=== PATIENT | male | born 1985 | race Caucasian/White ===

== ENCOUNTER → 2016-04-02 | Outpatient (CLI) | payer BC, OTHER ==
[~2016-04-02] MED LIST: ALBU0.08 INH; CHOL20009 PO; DORN1SOL INH; FERR325T5 PO; FEXO1TAB49 PO; FLUD0.1T10 PO; HMLI SC; INSPMPHMLG; MAGN250T3 PO; METO50TA16 PO; MULT-506 PO; MYCO250C26 PO; PANC1CAP PO; PANC1CAP17 PO; PRED20TA2 PO; RRALBUT2.5 NEB; SULF800T23 PO; TACR5CAP PO; TOBRAMYCIN; VLC450 PO; VNTHFA/IN INH; [UNRECOGNIZED DRUG - OTHER] IV
[2016-04-02 10:13] LABS: BASO % 0.6 %; BASO ABS # 0.06 K/uL (0-0.2); COMPLETE YES; EOS % 0.1 %; HEMATOCRIT 32.1 % (42-52); IG% 0.3 %; LYMPH % 14.3 %; LYMPH ABS # 1.44 K/uL (1.2-3.4); MEAN CELL VOLUME 90.7 fL (80-100); MEAN CORPUSCULAR HEMOGLOBIN 30.5 pg (25-34); MEAN CORPUSCULAR HGB CONC 33.6 g/dl (32-36); MEAN PLATELET VOLUME 8.6 fL (7.4-10.4); MONO % 4.8 %; NEUT % 79.9 %; PLATELET COUNT 540 K/uL (130-400); RED BLOOD COUNT 3.54 M/uL (4.7-6.1); WHITE BLOOD COUNT 10.05 K/uL (4.8-10.8)
[2016-04-02 10:39] LABS: ALT/SGPT 54 U/L (12-78); AST/SGOT 22 U/L (15-37); BLOOD UREA NITROGEN 43 mg/dl (7-18); CARBON DIOXIDE 24 mmol/L (21-32); CHLORIDE 108 mmol/L (98-107); GLUCOSE 106 mg/dl (70-99); MAGNESIUM 1.8 mg/dl (1.8-2.4); POTASSIUM 4.4 mmol/L (3.5-5.1); SODIUM 142 mmol/L (136-145)
[2016-04-02 10:44] LABS: ALKALINE PHOSPHATASE 177 U/L (45-117); PHOSPHORUS 3.4 mg/dl (2.5-4.9); TOTAL IRON BINDING CAPACITY 351 mcg/dl (250-450)
[2016-04-06 19:45] LABS: FK506 TACROLIMUS HIGHLY SENS 13.7 MCG/L (5-20); VIT E ALPHA-TOCOPHEROL 22.8 mg/L (5.7-19.9); VIT E BETA&GAMMA-TOCOPHEROL <1.0 mg/L (<=4.3); VITAMIN A** TC 921X 90 mcg/dL (38-98)
== END | disposition home or self-care (01) ==
LOC: C.LAB 12:36
PROVIDERS: ATTEND Transplant Surgery
DX: Z94.2 Lung transplant status (principal); T86.819 Unspecified complication of lung transplant; X58.XXXA Exposure to other specified factors, initial encounter; Z79.899 Other long term (current) drug therapy; D64.9 Anemia, unspecified; E84.9 Cystic fibrosis, unspecified

== ENCOUNTER → 2016-05-04 | Outpatient (CLI) | payer BC, OTHER ==
--- NOTE | 2016-05-04 15:01 | DIAGNOSTIC IMAGING REPORT ---
ULTRASOUND KIDNEYS AND BLADDER CLINICAL HISTORY: Lung transplant complication. Elevated serum creatinine. COMPARISON STUDY: No priors. TECHNIQUE: Real-time, grayscale, and color flow sonography of the kidneys and bladder is performed. Images are reviewed in the transverse and longitudinal planes. FINDINGS: Kidneys: The kidneys are normal in size and echotexture. The right kidney measures 9.1 x 4.8 x 5.4 cm and the left kidney measures 12.1 x 5.5 x 4.7 cm. There is no hydronephrosis. No shadowing renal calculi are identified. There is no sonographic evidence of contour deforming renal mass lesion. No perinephric fluid is identified. Bladder: The bladder is partially decompressed and grossly normal in appearance. Bilateral ureteral jets were seen. IMPRESSION: 1. The kidneys are normal in size and without hydronephrosis. 2. The partially decompressed bladder is grossly normal as imaged. Electronically signed by: Noel Lynn M.D. 05/04/2016 3:00 PM Dictated Date/Time: 05/04/2016 2:58 PM
== END | disposition home or self-care (01) ==
LOC: C.ULTR 14:14
PROVIDERS: ATTEND Internal Medicine Pulmonary Disease
DX: T86.819 Unspecified complication of lung transplant (principal); Z94.2 Lung transplant status; N17.0 Acute kidney failure with tubular necrosis; Y84.9 Medical procedure, unspecified as the cause of abnormal reaction of the patient, or of later complication, without mention of misadventure at the time of the procedure

== ENCOUNTER → 2016-05-30 | Outpatient (CLI) | payer BC, OTHER ==
--- NOTE | 2016-05-30 14:12 | DIAGNOSTIC IMAGING REPORT ---
RIGHT LOWER EXTREMITY VENOUS DOPPLER HISTORY: RIGHT LEG GROIN AREA F/U SCAN Right COMPARISON STUDY: None. FINDINGS: There is normal compressibility, flow, and augmentation within the right lower extremity deep venous system. IMPRESSION: No DVT within the right lower extremity Electronically signed by: Jax Ortiz M.D. 05/30/2016 2:10 PM Dictated Date/Time: 05/30/2016 2:09 PM
== END | disposition home or self-care (01) ==
LOC: C.ULTR 13:39
PROVIDERS: ATTEND Internal Medicine Pulmonary Disease
DX: I82.411 Acute embolism and thrombosis of right femoral vein (principal); E84.9 Cystic fibrosis, unspecified; T86.819 Unspecified complication of lung transplant; Z94.2 Lung transplant status; Y83.0 Surgical operation with transplant of whole organ as the cause of abnormal reaction of the patient, or of later complication, without mention of misadventure at the time of the procedure

== ENCOUNTER → 2016-06-19 | Outpatient (CLI) | payer BC, OTHER | END | disposition home or self-care (01) | LOC: C.RC 09:51 | PROVIDERS: ATTEND Internal Medicine Pulmonary Disease | DX: E84.9 Cystic fibrosis, unspecified (principal); Z94.2 Lung transplant status; Z86.718 Personal history of other venous thrombosis and embolism; N18.2 Chronic kidney disease, stage 2 (mild) ==

== ENCOUNTER → 2016-06-22 | Outpatient (CLI) | payer BC, OTHER ==
[2016-06-22 10:40] LABS: RATIO 8.1 mcg/mg (0-30.0)
[2016-06-22 10:56] LABS: ESTIMATED AVERAGE GLUCOSE 160 mg/dl; HA1C FLAG Normal (Normal)
== END | disposition home or self-care (01) ==
LOC: C.LAB 09:20
PROVIDERS: ATTEND Nurse Practitioner Adult Health
DX: E84.9 Cystic fibrosis, unspecified (principal); E55.9 Vitamin D deficiency, unspecified; E11.65 Type 2 diabetes mellitus with hyperglycemia; Z94.2 Lung transplant status

== ENCOUNTER 2016-07-03 00:18 | Emergency (ER) | payer BC, OTHER ==
[~2016-07-03] VITALS: Ht 165.1 cm; Wt 59.5 kg
[~2016-07-03 00:18] MED LIST changes: -CHOL20009 PO; -FERR325T5 PO; -FEXO1TAB49 PO; -FLUD0.1T10 PO; -INSPMPHMLG; -MAGN250T3 PO; -METO50TA16 PO; -MYCO250C26 PO; -PANC1CAP17 PO; -PRED20TA2 PO; -RRALBUT2.5 NEB; -SULF800T23 PO; -TACR5CAP PO; -VLC450 PO; -VNTHFA/IN INH
[2016-07-03 00:20] VITALS: TEMP 37.2; Ht 165.1 cm; Wt 59.5 kg
[2016-07-03] MEDS ORDERED: HYDROmorphone INJ 1 MG/ML SYR IV STA ×2 (00:36→07:59)
[2016-07-03] MEDS ORDERED: SODIUM CHLORIDE 0.9% 1000ML 1,000 ML IV STA ×2 (00:36)
[2016-07-03] MEDS ORDERED: ONDANSETRON INJ 2 MG/ML 2 ML VIAL IV STA (00:36)
[2016-07-03 00:53] VITALS: O2SAT 96
[2016-07-03 01:12] LABS: HEMATOCRIT 31.9 % (42-52); MEAN CELL VOLUME 87.9 fL (80-100); MEAN CORPUSCULAR HEMOGLOBIN 30.3 pg (25-34); MEAN CORPUSCULAR HGB CONC 34.5 g/dl (32-36); MEAN PLATELET VOLUME 8.6 fL (7.4-10.4); PLATELET COUNT 564 K/uL (130-400); RED BLOOD COUNT 3.63 M/uL (4.7-6.1); WHITE BLOOD COUNT 4.46 K/uL (4.8-10.8)
[2016-07-03] MEDS ORDERED: LEVAQUIN 750MG / 150ML D5W IV STA (01:14)
[2016-07-03] MEDS ORDERED: ALBUT/IPRATROP 3MG/0.5MG NEB 3 ML VIAL INH STA (01:20)
[2016-07-03] MEDS ORDERED: HYDROmorphone INJ 0.5 MG/0.5 ML SYR IV STA (01:20)
[2016-07-03] MEDS ORDERED: PANC1CAP17 PO (01:30)
[2016-07-03] MEDS ORDERED: DEXAMETHASONE SOD INJ 10 MG/ML VIAL IV ONE (01:30)
[2016-07-03] MEDS ORDERED: CHOL20009 PO (01:31)
[2016-07-03 01:32] LABS: BUN/CREATININE RATIO 18.8 (10-20); CALCIUM 8.5 mg/dl (8.5-10.1); CREATININE 1.8 mg/dl (0.60-1.40); POTASSIUM 5.2 mmol/L (3.5-5.1)
[2016-07-03] MEDS ORDERED: VLC450 PO (01:32)
[2016-07-03] MEDS ORDERED: PRED20TA2 PO (01:33)
[2016-07-03] MEDS ORDERED: FLUD0.1T10 PO (01:33)
[2016-07-03] MEDS ORDERED: FERR325T5 PO (01:35)
[2016-07-03] MEDS ORDERED: MYCO250C26 PO (01:35)
[2016-07-03] MEDS ORDERED: SULF800T23 PO (01:36)
[2016-07-03] MEDS ORDERED: FEXO1TAB49 PO (01:37)
[2016-07-03 01:39] LABS: COMPLETE YES; DOHLE BODIES 1+; IG% 2.2 %; LYMPH % 8.5 %; LYMPH ABS # 0.38 K/uL (1.2-3.4); MONO % 4.5 %; NEUT % 84.8 %
[2016-07-03] MEDS ORDERED: TACR5CAP PO (01:43)
[2016-07-03] MEDS ORDERED: VNTHFA/IN INH (01:45)
[2016-07-03] MEDS ORDERED: RRALBUT2.5 NEB (01:46)
[2016-07-03] MEDS ORDERED: METO50TA16 PO (01:47)
[2016-07-03] MEDS ORDERED: INSPMPHMLG (01:48)
[2016-07-03] MEDS ORDERED: MAGN250T3 PO (01:49)
[2016-07-03 01:50] LABS: BETA-HYDROXYBUTYRATE 1.32 mg/dL (0.2-2.81)
--- NOTE | 2016-07-03 02:59 | EMERGENCY ROOM VISIT NOTE ---
History First contact with patient: 00:23 Chief Complaint: ABDOMINAL PAIN Stated Complaint: STOMACH PAIN Nursing Triage Summary: c/o abd pain since the middle of the day vomited one time no disrrhea. History of Present Illness The patient is a 31 year old male who presents to the Emergency Room with complaints of productive cough with yellow sputum for the past few days who developed upper abdominal pain today described as aching, ranging in severity 8 out of 10 with nausea and vomiting. Patient called his lung transplant specialist in [place] and was advised take Mucinex. Patient states the pain got worse and came here. No history of pancreatitis. He still has his gallbladder. He's had a hernia repair. Blood sugars have been around 150-250. This is normal for him. Patient denies chest pain, dyspnea, fever, chills, diarrhea, back pain, radiating pain, lightheadedness or dizziness. He is tolerating by mouth fluids and food. Lung transplant was in February 2016. Patient states he's been doing well until now. Review of Systems See HPI for pertinent positives & negatives. A total of 10 systems reviewed and were otherwise negative. Past Medical/Surgical History Medical Problems: (1) Cystic fibrosis (2) Pneumonia Lung transplant, diabetes, hernia repair Social History Smoking Status: Never Smoker Alcohol Use: none Drug Use: none Marital Status: Housing Status: lives with family Current/Historical Medications Scheduled Cholecalciferol (Vitamin D), 4,000 UNIT PO DAILY Ferrous Sulfate (Ferrous Sulfate), 325 MG PO BIDM Fexofenadine Hcl (Radha Allergy), 1 TAB PO DAILY Fludrocortisone Acetate (Florinef), 0.1 MG PO DAILY Insulin Human Lispro (Insulin Humalog Pump ), 1 EA UD Magnesium (Magnesium 250 mg), 1 TAB PO BID Metoprolol Tartrate (Lopressor) (Lopressor), 50 MG PO BID Mycophenolate Mofetil (Cellcept), 4 CAP PO BID Pancrelipase (Lipase-Protease- (Zenpep 47088 Unit), PO UD Prednisone (Prednisone Tab), 20 MG PO DAILY Sulfa/Trimethoprim (Bactrim Ds 800MG/160MG), 1 TAB PO 3XWK Tacrolimus (Prograf), 10 MG PO BID Valganciclovir (Valcyte), 900 MG PO DAILY Scheduled PRN Albuterol Hfa (Ventolin Hfa), 2 PUFFS INH Q4 PRN for SOB/Wheezing Albuterol Sulf (Albuterol Sulfate), 5 MG NEB Q4 PRN for SOB/Wheezing Allergies Coded Allergies: Vancomycin (Unverified Allergy, Intermediate, RED MAN SYNDROME, 07/03/16) Clavulanic Acid (Unverified Allergy, Unknown, allergy betalactamase inhibitor, 07/03/16) Penicillins (Unverified Allergy, Unknown, ., 07/03/16) Physical Exam Vital Signs Date Time Temp Pulse Resp B/P Pulse Ox O2 Delivery O2 Flow Rate FiO2 07/03/16 02:58 93 20 120/78 94 Room Air 07/03/16 01:56 94 18 129/83 92 Room Air 07/03/16 00:56 94 07/03/16 00:54 93 20 139/91 96 Room Air 07/03/16 00:53 96 Room Air 07/03/16 00:53 96 Room Air 07/03/16 00:20 37.2 88 16 151/91 96 Room Air Physical Exam VITALS: Vitals are noted on the nurse's note and reviewed by myself. Vital signs stable. GENERAL: Pleasant male, in no acute distress, nondiaphoretic, well-developed well-nourished. SKIN: The skin was without rashes, erythema, edema, or bruising. There is no tenting of the skin. Capillary reflex less than 2 seconds. HEAD: Normocephalic atraumatic. EARS: External auditory canals clear, tympanic membranes pearly jones without erythema or effusion bilaterally. EYES: Pupils equal round and reactive to light and accommodation. Conjunctivae without injection, sclerae without icterus. Extraocular movements intact. NOSE: Patent, turbinates without inflammation or discharge. No sinus tenderness. MOUTH: Mucous membranes moist. Pharynx without erythema or exudate. Uvula midline. Airway patent. Tongue does not deviate. NECK: Supple without nuchal rigidity. No lymphadenopathy. No thyromegaly. Cervical spine is nontender. No JVD. HEART: Regular rate and rhythm without murmurs gallops or rubs. LUNGS: Mild diffuse end expiratory wheezes, without rales or rhonchi. No dullness to percussion. No retractions or accessory muscle use. ABDOMEN: Positive bowel sounds x 4. Normal tympanic percussion. Soft, tender to palpation epigastric left upper quadrant, no CVA tenderness, without masses or organomegaly. Adrian sign negative. No guarding or rebound tenderness. MUSCULOSKELETAL: No muscle atrophy, erythema, or edema noted. NEURO: Patient was alert and oriented to person place and time. Normal sensation to light and sharp touch. No focal neurological deficits. Medical Decision & Procedures Laboratory Results 07/03/16 01:05 Red Blood Count 3.63, Mean Corpuscular Volume 87.9, Mean Corpuscular Hemoglobin 30.3, Mean Corpuscular Hemoglobin Concent 34.5, Mean Platelet Volume 8.6, Neutrophils (%) (Auto) 84.8, Lymphocytes (%) (Auto) 8.5, Monocytes (%) (Auto) 4.5, Eosinophils (%) (Auto) 0.0, Basophils (%) (Auto) 0.0, Neutrophils # (Auto) 3.78, Lymphocytes # (Auto) 0.38, Monocytes # (Auto) 0.20, Eosinophils # (Auto) 0.00, Basophils # (Auto) 0.00 07/03/16 01:05 Test 07/03/16 01:05 07/03/16 01:18 White Blood Count 4.46 K/uL (4.8-10.8) Red Blood Count 3.63 M/uL (4.7-6.1) Hemoglobin 11.0 g/dL (14.0-18.0) Hematocrit 31.9 % (42-52) Mean Corpuscular Volume 87.9 fL (80-100) Mean Corpuscular Hemoglobin 30.3 pg (25-34) Mean Corpuscular Hemoglobin Concent 34.5 g/dl (32-36) Platelet Count 564 K/uL (130-400) Mean Platelet Volume 8.6 fL (7.4-10.4) Neutrophils (%) (Auto) 84.8 % Lymphocytes (%) (Auto) 8.5 % Monocytes (%) (Auto) 4.5 % Eosinophils (%) (Auto) 0.0 % Basophils (%) (Auto) 0.0 % Neutrophils # (Auto) 3.78 K/uL (1.4-6.5) Lymphocytes # (Auto) 0.38 K/uL (1.2-3.4) Monocytes # (Auto) 0.20 K/uL (0.11-0.59) Eosinophils # (Auto) 0.00 K/uL (0-0.5) Basophils # (Auto) 0.00 K/uL (0-0.2) RDW Standard Deviation 41.9 fL (36.4-46.3) RDW Coefficient of Variation 12.9 % (11.5-14.5) Immature Granulocyte % (Auto) 2.2 % Immature Granulocyte # (Auto) 0.10 K/uL (0.00-0.02) Dohle Bodies 1+ Anion Gap 7.0 mmol/L (3-11) Est Creatinine Clear Calc Drug Dose 49.1 ml/min Estimated GFR () 56.1 Estimated GFR (Non- 48.4 BUN/Creatinine Ratio 18.8 (10-20) Calcium Level 8.5 mg/dl (8.5-10.1) Total Bilirubin 0.6 mg/dl (0.2-1) Direct Bilirubin 0.2 mg/dl (0-0.2) Aspartate Amino Transf (AST/SGOT) 22 U/L (15-37) Alanine Aminotransferase (ALT/SGPT) 27 U/L (12-78) Alkaline Phosphatase 96 U/L (45-117) Total Protein 7.2 gm/dl (6.4-8.2) Albumin 3.2 gm/dl (3.4-5.0) Lipase 32 U/L (73-393) Beta-Hydroxybutyric Acid 1.32 mg/dL (0.2-2.81) Bedside Lactic Acid Venous 1.00 mmol/L (0.90-1.70) Medications Administered Medications (Trade) Dose Ordered Sig/Tracy Route Start Time Stop Time Status Last Admin Dose Admin Hydromorphone HCl (Dilaudid Inj) 1 mg NOW STAT IV 07/03/16 00:36 07/03/16 00:39 DC 07/03/16 00:57 1 MG Ondansetron HCl 4 mg 4 mg NOW STAT IV 07/03/16 00:36 07/03/16 00:39 DC 07/03/16 00:57 4 MG Sodium Chloride 1,000 ml @ 999 mls/hr Q1H1M STAT IV 07/03/16 00:36 07/03/16 01:36 DC 07/03/16 00:57 999 MLS/HR Sodium Chloride (Nss 1000ml) 1,000 ml @ 125 mls/hr Q8H STAT IV 07/03/16 00:36 07/03/16 08:35 07/03/16 00:36 125 MLS/HR Levofloxacin (Levaquin / D5W) 750 mg NOW STAT IV 07/03/16 01:14 07/03/16 01:15 DC 07/03/16 01:56 750 MG Albuterol/ Ipratropium (Duoneb) 3 ml NOW STAT INH 07/03/16 01:20 07/03/16 01:21 DC 07/03/16 01:29 3 ML Dexamethasone Sodium Phosphate (Decadron Inj) 10 mg NOW ONCE IV 07/03/16 01:30 07/03/16 01:31 DC 07/03/16 01:29 10 MG Hydromorphone HCl (Dilaudid Inj) 0.5 mg NOW STAT IV 07/03/16 01:20 07/03/16 01:21 DC 07/03/16 01:29 0.5 MG ED Course Prior records/ancillary studies reviewed. Triage Nursing notes reviewed. Additional history obtained from family The patient's history was concerning for abdominal pain. Differential diagnosis: Etiologies such as pneumonia, appendicitis, diverticulitis, PUD, biliary pathology, UTI, pancreatitis, obstruction, mesenteric ischemia, aortic pathology , infections, inflammatory bowel disease, renal colic, as well as others were entertained. Physical examination findings: As above. ER treatment provided: Dilaudid, Zofran, IV fluids, Decadron, albuterol, Levaquin On reassessment the patient felt better. Diagnostics interpreted by me: ECG: Normal sinus, normal intervals, no acute ST-T wave changes. Impression normal sinus rhythm interpreted by myself The labs revealed mild anemia, hyperglycemia without DKA mildly elevated potassium at 5.1. Blood cultures pending, negative lactic acid Imaging studies: CT ABDOMEN & PELVIS: Impression: Small bowel obstruction with apparent transition point in the deep pelvis (2-56) . No pneumatosis or free air. Patchy areas of consolidation seen within the lower lobes likely representing pneumonia, to include aspiration pneumonia. Small amount of free fluid in the pelvis. Additional findings: The liver, gallbladder, spleen, pancreas, and adrenal glands are unremarkable. The kidneys, ureters and urinary bladder are unremarkable. The appendix is unremarkable. Noninflamed colonic diverticulosis. No acute osseous abnormality. Radiologist: Dickson Osei MD Chest x-ray concerning for right lower lobe pneumonia per my interpretation, no free air Consultation: A consultation was placed with the transplant specialist at [facility] per patient's request for transfer,Dr. Soares. The case was discussed and diagnostics were reviewed. The patient was evaluated in the ER for further treatment. Exam and history seem consistent with pneumonia and bowel obstruction. Patient was started on antibiotics. He is placed nothing by mouth. He is requesting transfer to his transplant hospital in [place]. Transfer paperwork was filled out patient was transferred in stable condition. By the evaluation outlined above emergent etiologies such as appendicitis, diverticulitis, PUD, biliary pathology, UTI, pancreatitis, mesenteric ischemia, aortic pathology, inflammatory bowel disease, renal colic, as well as others were deemed relatively unlikely. The pt informed about the findings as listed above. All questions were answered and pleased with the treatment. Case reviewed with my attending Medical Decision As above Impression Primary Impression: Bilateral pneumonia Additional Impressions: Small bowel obstruction Cystic fibrosis Departure Information Dispostion Transfer Acute Care Facility Condition [facility] Referrals Aaliyah Renteria M.D. (MEDICAL) (PCP) Patient Instructions [facility] Problem Qualifiers Primary Impression: Bilateral pneumonia Pneumonia type: due to unspecified organism Lung location: lower lobe of lung Qualified Codes: J18.9 - Pneumonia, unspecified organism
--- NOTE | 2016-07-03 06:51 | DIAGNOSTIC IMAGING REPORT ---
CHEST ONE VIEW PORTABLE CLINICAL HISTORY: CHEST PAIN dyspnea COMPARISON STUDY: 11/28/2012 FINDINGS: Bibasilar parenchymal infiltrates. Central catheter in superior vena cava. Pulmonary apices are clear. IMPRESSION: Bibasilar parenchymal infiltrative change Electronically signed by: Mal Field M.D. 07/03/2016 6:49 AM Dictated Date/Time: 07/03/2016 6:46 AM
--- NOTE | 2016-07-03 07:16 | DIAGNOSTIC IMAGING REPORT ---
ABDOMEN AND PELVIS CT WITHOUT CONTRAST CT DOSE: 271.99 mGy.cm HISTORY: Pain upper abd pain, CF and lung transplant TECHNIQUE: Multiaxial CT images of the abdomen and pelvis were performed without contrast. COMPARISON STUDY: None. FINDINGS: Bilateral bibasilar parenchymal infiltrative change. Liver spleen and pancreas are unremarkable. Kidneys are considered negative for hydronephrosis. There are no abnormal calcifications. Small hiatal hernia. Findings consistent with distal small bowel obstruction read etiology is unknown. No evidence for pneumatosis. The appendix is normal. Partial fecal dilatation of the small bowel. No evidence for colonic distention. Trace free fluid within the right central pelvic cul-de-sac. Nonspecific curvilinear density transaxial image 72 of 90 within the soft tissue pelvis. IMPRESSION: 1. Nonspecific distal small bowel obstructive change. 2. Etiology is unknown. 3. Bibasilar parenchymal infiltrative change. 4. Small mild free fluid within pelvic cul-de-sac with nonspecific calcific density as discussed. 5. Nonobstructive colonic pattern. Electronically signed by: Mal Field M.D. 07/03/2016 7:15 AM Dictated Date/Time: 07/03/2016 7:10 AM
[2016-07-03 08:00] VITALS: BP 129/87; PULSE 77
[2016-07-03] MEDS ORDERED: ONDANSETRON INJ 2 MG/ML 2 ML VIAL ONE (08:14)
[2016-07-03 08:20] VITALS: O2SAT 95
== END 2016-07-03 08:21 | disposition short-term general hospital (02) ==
LOC: C.EDB 00:19
DX: J18.9 Pneumonia, unspecified organism (principal); K56.60 Unspecified intestinal obstruction; E84.9 Cystic fibrosis, unspecified; E11.9 Type 2 diabetes mellitus without complications; Z94.2 Lung transplant status; Z79.4 Long term (current) use of insulin; Z79.899 Other long term (current) drug therapy; Z88.0 Allergy status to penicillin; Z88.1 Allergy status to other antibiotic agents; Z88.8 Allergy status to other drugs, medicaments and biological substances

== ENCOUNTER → 2016-11-08 | Outpatient (CLI) | payer BC, OTHER ==
[~2016-11-08] MED LIST changes: -ALBU0.08 INH; +CHOL20009 PO; -DORN1SOL INH; +FERR325T5 PO; +FEXO1TAB49 PO; +FLUD0.1T10 PO; -HMLI SC; +INSPMPHMLG; +MAGN250T3 PO; +METO50TA16 PO; -MULT-506 PO; +MYCO250C26 PO; -PANC1CAP PO; +PANC1CAP17 PO; +PRED20TA2 PO; +RRALBUT2.5 NEB; +SULF800T23 PO; +TACR5CAP PO; -TOBRAMYCIN; +VLC450 PO; +VNTHFA/IN INH; -[UNRECOGNIZED DRUG - OTHER] IV
== END | disposition home or self-care (01) ==
LOC: C.RC 10:23
PROVIDERS: ATTEND Internal Medicine Pulmonary Disease
DX: E84.9 Cystic fibrosis, unspecified (principal); Z94.2 Lung transplant status; N17.9 Acute kidney failure, unspecified; N18.9 Chronic kidney disease, unspecified; E87.5 Hyperkalemia

== ENCOUNTER → 2017-03-12 | Outpatient (CLI) | payer BC, OTHER ==
--- NOTE | 2017-03-25 06:47 | CODING QUERY MEDICAL NECESSITY ---
SUPPORTING DIAGNOSIS NEEDED A supporting diagnosis is required for the test/procedure performed on this patient in order for us to be reimbursed by the patient's insurance. Please provide a supporting diagnosis for the following test/procedure listed below next to the test name along with your signature. *If there is no additional diagnosis for this patient that would support the following test/procedure please document that below next to the test/procedure. Test(s)/Procedure(s) that require a supporting diagnosis: * DXA, BONE DENSITY AXIAL DIAGNOSIS: Provider Signature: Date: Thank you Tamela Entasso Information Management Once completed, please kindly fax back to [phone] For questions please call [phone]
== END | disposition home or self-care (01) ==
LOC: C.MAMM 13:29
PROVIDERS: ATTEND Internal Medicine Pulmonary Disease
DX: E84.9 Cystic fibrosis, unspecified (principal); Z94.2 Lung transplant status; Z79.899 Other long term (current) drug therapy

== ENCOUNTER 2019-10-04 07:12 | Inpatient (IN) ==
[2019-10-04] MEDS ORDERED: MoRPHine SULFATE 4 MG/ML 1 ML CARP\\VIAL IV STA ×2 (07:36→11:52)
[2019-10-04] MEDS ORDERED: ONDANSETRON INJ 2 MG/ML 2 ML VIAL IV STA (07:36)
--- NOTE | 2019-10-04 07:38 | Emergency Department Note ---
History of Present Illness General Chief complaint: Cardiac Assessment Stated complaint: CHEST PAINS - DEHYDRATED,CRAMPING Time Seen by Provider: 10/04/19 07:25 History of Present Illness Maximum Pain Intensity: 8 This is a 34-year-old male that presents to the emergency department via private vehicle with complaints of "chest pain, dehydrated, cramping". 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 He states that he often works late hours till 1 or 2 in the morning. 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 He describes it as a "burning sensation in the lungs". He also notes some chest pain in the substernal region. He states that he has a history of cystic fibrosis and underwent lung transplantation a few years ago at [facility], [place], operated by [facility] but the symptoms do not seem consistent with previous illness. The patient denies any trauma or injury. No fevers or chills. No cough. He does not feel short of breath. Home Medications Home Medications Medication Instructions Recorded Confirmed Type albuterol sulfate [Ventolin HFA] 2 puff INHALATION Q4H PRN 08/10/18 10/04/19 History cholecalciferol (vitamin D3) 4,000 unit PO QDL 08/10/18 10/04/19 History [Vitamin D3] ferrous sulfate 325 mg PO BIDM 08/10/18 10/04/19 History fexofenadine [Radha Allergy] 180 mg PO QAM 08/10/18 10/04/19 History mucdii-tzbrvmtg-nlmgltn [Zenpep] 6 cap PO TIDM 08/10/18 10/04/19 History magnesium 250 mg PO BID 08/10/18 10/04/19 History metoprolol tartrate 50 mg PO BID 08/10/18 10/04/19 History prednisone 5 mg PO QAM 08/10/18 10/04/19 History sulfamethoxazole-trimethoprim 0.5 tab PO 3XWK 08/10/18 10/04/19 History tacrolimus 2 mg PO BID 08/10/18 10/04/19 History valganciclovir 450 mg PO DAILY 08/10/18 10/04/19 History Novolog U-100 Insulin aspart 100 See Rx Instructions CONTINUOUS 04/23/19 10/04/19 Rx unit/mL subcutaneous solution SUBCUTANEOUS INFUSION UD #30 ml NS azithromycin 250 mg PO USEASDIRECTD 10/04/19 10/04/19 History esomeprazole magnesium 40 mg PO BID 10/04/19 10/04/19 History everolimus (immunosuppressive) 1.5 mg PO BID 10/04/19 10/04/19 History [Zortress] Allergies Allergy/AdvReac Type Severity Reaction Status Date / Time vancomycin Allergy Intermediate RED MAN Unverified 10/04/19 09:50 SYNDROME clavulanic acid Allergy Unknown allergy Unverified 10/04/19 09:50 betalactamase inhibitor Penicillins Allergy Unknown . 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 GERD (gastroesophageal reflux disease) H/O testicular biopsy Insulin dependent diabetes mellitus Surgical History H/O inguinal hernia repair Lung transplanted Social History Preferred Language: Estonian Communication Ability: Effective Advertising Display Rotator Required: No Beliefs That Will Affect Care: None Current Living Situation: Other Current Living Situation Comment: friend Other Information That Helps Us Care for You: No Feels Safe at Home: Yes Safety Concerns: Feels Safe At This Time Smoking Status: Never smoker Hx Alcohol Use: Yes Alcohol type: beer Hx Substance Use: No Review of Systems A total of 10 systems reviewed and were otherwise negative Physical Exam Vital Signs Vital Signs - 24 hr 10/04/19 07:20 10/04/19 07:30 10/04/19 07:31 Temperature 36.9 C Temperature Source Oral Pulse Rate 66 61 Pulse Rate [Finger] Pulse Rate from SpO2 Sensor 61 Respiratory Rate 20 16 Respiratory Effort / Characteristics Non-Labored Respiratory Depth Normal Respiratory Pattern Regular Blood Pressure 150/89 H Blood Pressure [Right Arm] Blood Pressure Mean 109 120 Blood Pressure Mean [Right Arm] Pulse Oximetry 97 99 99 Oxygen Delivery Method Room Air Room Air Room Air Sepsis Recent Fever Within 48 Hours No Sepsis New/Unexplained Change in Mental Status N/A Sepsis Action Taken by Nursing No Action Required 10/04/19 07:33 10/04/19 07:40 10/04/19 07:50 Temperature Temperature Source Pulse Rate 62 59 L 66 Pulse Rate [Finger] Pulse Rate from SpO2 Sensor 64 59 L 67 Respiratory Rate 22 16 14 Respiratory Effort / Characteristics Respiratory Depth Respiratory Pattern Blood Pressure Blood Pressure [Right Arm] Blood Pressure Mean Blood Pressure Mean [Right Arm] Pulse Oximetry 93 100 99 Oxygen Delivery Method Room Air Room Air Room Air Sepsis Recent Fever Within 48 Hours Sepsis New/Unexplained Change in Mental Status Sepsis Action Taken by Nursing 10/04/19 08:00 10/04/19 08:01 10/04/19 08:10 Temperature Temperature Source Pulse Rate 60 60 62 Pulse Rate [Finger] Pulse Rate from SpO2 Sensor 60 61 63 Respiratory Rate 18 13 18 Respiratory Effort / Characteristics Respiratory Depth Respiratory Pattern Blood Pressure 147/93 H Blood Pressure [Right Arm] Blood Pressure Mean 106 Blood Pressure Mean [Right Arm] Pulse Oximetry 100 100 100 Oxygen Delivery Method Room Air Room Air Room Air Sepsis Recent Fever Within 48 Hours Sepsis New/Unexplained Change in Mental Status Sepsis Action Taken by Nursing 10/04/19 08:20 10/04/19 08:30 10/04/19 08:31 Temperature Temperature Source Pulse Rate 77 68 76 Pulse Rate [Finger] Pulse Rate from SpO2 Sensor 78 69 73 Respiratory Rate 15 18 15 Respiratory Effort / Characteristics Respiratory Depth Respiratory Pattern Blood Pressure 134/91 Blood Pressure [Right Arm] Blood Pressure Mean 103 Blood Pressure Mean [Right Arm] Pulse Oximetry 98 97 97 Oxygen Delivery Method Room Air Room Air Room Air Sepsis Recent Fever Within 48 Hours Sepsis New/Unexplained Change in Mental Status Sepsis Action Taken by Nursing 10/04/19 08:40 10/04/19 09:18 10/04/19 09:20 Temperature Temperature Source Pulse Rate 68 71 71 Pulse Rate [Finger] Pulse Rate from SpO2 Sensor 68 Respiratory Rate 16 24 13 Respiratory Effort / Characteristics Respiratory Depth Respiratory Pattern Blood Pressure Blood Pressure [Right Arm] Blood Pressure Mean Blood Pressure Mean [Right Arm] Pulse Oximetry 97 Oxygen Delivery Method Room Air Room Air Room Air Sepsis Recent Fever Within 48 Hours Sepsis New/Unexplained Change in Mental Status Sepsis Action Taken by Nursing 10/04/19 09:30 10/04/19 09:40 10/04/19 09:50 Temperature Temperature Source Pulse Rate 68 68 61 Pulse Rate [Finger] Pulse Rate from SpO2 Sensor Respiratory Rate 15 13 14 Respiratory Effort / Characteristics Respiratory Depth Respiratory Pattern Blood Pressure Blood Pressure [Right Arm] Blood Pressure Mean Blood Pressure Mean [Right Arm] Pulse Oximetry Oxygen Delivery Method Room Air Room Air Room Air Sepsis Recent Fever Within 48 Hours Sepsis New/Unexplained Change in Mental Status Sepsis Action Taken by Nursing 10/04/19 10:00 10/04/19 10:10 10/04/19 10:20 Temperature Temperature Source Pulse Rate 65 60 68 Pulse Rate [Finger] Pulse Rate from SpO2 Sensor Respiratory Rate 14 13 17 Respiratory Effort / Characteristics Respiratory Depth Respiratory Pattern Blood Pressure Blood Pressure [Right Arm] Blood Pressure Mean Blood Pressure Mean [Right Arm] Pulse Oximetry Oxygen Delivery Method Room Air Room Air Room Air Sepsis Recent Fever Within 48 Hours Sepsis New/Unexplained Change in Mental Status Sepsis Action Taken by Nursing 10/04/19 10:30 10/04/19 10:40 10/04/19 10:50 Temperature Temperature Source Pulse Rate 63 67 63 Pulse Rate [Finger] Pulse Rate from SpO2 Sensor Respiratory Rate 12 12 14 Respiratory Effort / Characteristics Respiratory Depth Respiratory Pattern Blood Pressure Blood Pressure [Right Arm] Blood Pressure Mean Blood Pressure Mean [Right Arm] Pulse Oximetry Oxygen Delivery Method Room Air Room Air Room Air Sepsis Recent Fever Within 48 Hours Sepsis New/Unexplained Change in Mental Status Sepsis Action Taken by Nursing 10/04/19 11:00 10/04/19 11:10 10/04/19 11:20 Temperature Temperature Source Pulse Rate 74 63 63 Pulse Rate [Finger] Pulse Rate from SpO2 Sensor Respiratory Rate 16 16 18 Respiratory Effort / Characteristics Respiratory Depth Respiratory Pattern Blood Pressure Blood Pressure [Right Arm] Blood Pressure Mean Blood Pressure Mean [Right Arm] Pulse Oximetry Oxygen Delivery Method Room Air Room Air Room Air Sepsis Recent Fever Within 48 Hours Sepsis New/Unexplained Change in Mental Status Sepsis Action Taken by Nursing 10/04/19 11:29 10/04/19 11:30 10/04/19 11:31 Temperature Temperature Source Pulse Rate 71 58 L 58 L Pulse Rate [Finger] 73 Pulse Rate from SpO2 Sensor 71 59 L 58 L Respiratory Rate 15 10 L Respiratory Effort / Characteristics Non-Labored Spontaneous Respiratory Depth Normal Respiratory Pattern Regular Blood Pressure 134/88 146/93 H Blood Pressure [Right Arm] 146/93 H Blood Pressure Mean 98 100 Blood Pressure Mean [Right Arm] 110 Pulse Oximetry 98 99 99 Oxygen Delivery Method Room Air Room Air Room Air Sepsis Recent Fever Within 48 Hours Sepsis New/Unexplained Change in Mental Status Sepsis Action Taken by Nursing 10/04/19 11:40 10/04/19 11:50 Temperature Temperature Source Pulse Rate 59 L 58 L Pulse Rate [Finger] Pulse Rate from SpO2 Sensor 58 L 58 L Respiratory Rate 11 L 17 Respiratory Effort / Characteristics Respiratory Depth Respiratory Pattern Blood Pressure Blood Pressure [Right Arm] Blood Pressure Mean Blood Pressure Mean [Right Arm] Pulse Oximetry 95 97 Oxygen Delivery Method Room Air Room Air Sepsis Recent Fever Within 48 Hours Sepsis New/Unexplained Change in Mental Status Sepsis Action Taken by Nursing VITAL SIGNS - Vital signs and nursing notes were reviewed. Stable and afebrile. GENERAL - 34-year-old male appearing his stated age who is in no acute distress. Communicates well with provider and answers questions appropriately. SKIN - Without rashes. No meningeal or petechial rash. HEAD - NC/AT. EYES - PERRL with EOMI bilaterally. Sclera anicteric. EARS - No deformities of external structures noted on gross examination bilaterally. NOSE - Midline and without cyanosis. No epistaxis or purulent drainage noted. MOUTH/OROPHARYNX - Without perioral cyanosis. Buccal mucosa pink and moist and without leukoplakia. Tongue midline with equal elevation of palate bilaterally. No tonsillar hypertrophy, erythema, or exudates noted. Good dentition noted. NECK - Neck with FROM. No nuchal rigidity. LUNGS - Chest wall symmetric without accessory muscle use, intercostals retractions, or central cyanosis. Normal vesicular breath sounds CTA B/L. No wheezes, rales, or rhonchi appreciated. CARDIAC - RRR with S1/S2. No murmur, rubs, or gallops appreciated. EXTREMITIES - No clubbing or peripheral cyanosis. No pretibial edema present. +5/5 strength noted in UE/LE bilaterally. NEUROLOGIC - Cranial nerves II through XII grossly intact. PSYCH - A&O, and cooperates fully with examiner. Pt is very pleasant and interacts well with examiner. Course Administered Medications Sodium Chloride (Nss 1000ml) 1,000 mls @ 100 mls/hr IV .Q10H SIOMARA Stop: 10/04/19 22:14 Last Admin: 10/04/19 13:41 Dose: 100 mls/hr Documented by: [id number] Discontinued Medications Sodium Chloride (Nss) 500 mls @ 500 mls/hr IV .Q1H ONE Stop: 10/04/19 08:51 Last Infusion: 10/04/19 09:15 Dose: 0 mls/hr Documented by: [id number] Admin: 10/04/19 08:09 Dose: 500 mls/hr Documented by: [id number] Morphine Sulfate (Morphine Sulfate) 4 mg IV NOW STA Stop: 10/04/19 07:37 Last Admin: 10/04/19 08:09 Dose: 4 mg Documented by: [id number] Morphine Sulfate (Morphine Sulfate) 4 mg IV NOW STA Stop: 10/04/19 11:53 Last Admin: 10/04/19 11:58 Dose: 4 mg Documented by: [id number] Ondansetron HCl (Zofran) 4 mg IV NOW STA Stop: 10/04/19 07:37 Last Admin: 10/04/19 08:09 Dose: 4 mg Documented by: [id number] Potassium Chloride (Klor-Con M20) 20 meq PO NOW STA Stop: 10/04/19 12:04 Last Admin: 10/04/19 12:31 Dose: 20 meq Documented by: [id number] Medical Decision Making Laboratory Data Result diagrams: 10/04/19 07:59 10/04/19 07:59 Lab Results 10/04/19 10/04/19 10/04/19 Range/Units 07:59 07:59 07:59 WBC 7.73 (4.8-10.8) K/uL RBC 3.85 L (4.7-6.1) M/uL Hgb 11.1 L (14.0-18.0) g/dL Hct 30.9 L (42-52) % MCV 80.3 (80-100) fL MCH 28.8 (25-34) pg MCHC 35.9 (32-36) g/dL RDW Std Deviation 36.8 (36.4-46.3) fL RDW Coeff of Adrianna 12.5 (11.5-14.5) % Plt Count 204 (130-400) K/uL MPV 9.1 (7.4-10.4) fL Immature Gran % (Auto) 0.8 % Neut % (Auto) 49.7 % Lymph % (Auto) 44.2 % [place] % (Auto) 3.5 % Eos % (Auto) 1.7 % Baso % (Auto) 0.1 % Neut # (Auto) 3.84 (1.4-6.5) K/uL Lymph # (Auto) 3.42 H (1.2-3.4) K/uL [place] # (Auto) 0.27 (0.11-0.59) K/uL Eos # (Auto) 0.13 (0-0.5) K/uL Baso # (Auto) 0.01 (0-0.2) K/uL Immature Gran # (Auto) 0.06 H (0.00-0.02) K/uL PT 10.3 (9.0-12.0) Seconds INR 1.0 (0.9-1.1) APTT 27.6 (21.0-31.0) Seconds PTT Ratio 1.0 Sodium 128 L (136-145) mmol/L Potassium 3.3 L (3.5-5.1) mmol/L Chloride 94 L (98-107) mmol/L Carbon Dioxide 24 (21-32) mmol/L Anion Gap 10.0 (3-11) BUN 42 H (7-18) mg/dl Creatinine 3.65 H (0.6-1.4) mg/dl Est Cr Clr Drug Dosing 23.8 ml/min Est GFR ( Amer) 23.4 Est GFR (Non-Af Amer) 20.1 BUN/Creatinine Ratio 11.5 (10-20) Glucose 97 (70-99) mg/dl Calcium 9.0 (8.5-10.1) mg/dl Magnesium 1.9 (1.8-2.4) mg/dl Total Bilirubin 2.1 H (0.2-1) mg/dl AST 27 (15-37) U/L ALT 31 (12-78) U/L Alkaline Phosphatase 126 H (45-117) U/L Troponin I < 0.015 (0-0.045) ng/ml Total Protein 7.3 (6.4-8.2) gm/dl Albumin 3.7 (3.4-5.0) gm/dl Globulin 3.6 (2.5-4.0) gm/dl Albumin/Globulin Ratio 1.0 (0.9-2) Imaging Data Radiologist's Impression: XR chest 2V PA/lateral HISTORY: Atypical chest pain, hx CF with lung transplant COMPARISON: Chest 07/03/2016. FINDINGS: Postoperative changes consistent with prior bilateral lung transplant. No pleural effusions. No pneumothorax. The heart is normal in size. There is a right Port-A-Cath which terminates in the SVC. Mild interstitial thickening at the lingula and right middle lobe. This has improved in the interval. IMPRESSION: Mild interstitial thickening at the lingula and right middle lobe. This has improved in the interval. Therefore, this could be chronic or represent a mild pneumonitis. ACT 112: Negative or not required by law. Electronically signed by: Jax Ortiz M.D. 10/04/2019 9:25 AM Blood Pressure Additional Comments: EKG was obtained on arrival and reveals sinus bradycardia at a rate of 58 bpm. No evidence of ND on this examination. QTc 406. QRS 92. MDM Narrative Patient was seen and evaluated as above in room A04. Review was performed of nursing notes and vital signs. I did review pertinent previous visits and patient history. After obtaining a thorough history and physical examination the above work up was performed. He presents to us today status post lung transplantation a few years ago in [place] in the setting of cystic fibrosis now with chest pain that has been occurring while he is working in a [employer] shop. He initially thought this could be related to being exposed to flour but the pain is now persistent and is not subsiding as it had previously. On arrival the patient does have stable vital signs. He appears toxic and is not showing any increased work of breathing. No leukocytosis. Mild decrease in hemoglobin at 11.1. This was compared to previous and is similar. There is hyponatremia at 128. Which is new compared to lab work performed about 9 days ago. Mild hypokalemia as well. There is elevation of patient's BUN and creatinine which are quite significant. I will note that the creatinine is similar to testing performed about 9 days ago but this is quite a bit higher than his baseline. T bili 2.1. This is also higher than previous. Troponin is negative. An EKG was obtained on arrival and reveals sinus bradycardia at a rate of 58 bpm. No evidence of ND on this examination. QTc 406. QRS 92. Chest x-ray as above. Given the patient's hyponatremia, acute on chronic KRISTI, and chest pain given the underlying history of CF with lung transplant I do believe that further evaluation and management would be warranted in the inpatient setting. He was hydrated with fluids here and given antiemetics and analgesics. Options of care were discussed with the patient and he is in agreement with inpatient management. Case discussed with the hospitalist. Please refer to further documentation regarding his stay. Case was discussed with the attending physician. GCS: 15 In the evaluation and treatment of this patient, the following differential diagnoses were considered: ND, ASC, Dysrhythmia, Angina, Mediastinitis, GERD, Esophagitis, PE, Pneumonia, Bronchitis, Costochondritis, Rib Fracture, Zoster. Impression & Plan Hyponatremia, Acute on chronic renal failure, Lung replaced by transplant, Hypokalemia Discharge Plan Visit Data *Final* Discharge Date/Time: 10/04/19 12:47 Chief Complaint: Cardiac Assessment Stated Complaint: CHEST PAINS - DEHYDRATED,CRAMPING ED Provider: Lucio Robles ED Midlevel Provider: Dickson Dill Discharge Problem: Hyponatremia, Acute on chronic renal failure, Lung replaced by transplant, Hypokalemia Patient Disposition: Admitted As Inpatient Condition: Good Discharge Instructions Interventions: ED Discharge Assessment Last Done: 10/04/19 12:47
[2019-10-04] MEDS ORDERED: SODIUM CHLORIDE 0.9% 500 ML IV ONE (07:52)
[2019-10-04 08:13] LABS: Basophils # (auto) 0.01 K/uL (0-0.2); Basophils % (auto) 0.1 %; Eosinophils # (auto) 0.13 K/uL (0-0.5); Eosinophils % (auto) 1.7 %; Hematocrit (blood only) 30.9 % (42-52); Hemoglobin 11.1 g/dL (14.0-18.0); Immature Granulocytes # (auto) 0.06 K/uL (0.00-0.02); Immature Granulocytes % (auto) 0.8 %; Lymphocytes # (auto) 3.42 K/uL (1.2-3.4); Lymphocytes % (auto) 44.2 %; Mean Corpuscular Hemoglobin 28.8 pg (25-34); Mean Corpuscular Hgb Conc 35.9 g/dL (32-36); Mean Corpuscular Volume 80.3 fL (80-100); Mean Platelet Volume 9.1 fL (7.4-10.4); Monocytes # (auto) 0.27 K/uL (0.11-0.59); Monocytes % (auto) 3.5 %; Neutrophils # (auto) 3.84 K/uL (1.4-6.5); Neutrophils % (auto) 49.7 %; Platelet Count 204 K/uL (130-400); RDW Coefficient of Variation 12.5 % (11.5-14.5); RDW Standard Deviation 36.8 fL (36.4-46.3); Red Blood Count 3.85 M/uL (4.7-6.1); White Blood Count 7.73 K/uL (4.8-10.8)
[2019-10-04 08:23] LABS: Partial Thromboplastin Time 27.6 Seconds (21.0-31.0); Prothrombin Time 10.3 Seconds (9.0-12.0)
[2019-10-04 08:33] LABS: Alanine Aminotransferase 31 U/L (12-78); Albumin Level 3.7 gm/dl (3.4-5.0); Aspartate Aminotransferase 27 U/L (15-37); BUN Creatinine Ratio 11.5 (10-20); Blood Urea Nitrogen 42 mg/dl (7-18); Carbon Dioxide 24 mmol/L (21-32); Chloride 94 mmol/L (98-107); Creatinine Clr Calc Pharmacy 23.8 ml/min; Est GFR (African American) 23.4; Est GFR (Non-African American) 20.1; Glucose 97 mg/dl (70-99); Magnesium 1.9 mg/dl (1.8-2.4); Potassium 3.3 mmol/L (3.5-5.1); Sodium 128 mmol/L (136-145)
[2019-10-04 08:38] LABS: Alkaline Phosphatase 126 U/L (45-117); Bilirubin,Total 2.1 mg/dl (0.2-1); Globulin 3.6 gm/dl (2.5-4.0); Total Protein 7.3 gm/dl (6.4-8.2); Troponin I < 0.015 ng/ml (0-0.045)
--- NOTE | 2019-10-04 08:41 | Electrocardiogram Report ---
Test Reason : Blood Pressure : / mmHG Vent. Rate : 058 BPM Atrial Rate : 058 BPM P-R Int : 150 ms QRS Dur : 092 ms QT Int : 414 ms P-R-T Axes : 073 043 057 degrees QTc Int : 406 ms Sinus bradycardia Otherwise normal ECG When compared with ECG of 10-AUG-2018 22:46, No significant change was found Confirmed by Vicente Funez ([id number]) on 10/04/2019 8:40:58 AM Referred By: REFERRED SELF Confirmed By:Vicente Funez
--- NOTE | 2019-10-04 09:26 | XRay Report ---
XR chest 2V PA/lateral HISTORY: Atypical chest pain, hx CF with lung transplant COMPARISON: Chest 07/03/2016. FINDINGS: Postoperative changes consistent with prior bilateral lung transplant. No pleural effusions . No pneumothorax. The heart is normal in size. There is a right Port-A-Cath which terminates in the SVC. Mild interstitial thickening at the lingula and right middle lobe. This has improved in the inte rval. IMPRESSION: Mild interstitial thickening at the lingula and right middle lobe. This has improved in the interval. Therefore, this could be chronic or represent a mild pneumonitis. ACT 112: Negative or not required by law. Electronically signed by: Jax Ortiz M.D. 10/04/2019 9:25 AM
[2019-10-04] MEDS ORDERED: POTASSIUM CHLORIDE 20 MEQ TABCR PO STA (12:03)
[2019-10-04] MEDS ORDERED: PHARMACY GLYCEMIC MGMT CONSULT STA (12:04)
[2019-10-04] MEDS ORDERED: SODIUM CHLORIDE 0.9% 1000ML 1,000 ML IV SCH (12:15)
--- NOTE | 2019-10-04 13:20 | History & Physical Report ---
Date of Service October 04, 2019 Assessment & Plan (1) Chest pain: (2) GERD (gastroesophageal reflux disease): (3) Cystic fibrosis: (4) Lung replaced by transplant: Patient with burning chest pain on admission. EKG showed no acute findings. Troponin was negative. 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 He overall has been doing well with his transplant recently. He has regular PFTs to monitor for signs of rejection- these have been stable. Follows with [facility] Transplant service. Dr. Treadwell did speak with them. No need to transfer at this time. Consider transfer if patient decompensates or does not improve. Patient does have history of severe GERD as well- expected to have fundoplication in the future. Bilirubin mildly elevated on presentation with slightly elevated Alk Phos. Continue Esomeprazole BID Continue pancreatic enzymes from home meds for CF Check RUQ US Repeat CMP, direct Bili in AM Continue current doses of antirejection medications per transplant team Patient is on PO Azithromycin and PO Bactrim for prophylactic purposes on MWF. Continue these. Discussed with pharmacy- confirmed that current doses are OK with creatinine clearance Monitor symptoms for changes. Will check tacrolimus level in the AM as recommended by transplant. (5) CKD (chronic kidney disease), stage III: (6) Acute on chronic renal failure: Patient with CKD 2-3 as outpatient. Most recently appears that baseline creatinine is around 1.7-1.9. Creatinine now 3.65. Transplant recommended hydration and monitoring. Continue same doses of tacrolimus and everolimus NSS 100 ml/hr x 1 Recheck BMP this evening and again in AM Consult Nephro to follow along & help with any recs (7) Hyponatremia: Sodium 128 on admission. NSS as above. Recheck this evening. Monitor (8) Hypokalemia: Potassium 3.3. Given PO Potassium 20 mEq x 1 dose. 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 (12) DVT prophylaxis: Heparin renally dosed History of Present Illness Chief Complaint: Chest Pain Primary Care Provider: Enrique Toscano MD Patient is a 34 yo male with history of double lung transplant for cystic fibrosis in 02/2016 by [facility]. The patient presented to the ED with concern of burning chest pain and muscle cramping. The patient has been working a lot recently, and he notes that the burning chest pain started a few days ago. It initially went away, but when it started last night, it didnt go away. He admits that he doesnt drink enough water. He drinks maybe 3-4 glasses per day. He otherwise has been in good health. He has been golfing on a regular basis without problems. The patient reports no cough, sputum production, ROLLE, lightheadedness/dizziness, SOB, radiating chest pain, N/V/D/C, or peripheral edema. He continues to follow regularly with [facility] Transplant in [place]. He was last seen on 07/23/19 for follow up. The patient does have PFTs regularly to monitor for early signs of rejection. He most recently [place] [facility] Dr. Ledezma on 09/22/19 which were within normal. The patient traditionally ranges between CKD2-3 per his Transplant teams notes and has a baseline creatinine around 1. More recently, from review of his records, it appears that his baseline ranges from 1.7-1.9. He had outpatient labs completed on 09/25/19 which showed creatinine of 3.72. He states that his tacrolimus was adjusted and he was told to drink more water. Since presentation to the ED, he is noted to have lab abnormalities including elevated creatinine to 3.65, hyponatremia of 128, hypokalemia of 3.3, elevated bilirubin to 2.1, mildly elevated Alk Phos of 126, and slightly worsening anemia with Hgb of 11.1. BP upon initial presentation was elevated to 150/89 but now is 134/91. EKG showed sinus bradycardia with HR 58 BPM. Chest X-Ray showed mild interstitial thickening at the lingual and RML. Noted that this could be chronic or mild pneumonitis. Dr. Treadwell discussed patient with [facility] Transplant team- recommended hydration and continuing antirejection medications at current doses. If status worsens, may require transfer to [facility]. Allergies Allergy/AdvReac Type Severity Reaction Status Date / Time vancomycin Allergy Intermediate RED MAN Unverified 10/04/19 09:50 SYNDROME clavulanic acid Allergy Unknown allergy Unverified 10/04/19 09:50 betalactamase inhibitor Penicillins Allergy Unknown . Unverified 10/04/19 09:50 Home Medications Home Medications Medication Instructions Recorded Confirmed Type albuterol sulfate [Ventolin HFA] 2 puff INHALATION Q4H PRN 08/10/18 10/04/19 History cholecalciferol (vitamin D3) 4,000 unit PO QDL 08/10/18 10/04/19 History [Vitamin D3] ferrous sulfate 325 mg PO BIDM 08/10/18 10/04/19 History fexofenadine [Radha Allergy] 180 mg PO QAM 08/10/18 10/04/19 History flwyxs-[id number]-iktjwqa [Zenpep] 6 cap PO TIDM 08/10/18 10/04/19 History magnesium 250 mg PO BID 08/10/18 10/04/19 History metoprolol tartrate 50 mg PO BID 08/10/18 10/04/19 History prednisone 5 mg PO QAM 08/10/18 10/04/19 History sulfamethoxazole-trimethoprim 0.5 tab PO 3XWK 08/10/18 10/04/19 History tacrolimus 2 mg PO BID 08/10/18 10/04/19 History valganciclovir 450 mg PO DAILY 08/10/18 10/04/19 History Novolog U-100 Insulin aspart 100 See Rx Instructions CONTINUOUS 04/23/19 10/04/19 Rx unit/mL subcutaneous solution SUBCUTANEOUS INFUSION UD #30 ml NS azithromycin 250 mg PO USEASDIRECTD 10/04/19 10/04/19 History esomeprazole magnesium 40 mg PO BID 10/04/19 10/04/19 History everolimus (immunosuppressive) 1.5 mg PO BID 10/04/19 10/04/19 History [Zortress] Past Med/Surg History Medical History CKD (chronic kidney disease), stage III Cystic fibrosis (Chronic 11/28/12) Diabetes 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 GERD (gastroesophageal reflux disease) H/O testicular biopsy Insulin dependent diabetes mellitus Surgical History H/O inguinal hernia repair Lung transplanted Social History Preferred Language: Malawian Communication Ability: Effective Clinical Immunologist Required: No Beliefs That Will Affect Care: None Current Living Situation: Other Current Living Situation Comment: friend Other Information That Helps Us Care for You: No Feels Safe at Home: Yes Safety Concerns: Feels Safe At This Time Smoking Status: Never smoker Hx Alcohol Use: Yes Alcohol type: beer Hx Substance Use: No Review of Systems Review of Systems: All systems reviewed & are unremarkable except as noted in HPI & below Physical Exam Constitutional: WD/WN, vitals as above Eyes: PERRL, conjunctivae normal, anicteric sclerae ENMT: external ear and nose normal, oropharynx normal Neck: trachea midline, no thyromegaly Respiratory: normal respiratory effort, lungs clear to auscultation Cardiovascular: RRR, no murmur, no edema Extremities: no edema Gastrointestinal (Abdomen): Inspection/Auscultation: abdomen normal to inspection and normal bowel sounds; abdomen not distended Percussion/Palpation: + abdomen tender (Mild mid-epigastric tenderness) Musculoskeletal: Head/Neck/Chest: normocephalic, head atraumatic and neck supple Extremities: extremities normal to inspection; no cyanosis Skin: no rashes, warm and dry Psychiatric: A+Ox3, euthymic affect Results & Data Results & Data ([facility]) Vital Signs (Past 12 Hours) Vital Signs Temp Pulse Pulse Resp BP BP Pulse Ox 10/04/19 12:31 73 23 98 10/04/19 12:30 73 14 135/94 95 10/04/19 12:20 65 14 95 10/04/19 12:10 66 15 97 10/04/19 12:01 69 16 99 10/04/19 12:00 73 13 136/92 99 10/04/19 11:50 58 L 17 97 10/04/19 11:40 59 L 11 L 95 10/04/19 11:31 58 L 99 10/04/19 11:30 58 L 10 L 146/93 H 99 10/04/19 11:29 71 73 15 134/88 146/93 H 98 10/04/19 11:20 63 18 10/04/19 11:10 63 16 10/04/19 11:00 74 16 10/04/19 10:50 63 14 10/04/19 10:40 67 12 10/04/19 10:30 63 12 10/04/19 10:20 68 17 10/04/19 10:10 60 13 10/04/19 10:00 65 14 07/19/20 09:50 61 14 10/04/19 09:40 68 13 10/04/19 09:30 68 15 10/04/19 09:20 71 13 10/04/19 09:18 71 24 10/04/19 08:40 68 16 97 10/04/19 08:31 76 15 97 10/04/19 08:30 68 18 134/91 97 10/04/19 08:20 77 15 98 10/04/19 08:10 62 18 100 10/04/19 08:01 60 13 100 10/04/19 08:00 60 18 147/93 H 100 10/04/19 07:50 66 14 99 10/04/19 07:40 59 L 16 100 10/04/19 07:33 62 22 93 10/04/19 07:31 61 16 99 10/04/19 07:30 99 10/04/19 07:20 36.9 C 66 20 150/89 H 97 Laboratory Results Laboratory Results - last 24 hr 10/04/19 10/04/19 10/04/19 07:59 07:59 07:59 WBC 7.73 RBC 3.85 L Hgb 11.1 L Hct 30.9 L MCV 80.3 MCH 28.8 MCHC 35.9 RDW Std Deviation 36.8 RDW Coeff of Adrianna 12.5 Plt Count 204 MPV 9.1 Immature Gran % (Auto) 0.8 Neut % (Auto) 49.7 Lymph % (Auto) 44.2 [place] % (Auto) 3.5 Eos % (Auto) 1.7 Baso % (Auto) 0.1 Neut # (Auto) 3.84 Lymph # (Auto) 3.42 H [place] # (Auto) 0.27 Eos # (Auto) 0.13 Baso # (Auto) 0.01 Immature Gran # (Auto) 0.06 H PT 10.3 INR 1.0 APTT 27.6 PTT Ratio 1.0 Sodium 128 L Potassium 3.3 L Chloride 94 L Carbon Dioxide 24 Anion Gap 10.0 BUN 42 H Creatinine 3.65 H Est Cr Clr Drug Dosing 23.8 Est GFR ( Amer) 23.4 Est GFR (Non-Af Amer) 20.1 BUN/Creatinine Ratio 11.5 Glucose 97 Calcium 9.0 Magnesium 1.9 Total Bilirubin 2.1 H AST 27 ALT 31 Alkaline Phosphatase 126 H Troponin I < 0.015 Total Protein 7.3 Albumin 3.7 Globulin 3.6 Albumin/Globulin Ratio 1.0 Diagnostic Findings CXR: IMPRESSION: Mild interstitial thickening at the lingula and right middle lobe. This has improved in the interval. Therefore, this could be chronic or represent a mild pneumonitis Code Status & VTE Plan VTE Prophylaxis Plan VTE Prophylaxis will be ordered: Yes Supervising Physician Co-Signing Physician Notes Pt was seen and examined. Agreed with with Verenice HINDS exam, assessment and plan. 34 yo male with Diabetes type 1, CKD stage 3, history of double lung transplant for cystic fibrosis in 02/2016 by [facility] presented to the ED with burning sensation in his chest and muscle cramping. Pt said that he feels his lung feels with water and burn. He said that he was seen on 09/24 at the pulmonary transplant clinic and his Tacrolimus was decreased because of the elevation in his creatinine of 3.7. He denies any cough, fever, SOB and any exposure to anyone tested positive for COVID 19. On exam, lungs clear to auscultation, regular heart rate, NO edema in LE. CXR in the ER showed mild interstitial thickening at the lingula and right middle lobe. This has improved in the interval. Creatinine 3.65 and sodium 128 on admission. Received IVF in the ER, and will continue IVF for now. Case discussed with Lung transplant team Dr. Lawson (cell number [phone]) that recommended to continue current dose of the Tacrolimus 2mg BID since it was decrease recently and Everolimus 1.5mg BID. Check tacrolimus level in am. If patient worsening, consider to transfer to [facility]. Few minutes later Dr. Pan (cell [phone]) from the transplant team called (since they called was placed to answering service ) and requested to update him on the patient tomorrow. Will check BMP to monitor electrolytes and renal function. MD Eben
[2019-10-04] MEDS ORDERED: GLUCOSE 40% GEL 15 GM TUBE PO PRN (13:31)
[2019-10-04] MEDS ORDERED: POLYETHYLENE (MIRALAX) 17 GM PACK PO PRN (13:31)
[2019-10-04] MEDS ORDERED: ACETAMINOPHEN 325 MG TAB PO PRN (13:31)
[2019-10-04] MEDS ORDERED: ONDANSETRON INJ 2 MG/ML 2 ML VIAL IV PRN (13:31)
[2019-10-04] MEDS ORDERED: DEXTROSE 50% 50 ML SYRINGE IV PRN (13:31)
[2019-10-04] MEDS ORDERED: GLUCAGON FOR INJ 1 MG VIAL SQ PRN (13:31)
[2019-10-04] MEDS ORDERED: GLUCOSE 10 TABS/TUBE PO PRN (13:31)
[2019-10-04] MEDS ORDERED: CARBOHYDRATES FOR HYPOGLYCEMIA PO PRN (13:31)
[2019-10-04] MEDS ORDERED: PHARMACY GLYCEMIC MGMT CONSULT PRN (13:39)
[2019-10-04] MEDS ORDERED: PROMETHAZINE HCL 12.5 MG in SODIUM CHLORIDE 0.9% 50 ML IV ONE (14:15)
[2019-10-04] MEDS ORDERED: INSULIN ASPART 100 UNITS/ML VIAL SC PRN (14:15)
--- NOTE | 2019-10-04 14:19 | Pharmacy Report ---
Glycemic Control Consultation - Date of Service October 04, 2019 - Scope Scope: Glycemic Pharmacist consulted for glycemic control and to write orders per [facility] inpatient glycemic control protocol. - Objective Weight: 60.1 kg Accuchecks BSG (last 24hrs): 10/04/19 10/04/19 07:59 14:05 Glucose 97 POC Glucose 133 H Laboratory Data (last 24hrs): 10/04/19 07:59 Potassium 3.3 L Carbon Dioxide 24 Anion Gap 10.0 Creatinine 3.65 H Est Cr Clr Drug Dosing 23.8 - Recent Pertinent Medications Outpatient Anti-diabetic Regimen: * Novolog pump 1.26 units/hr basal rate ; CF of 35 ; CR of 4 * A1c = 8.0 % 04/30/19 - Assessment & Plan Assessment & Plan: ASSESSMENT: * 34 year old with PMHx of double lung transplant for cystic fibrosis. Presenting to ED with chest pain/muscle cramping. Also with CKD stage 2-3 * Type 1 diabetic managed on insulin pump at home and continued on admission. Spoke with patient and he is okay with managing his pump while in the hospital. He states he follows [facility], but its been >8 months since seen in their office. Denies any recent hypoglycemia. * Did review insulin pump settings with patient over the phone. Patient had to access his pump to check settings. Repeated settings back to him to ensure correct. * Patient does have some nausea today, so he did briefly pause pump. He feels comfortable with adjusting basal/settings if needed. Told him we would follow in the background and watch his BSGs and if he were to have questions/concerns or feels uncomfortable with managing pump at any time to let us know. Patient agreed. States he is having someone bring in some extra pump supplies if needed tomorrow. PLAN FOR INPATIENT GLYCEMIC CONTROL: * Continue insulin pump / will monitor * Please note that the plan above was derived based on current level of insulin resistance and hospital stress. These recommendations are appropriate for inpatient admission only. Plan of care upon discharge will need to be reassessed to avoid potential outpatient hypo/hyperglycemia. Thank you.
[2019-10-04] MEDS: FERROUS SULFATE 325 MG TAB PO SCH (15:42)
[2019-10-04] MEDS: NovoLOG INSULIN PUMP SCH ×2 (16:21→20:51)
--- NOTE | 2019-10-04 18:31 | Ultrasound Report ---
ABDOMINAL ULTRASOUND, RIGHT UPPER QUADRANT HISTORY: Elevated bilirubin Alk Phos, burning chest pain. COMPARISON: Abdomen and pelvis CT 08/10/2018. FINDINGS: Pancreas: The pancreatic tail is obscured by overlying bowel gas. The remaining portions of the pancr eas are within normal limits. Liver: Unremarkable. Gallbladder: The gallbladder is filled with sludge and stones. No significant gallbladder wall thicke marly. No pericholecystic fluid. Negative sonographic Adrian sign. CBD: 4 mm. Right kidney: No hydronephrosis. IMPRESSION: 1. The gallbladder is filled with sludge and stones. No gallbladder wall thickening. Negative sonogra phic Adrian sign. 2. Normal caliber common bile duct. ACT 112: Negative or not required by law. Electronically signed by: Jax Ortiz M.D. 10/04/2019 6:30 PM
[2019-10-04] MEDS: ZENPEP PO SCH (18:43)
[2019-10-04] MEDS: TACROLIMUS 1 MG CAP PO SCH (18:49)
[2019-10-04 19:23] LABS: BUN Creatinine Ratio 11.9 (10-20); Calcium 8.5 mg/dl (8.5-10.1); Creatinine Clr Calc Pharmacy 27.7 ml/min; Est GFR (African American) 28.1; Est GFR (Non-African American) 24.3; Potassium 4.1 mmol/L (3.5-5.1)
--- NOTE | 2019-10-04 19:56 | Surgery Consultation ---
Date of Consultation October 04, 2019 Assessment & Plan (1) Chest pain: Chest pain in 34 yr old man with lung transplant. Unclear if this is due to gallbladder as has no abdominal symptoms. Would check HIDA scan to look for acute cholecystitis. If HIDA shows acute cholecystitis, will need lap ch olecystectomy. Would recommend discussing with [facility] transplant if they would prefer to do surgery there vs here. If HIDA negative, OK to advance diet. Discussed that he should review recent findings with transplant team to see if elective lap sheila is warranted given his immunosuppression. Present on Admission?: Yes (2) Lung replaced by transplant: follows with [facility] transplant History of Present Illness Reason for Consultation: chest pain and gallstones Requesting Physician: Miguel Treadwell MD Attending Physician: Miguel Treadwell MD History of Present Illness 34 yr old man with lung transplant secondary to cystic fibrosis, followed by [facility] transplant clinic, presents to ED with mid chest burning pain. 8/10 in severity, no abdominal symptoms, no nausea/ vomiting. Started acutely after he felt dehydrated, had been working very hard (three jobs), had been working in a hot environment ([employer]). No change in bowel habits. Was eating normally prior to this with no postprandial symptoms. Hungry now. Pain is down to 5/10 with medication, rest. In ER, RUQ US showed gallstones. LFT's normal except for bilirubin elevation to 2.1. Allergies Allergy/AdvReac Type Severity Reaction Status Date / Time vancomycin Allergy Intermediate RED MAN Unverified 10/04/19 09:50 SYNDROME clavulanic acid Allergy Unknown allergy Unverified 10/04/19 09:50 betalactamase inhibitor Penicillins Allergy Unknown . Unverified 10/04/19 09:50 Home Medications Home Medications Medication Instructions Recorded Confirmed Type albuterol sulfate [Ventolin HFA] 2 puff INHALATION Q4H PRN 08/10/18 10/04/19 History cholecalciferol (vitamin D3) 4,000 unit PO QDL 08/10/18 10/04/19 History [Vitamin D3] ferrous sulfate 325 mg PO BIDM 08/10/18 10/04/19 History fexofenadine [Radha Allergy] 180 mg PO QAM 08/10/18 10/04/19 History zyilwq-djgpgnnl-mupaxwb [Zenpep] 6 cap PO TIDM 08/10/18 10/04/19 History magnesium 250 mg PO BID 08/10/18 10/04/19 History metoprolol tartrate 50 mg PO BID 08/10/18 10/04/19 History prednisone 5 mg PO QAM 08/10/18 10/04/19 History sulfamethoxazole-trimethoprim 0.5 tab PO 3XWK 08/10/18 10/04/19 History tacrolimus 2 mg PO BID 08/10/18 10/04/19 History valganciclovir 450 mg PO DAILY 08/10/18 10/04/19 History Novolog U-100 Insulin aspart 100 See Rx Instructions CONTINUOUS 04/23/19 10/04/19 Rx unit/mL subcutaneous solution SUBCUTANEOUS INFUSION UD #30 ml NS azithromycin 250 mg PO USEASDIRECTD 10/04/19 10/04/19 History esomeprazole magnesium 40 mg PO BID 10/04/19 10/04/19 History everolimus (immunosuppressive) 1.5 mg PO BID 10/04/19 10/04/19 History [Zortress] Patient History Medical History CKD (chronic kidney disease), stage III Cystic fibrosis (Chronic 11/28/12) Diabetes 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 GERD (gastroesophageal reflux disease) H/O testicular biopsy Insulin dependent diabetes mellitus Surgical History H/O inguinal hernia repair Lung transplanted Social History Preferred Language: Azeri Communication Ability: Effective Facility Specialist Required: No Beliefs That Will Affect Care: None Current Living Situation: Other Current Living Situation Comment: friend Other Information That Helps Us Care for You: No Feels Safe at Home: Yes Safety Concerns: Feels Safe At This Time Smoking Status: Never smoker Hx Alcohol Use: Yes Alcohol type: beer Hx Substance Use: No Review of Systems Review of Systems: All systems reviewed & are unremarkable except as noted in HPI & below tacrolimus level decreased recently due to elevation in Cr Physical Exam Constitutional: WD/WN, vitals as above Eyes: PERRL, conjunctivae normal, anicteric sclerae Respiratory: normal respiratory effort, lungs clear to auscultation Cardiovascular: RRR, no murmur, no edema Gastrointestinal (Abdomen): normal bowel sounds, soft, nontender, no hepatosplenomegaly no Adrian's sign Neurologic: moves all extremities; no focal motor deficits Psychiatric: Orientation: alert and oriented x 3 Results & Data Vital Signs (Past 12 Hours) Vital Signs Temp Pulse Pulse Resp BP BP Pulse Ox 10/04/19 19:11 36.7 C 66 18 141/89 H 100 10/04/19 15:15 36.5 C 63 18 152/88 H 100 10/04/19 13:30 36.5 C 64 18 151/87 H 99 10/04/19 12:31 73 23 98 10/04/19 12:30 73 14 135/94 95 10/04/19 12:20 65 14 95 10/04/19 12:10 66 15 97 10/04/19 12:01 69 16 99 10/04/19 12:00 73 13 136/92 99 10/04/19 11:50 58 L 17 97 10/04/19 11:40 59 L 11 L 95 10/04/19 11:31 58 L 99 10/04/19 11:30 58 L 10 L 146/93 H 99 10/04/19 11:29 71 73 15 134/88 146/93 H 98 10/04/19 11:20 63 18 10/04/19 11:10 63 16 10/04/19 11:00 74 16 10/04/19 10:50 63 14 10/04/19 10:40 67 12 10/04/19 10:30 63 12 10/04/19 10:20 68 17 10/04/19 10:10 60 13 10/04/19 10:00 65 14 10/04/19 09:50 61 14 10/04/19 09:40 68 13 10/04/19 09:30 68 15 10/04/19 09:20 71 13 10/04/19 09:18 71 24 10/04/19 08:40 68 16 97 10/04/19 08:31 76 15 97 10/04/19 08:30 68 18 134/91 97 10/04/19 08:20 77 15 98 10/04/19 08:10 62 18 100 10/04/19 08:01 60 13 100 10/04/19 08:00 60 18 147/93 H 100 Laboratory Results T. bili 2.1 alk phos elevated ast/ alt normal wbc count normal BUN/ Cr elevated Diagnostic Findings [place], [place] [phone] Ultrasound Report Patient: KENNEDI ROBERTSON Date: 10/04/19 MR#: [id number]: [address] Acct ID:[id number]: Date: 1985[place]: [place] [address] Age: 34Location: 2S Sex: M Room/Bed: [facility] Att Phy: Miguel Treadwell M.D.Diagnosis: CHEST PAIN Lola Phy: Enrique Toscano MDService Date: 10/04/19 Fam Phy:Interpreting Phy: Jax Ortiz MD Admit Phy: Miguel Treadwell M.D. Ordering Phy: Tara Sethi PA-C cc: ~ ABDOMINAL ULTRASOUND, RIGHT UPPER QUADRANT HISTORY: Elevated bilirubin Alk Phos, burning chest pain. COMPARISON: Abdomen and pelvis CT 08/10/2018. FINDINGS: Pancreas: The pancreatic tail is obscured by overlying bowel gas. The remaining portions of the pancreas are within normal limits. Liver: Unremarkable. Gallbladder: The gallbladder is filled with sludge and stones. No significant gallbladder wall thickening. No pericholecystic fluid. Negative sonographic Adrian sign. CBD: 4 mm. Right kidney: No hydronephrosis. IMPRESSION: 1. The gallbladder is filled with sludge and stones. No gallbladder wall thickening. Negative sonographic Adrian sign. 2. Normal caliber common bile duct.
[2019-10-04] MEDS: MAGNESIUM OXIDE 400 MG TAB PO SCH (20:33)
[2019-10-04] MEDS: METOPROLOL TARTRATE 50 MG TAB PO SCH (20:34)
[2019-10-04] MEDS: PANTOprazole 40 MG TAB PO SCH (20:38)
[2019-10-04] MEDS: ZORTRESS 0.5 MG PO SCH (20:50)
[2019-10-04] MEDS ORDERED: HEPARIN SOD 5,000 UNIT/0.5 ML VIAL SQ SCH (21:00)
[2019-10-04] MEDS ORDERED: TACROLIMUS 1 MG CAP PO SCH (21:00)
[2019-10-05 01:33] LABS: Basophils # (auto) 0.01 K/uL (0-0.2); Basophils % (auto) 0.2 %; Eosinophils # (auto) 0.08 K/uL (0-0.5); Eosinophils % (auto) 1.5 %; Hematocrit (blood only) 32.1 % (42-52); Hemoglobin 11.3 g/dL (14.0-18.0); Immature Granulocytes # (auto) 0.03 K/uL (0.00-0.02); Immature Granulocytes % (auto) 0.6 %; Lymphocytes # (auto) 2.21 K/uL (1.2-3.4); Lymphocytes % (auto) 41.5 %; Mean Corpuscular Hemoglobin 28.9 pg (25-34); Mean Corpuscular Hgb Conc 35.2 g/dL (32-36); Mean Corpuscular Volume 82.1 fL (80-100); Mean Platelet Volume 9.3 fL (7.4-10.4); Monocytes # (auto) 0.15 K/uL (0.11-0.59); Monocytes % (auto) 2.8 %; Neutrophils # (auto) 2.84 K/uL (1.4-6.5); Neutrophils % (auto) 53.4 %; Platelet Count 207 K/uL (130-400); RDW Coefficient of Variation 12.8 % (11.5-14.5); RDW Standard Deviation 37.9 fL (36.4-46.3); Red Blood Count 3.91 M/uL (4.7-6.1); White Blood Count 5.32 K/uL (4.8-10.8)
[2019-10-05 01:53] LABS: Albumin Level 3.1 gm/dl (3.4-5.0); BUN Creatinine Ratio 12.8 (10-20); Calcium 8.4 mg/dl (8.5-10.1); Creatinine Clr Calc Pharmacy 28.4 ml/min; Est GFR (African American) 28.9; Est GFR (Non-African American) 24.9; Magnesium 1.8 mg/dl (1.8-2.4)
[2019-10-05 01:57] LABS: Albumin Globulin Ratio 0.8 (0.9-2); Globulin 3.7 gm/dl (2.5-4.0); Total Protein 6.8 gm/dl (6.4-8.2)
[2019-10-05] MEDS ORDERED: D5W AND NSS 1,000 ML IV SCH (02:00)
[2019-10-05] MEDS: LACTATED RINGER'S 1,000 ML IV SCH ×2 (02:20→15:45)
[2019-10-05] MEDS: TACROLIMUS 1 MG CAP PO SCH ×2 (06:05→20:32)
[2019-10-05] MEDS: FEXOFENADINE HCL 180 MG TAB PO SCH (08:10)
[2019-10-05] MEDS: PANTOprazole 40 MG TAB PO SCH ×2 (08:10→20:31)
[2019-10-05] MEDS: MAGNESIUM OXIDE 400 MG TAB PO SCH ×2 (08:10→20:29)
[2019-10-05] MEDS: FERROUS SULFATE 325 MG TAB PO SCH ×2 (08:11→17:00)
[2019-10-05] MEDS: VALGANCICLOVIR PO SCH (08:12)
[2019-10-05] MEDS: ZENPEP PO SCH ×3 (08:12→17:30)
[2019-10-05] MEDS: ZORTRESS 0.5 MG PO SCH ×2 (08:13→20:31)
[2019-10-05] MEDS: predniSONE 5 MG TAB PO SCH (08:13)
[2019-10-05] MEDS: METOPROLOL TARTRATE 50 MG TAB PO SCH ×2 (08:13→20:30)
[2019-10-05] MEDS: NovoLOG INSULIN PUMP SCH ×4 (08:16→20:56)
[2019-10-05] MEDS ORDERED: AZITHROMYCIN 250 MG TAB PO SCH (09:00)
[2019-10-05] MEDS ORDERED: SULFAMETHOXAZOLE/TRIMETHOPRIM DS 800/160MG TAB PO SCH (09:00)
[2019-10-05 09:16] LABS: Estimated Average Glucose 209 mg/dl; Hemoglobin A1C 8.9 % (4.5-5.6)
--- NOTE | 2019-10-05 11:36 | Nephrology Consultation ---
Date of Consultation October 05, 2019 Assessment & Plan (1) Acute on chronic renal failure: Patient with the acute kidney injury on CKD likely due to prerenal azotemia. Patient has a baseline creatinine of 1.8 likely in setting of calcineurin inhibitor toxicity. Admission creatinine was 3.7. Creatinine is downtrending with IV fluids to 3 today. -Increase rate of IV fluids to 100 mL/h -Daily BMP -Avoid nephrotoxins such as contrast unless lifesaving. (2) Hyponatremia: Due to hypovolemia. Sodium is improving with IV fluids to 135 today. Will monitor daily. (3) Lung replaced by transplant: Continue Prograf 2 mg twice daily and prednisone 5 mg daily. Prograf dose was recently reduced by the transplant center just few days before admission. We will follow-up on the Prograf levels. Target Prograf levels of 6-8. History of Present Illness Reason for Consultation: KRISTI on CKD Requesting Physician: Eben Rivera MD Attending Physician: Miguel Treadwell MD History of Present Illness This is a 35-year-old male with history of CKD stage III with baseline creatinine of 1.8 and double lung transplant for cystic fibrosis in 02/2016 by [facility] who was admitted on 10/04/2019 with burning chest pain and muscle cramping. The patient has been working a lot recently, and he notes that the burning chest pain started a few days ago. He now works 3 jobs to supplement his reduced hours due to COVID-19. He has been working in a position of and is always hot. He does not drink enough water. He denied any vomiting or diarrhea. Admission creatinine was 3.7 from a baseline of 1.8. He has received IV Ringer's lactate and creatinine is down to 3 today. His Prograf was recently reduced from 3 mg twice daily to 2 mg twice daily outpatient just prior to admission. This was in setting of finding of elevated creatinine of 3.7 and a high Prograf level of 11. He feels better today. He is epigastric pain has subsided. He also had a high total bilirubin on admission and is planned for HIDA scan after finding gallstones on ultrasound. No urinary symptoms. No NSAID use. No shortness of breath. No leg swelling. Allergies Allergy/AdvReac Type Severity Reaction Status Date / Time vancomycin Allergy Intermediate RED MAN Unverified 10/04/19 09:50 SYNDROME clavulanic acid Allergy Unknown allergy Unverified 10/04/19 09:50 betalactamase inhibitor Penicillins Allergy Unknown . Unverified 10/04/19 09:50 Home Medications Home Medications Medication Instructions Recorded Confirmed Type albuterol sulfate [Ventolin HFA] 2 puff INHALATION Q4H PRN 08/10/18 10/04/19 History cholecalciferol (vitamin D3) 4,000 unit PO QDL 08/10/18 10/04/19 History [Vitamin D3] ferrous sulfate 325 mg PO BIDM 08/10/18 10/04/19 History fexofenadine [Radha Allergy] 180 mg PO QAM 08/10/18 10/04/19 History phzcua-[id number]-gtungms [Zenpep] 6 cap PO TIDM 08/10/18 10/04/19 History magnesium 250 mg PO BID 08/10/18 10/04/19 History metoprolol tartrate 50 mg PO BID 08/10/18 10/04/19 History prednisone 5 mg PO QAM 08/10/18 10/04/19 History sulfamethoxazole-trimethoprim 0.5 tab PO 3XWK 08/10/18 10/04/19 History tacrolimus 2 mg PO BID 08/10/18 10/04/19 History valganciclovir 450 mg PO DAILY 08/10/18 10/04/19 History Novolog U-100 Insulin aspart 100 See Rx Instructions CONTINUOUS 04/23/19 10/04/19 Rx unit/mL subcutaneous solution SUBCUTANEOUS INFUSION UD #30 ml NS azithromycin 250 mg PO USEASDIRECTD 10/04/19 10/04/19 History esomeprazole magnesium 40 mg PO BID 10/04/19 10/04/19 History everolimus (immunosuppressive) 1.5 mg PO BID 10/04/19 10/04/19 History [Zortress] Patient History Medical History CKD (chronic kidney disease), stage III Cystic fibrosis (Chronic 11/28/12) Diabetes 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 GERD (gastroesophageal reflux disease) H/O testicular biopsy Insulin dependent diabetes mellitus Surgical History H/O inguinal hernia repair Lung transplanted Social History Preferred Language: Citizen Of [place] Communication Ability: Effective Towel Distributor Required: No Beliefs That Will Affect Care: None Current Living Situation: Other Current Living Situation Comment: friend Other Information That Helps Us Care for You: No Feels Safe at Home: Yes Safety Concerns: Feels Safe At This Time Smoking Status: Never smoker Hx Alcohol Use: Yes Alcohol type: beer Hx Substance Use: No Review of Systems Review of Systems: All systems reviewed & are unremarkable except as noted in HPI & below Physical Exam Physical Exam: General exam: Appears comfortable, no acute distress HEENT: Pupils are equal and reactive to light Neck: No JVD, neck is supple trachea is midline Respiratory system: Clear breath sounds bilaterally. Gastrointestinal: Abdomen is soft, non distended, non tender, bowel sounds are present CVS: Regular rate and rhythm. No murmurs, rubs or gallops Musculoskeletal: No joint or muscle tenderness Extremities: Non tender, no edema, peripheral pulses are present Neuro: Oriented, no tremors, no focal neurological deficits Skin: No rashes Results & Data Vital Signs (Past 12 Hours) Vital Signs Temp Pulse Resp BP Pulse Ox 10/05/19 08:06 36.9 C 80 16 104/64 97 10/05/19 04:00 36.7 C 79 17 106/66 94 10/04/19 23:36 36.7 C 83 17 106/66 96 Laboratory Results 10/05/19 00:59 10/05/19 10/05/19 00:59 00:59 WBC 5.32 RBC 3.91 L MCV 82.1 MCH 28.9 MCHC 35.2 RDW Std Deviation 37.9 RDW Coeff of Adrianna 12.8 Plt Count 207 MPV 9.3 Albumin 3.1 L
[2019-10-05] MEDS: CHOLECALCIFEROL 1,000 UNITS 25 MCG TAB PO SCH (11:43)
--- NOTE | 2019-10-05 13:37 | Hospitalist Progress Note ---
Date of Service October 05, 2019 Assessment & Plan (1) Burning chest pain: (2) GERD (gastroesophageal reflux disease): Present on admission with burning sensation in the chest Possible related to GERD EKG showed no acute findings. Troponin was negative. History of severe GERD as well- expected to have fundoplication in the future. 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 Has been doing well with his transplant and getting regular PFTs to monitor for signs of rejection- these have been stable. Case discussed with Lung transplant team Dr. Lawson (cell number [phone]) and Dr. Pan (cell [phone]) that recommended to continue current dose of the Tacrolimus 2mg BID since it was decrease recently and Everolimus 1.5mg BID. Consider transfer if patient decompensates or does not improve as per the transplant team Tacrolimus level pending Nephrology recommended Target Prograf levels of 6-8 Continue PO Azithromycin and PO Bactrim for prophylactic purposes on MWF. Will update the transplant team Dr. Pan later today (5) CKD (chronic kidney disease), stage III: (6) Acute on chronic renal failure: Patient with CKD 2-3 as outpatient. Most recently appears that baseline creatinine is around 1.7-1.9. Creatinine on admission 3.65. Received IVF Creatinine improved to 3.06 today Continue IVF Will avoid nephrotoxic agents Nephrology on board (7) Gallbladder sludge: Unclear if symptoms related to acute cholecystitis RUQ abdominal u/s showed gallbladder is filled with sludge and stones. No gallbladder wall thickening. Negative sonographic Adrian sign. Surgery on board to eval for cholecystectomy Plan to get HIDA scan today to r/o acute cholecystitis If HIDA scan positive, will talk to transplant team if they would prefer him to undergo Lap Chol surgery here or at [facility] HIDA scan showed no evidence for cystic duct obstruction. Spoke to transplant team Dr. Pan about if pt would need to get surgery done in the future for cholecystectomy, Dr. Pan recommended they would prefer he gets any surgical procedure done at [facility] that they can monitor him. Will resume his diet and advanced as tolerated (8) Hyponatremia: Sodium 128 on admission. Received IVF, Na Improved to 135 today Continue IVF Stable (9) Hypokalemia: Potassium 3.3. 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: (11) Insulin dependent diabetes mellitus: (12) Insulin pump in place: Pharmacy on board for glycemic management Continue monitor BS (13) DVT prophylaxis: Hold Heparin for now in case if pt will go for surgery Admission and Anticipated Discharge Date Admission Date: October 04, 2019 Subjective Pt was seen and examined Lying in bed with no distress Pt said that he feels ok He said that he does not have the burning sensation in his chest He said that he does not have any abdominal pain Denies any symptoms of cholecystitis Denies any chest pain, palpitation, dizziness and SOB Physical Exam Physical Exam: General- No acute distress Head- atraumatic Eyes- PERRL, EOMI, ENT- oropharynx clear Neck- supple, no JVD Lungs- clear to auscultation Heart- regular rhythm; no murmur Abdomen- normal bowel sounds, soft, nontender Extremities- no calf tenderness Neuro- alert, oriented x 3; PERRL, EOMI; no facial palsy; no dysarthria Skin- warm & dry Results & Data Results & Data ([facility]) Vital Signs (Past 12 Hours) Vital Signs Temp Pulse Resp BP Pulse Ox 10/05/19 11:34 37.0 C 76 16 98/52 L 96 10/05/19 08:06 36.9 C 80 16 104/64 97 10/05/19 04:00 36.7 C 79 17 106/66 94
--- NOTE | 2019-10-05 14:32 | Nuclear Medicine Report ---
NUCLEAR MEDICINE HEPATOBILIARY SCAN HISTORY: Right upper quadrant pain. Gallstones. COMPARISON: Abdomen and pelvis CT 08/10/2018. Abdominal ultrasound 10/04/2019. TECHNIQUE: Immediately following the intravenous administration of 5.4 mCi Tc-99m Choletec, dynamic a nterior abdominal imaging was performed. FINDINGS: Uniform hepatic tracer accumulation is shown. Prompt intrahepatic biliary excretion is seen. The gall bladder, common bile duct, and small bowel are all visualized by 22 minutes. Of note, there is a smal l amount of radiotracer seen within the gallbladder at 22 minutes. The radiotracer does not stay with in the gallbladder and this appears to approximately the 75 minute henry. However, since the radiotrac er is seen in the gallbladder prior to 60 minutes this would be consistent with the normal appearance of biliary excretion. IMPRESSION: 1. No evidence for cystic duct obstruction. ACT 112: Negative or not required by law. Electronically signed by: Jax Ortiz M.D. 10/05/2019 2:31 PM
--- NOTE | 2019-10-05 15:05 | Surgery Progress Note ---
Date of Service F/U gallstone, pt is doing better, no abdominal pain, no nausea, no vomiting, no fever, HIDA scan- normal, October 05, 2019 Assessment & Plan (1) Chest pain: Chest pain in 34 yr old man with lung transplant. Unclear if this is due to gallbladder as has no abdominal symptoms. Would check HIDA scan to look for acute cholecystitis. If HIDA shows acute cholecystitis, will need lap cholecystectomy. Would recommend discussing with [facility] transplant if they would prefer to do surgery there vs here. If HIDA negative, OK to advance diet. Discussed that he should review recent findings with transplant team to see if elective lap sheila is warranted given his immunosuppression. 10/05/2019 3:07PM HIDA scan - normal, no abdominal pain, no emergent indication for cholecystectomy, plan, Recommend f/U out -pt with [facility] surgeon for cholecystectomy, clear diet to advance diet, sign off today, please call with questions, Thanks, (2) Lung replaced by transplant: follows with [facility] transplant Supervising Physician Co-Signing Physician Notes Pt was seen and examined. Agreed with with Verenice HINDS exam, assessment and plan. 34 yo male with Diabetes type 1, CKD stage 3, history of double lung transplant for cystic fibrosis in 02/2016 by [facility] presented to the ED with burning sensation in his chest and muscle cramping. Pt said that he feels his lung feels with water and burn. He said that he was seen on 09/24 at the pulmonary transplant clinic and his Tacrolimus was decreased because of the elevation in his creatinine of 3.7. He denies any cough, fever, SOB and any exposure to anyone tested positive for COVID 19. On exam, lungs clear to auscultation, regular heart rate, NO edema in LE. CXR in the ER showed mild interstitial thickening at the lingula and right middle lobe. This has improved in the interval. Creatinine 3.65 and sodium 128 on admission. Received IVF in the ER, and will continue IVF for now. Case discussed with Lung transplant team Dr. Lawson (cell number [phone]) that recommended to continue current dose of the Tacrolimus 2mg BID since it was decrease recently and Everolimus 1.5mg BID. Check tacrolimus level in am. If patient worsening, consider to transfer to [facility]. Few minutes later Dr. Pan (cell [phone]) from the transplant team called (since they called was placed to answering service ) and requested to update him on the patient tomorrow. Will check BMP to monitor electrolytes and renal function. MD Eben Subjective Pt was seen and examined Lying in bed with no distress Pt said that he feels ok He said that he does not have the burning sensation in his chest He said that he does not have any abdominal pain Denies any symptoms of cholecystitis Denies any chest pain, palpitation, dizziness and SOB Physical Exam Constitutional: WD/WN, vitals as above well developed and well nourished Eyes: PERRL, conjunctivae normal, anicteric sclerae Neck: trachea midline, no thyromegaly Cardiovascular: RRR, no murmur, no edema Rate/Rhythm: regular rate and regular rhythm Gastrointestinal (Abdomen): Percussion/Palpation: abdomen soft NT, ND, BS + Neurologic: awake Psychiatric: Orientation: alert and oriented x 3 Results & Data Vital Signs (Past 12 Hours) Vital Signs Temp Pulse Resp BP Pulse Ox 10/05/19 11:34 37.0 C 76 16 98/52 L 96 10/05/19 08:06 36.9 C 80 16 104/64 97 10/05/19 04:00 36.7 C 79 17 106/66 94 Laboratory Results Abnormal lab results 10/04/19 10/04/19 10/04/19 Range/Units 16:10 18:36 19:58 RBC (4.7-6.1) M/uL Hgb (14.0-18.0) g/dL Hct (42-52) % Immature Gran # (Auto) (0.00-0.02) K/uL Sodium 134 L (136-145) mmol/L Anion Gap (3-11) BUN 37 H (7-18) mg/dl Creatinine 3.13 H D (0.6-1.4) mg/dl Glucose 112 H (70-99) mg/dl POC Glucose 125 H 111 H (70-99) mg/dl Hemoglobin A1c (4.5-5.6) % Osmolality (280-300) mOsm/kg Calcium (8.5-10.1) mg/dl Total Bilirubin (0.2-1) mg/dl Alkaline Phosphatase (45-117) U/L Albumin (3.4-5.0) gm/dl Albumin/Globulin Ratio (0.9-2) 10/05/19 10/05/19 10/05/19 Range/Units 00:13 00:59 00:59 RBC 3.91 L (4.7-6.1) M/uL Hgb 11.3 L (14.0-18.0) g/dL Hct 32.1 L (42-52) % Immature Gran # (Auto) 0.03 H (0.00-0.02) K/uL Sodium (136-145) mmol/L Anion Gap (3-11) BUN (7-18) mg/dl Creatinine (0.6-1.4) mg/dl Glucose (70-99) mg/dl POC Glucose 326 H* (70-99) mg/dl Hemoglobin A1c 8.9 H (4.5-5.6) % Osmolality (280-300) mOsm/kg Calcium (8.5-10.1) mg/dl Total Bilirubin (0.2-1) mg/dl Alkaline Phosphatase (45-117) U/L Albumin (3.4-5.0) gm/dl Albumin/Globulin Ratio (0.9-2) 10/05/19 10/05/19 10/05/19 Range/Units 00:59 00:59 01:11 RBC (4.7-6.1) M/uL Hgb (14.0-18.0) g/dL Hct (42-52) % Immature Gran # (Auto) (0.00-0.02) K/uL Sodium 135 L (136-145) mmol/L Anion Gap 12.0 H (3-11) BUN 39 H (7-18) mg/dl Creatinine 3.06 H (0.6-1.4) mg/dl Glucose 258 H (70-99) mg/dl POC Glucose 266 H (70-99) mg/dl Hemoglobin A1c (4.5-5.6) % Osmolality 304 H (280-300) mOsm/kg Calcium 8.4 L (8.5-10.1) mg/dl Total Bilirubin 2.0 H (0.2-1) mg/dl Alkaline Phosphatase 165 H (45-117) U/L Albumin 3.1 L (3.4-5.0) gm/dl Albumin/Globulin Ratio 0.8 L (0.9-2) 10/05/19 10/05/19 10/05/19 Range/Units 04:12 08:21 12:16 RBC (4.7-6.1) M/uL Hgb (14.0-18.0) g/dL Hct (42-52) % Immature Gran # (Auto) (0.00-0.02) K/uL Sodium (136-145) mmol/L Anion Gap (3-11) BUN (7-18) mg/dl Creatinine (0.6-1.4) mg/dl Glucose (70-99) mg/dl POC Glucose 224 H 150 H 115 H (70-99) mg/dl Hemoglobin A1c (4.5-5.6) % Osmolality (280-300) mOsm/kg Calcium (8.5-10.1) mg/dl Total Bilirubin (0.2-1) mg/dl Alkaline Phosphatase (45-117) U/L Albumin (3.4-5.0) gm/dl Albumin/Globulin Ratio (0.9-2) NUCLEAR MEDICINE HEPATOBILIARY SCAN HISTORY: Right upper quadrant pain. Gallstones. COMPARISON: Abdomen and pelvis CT 08/10/2018. Abdominal ultrasound 10/04/2019. TECHNIQUE: Immediately following the intravenous administration of 5.4 mCi Tc- 99m Choletec, dynamic anterior abdominal imaging was performed. FINDINGS: Uniform hepatic tracer accumulation is shown. Prompt intrahepatic biliary excretion is seen. The gallbladder, common bile duct, and small bowel are all visualized by 22 minutes. Of note, there is a small amount of radiotracer seen within the gallbladder at 22 minutes. The radiotracer does not stay within the gallbladder and this appears to approximately the 75 minute henry. However, since the radiotracer is seen in the gallbladder prior to 60 minutes this would be consistent with the normal appearance of biliary excretion. IMPRESSION: 1. No evidence for cystic duct obstruction. ABDOMINAL ULTRASOUND, RIGHT UPPER QUADRANT HISTORY: Elevated bilirubin Alk Phos, burning chest pain. COMPARISON: Abdomen and pelvis CT 08/10/2018. FINDINGS: Pancreas: The pancreatic tail is obscured by overlying bowel gas. The remaining portions of the pancreas are within normal limits. Liver: Unremarkable. Gallbladder: The gallbladder is filled with sludge and stones. No significant gallbladder wall thickening. No pericholecystic fluid. Negative sonographic Adrian sign. CBD: 4 mm. Right kidney: No hydronephrosis. IMPRESSION: 1. The gallbladder is filled with sludge and stones. No gallbladder wall thickening. Negative sonographic Adrian sign. 2. Normal caliber common bile duct.
[2019-10-06] MEDS: LACTATED RINGER'S 1,000 ML IV SCH (01:31)
[2019-10-06] MEDS: TACROLIMUS 1 MG CAP PO SCH (06:06)
[2019-10-06] MEDS: METOPROLOL TARTRATE 50 MG TAB PO SCH (07:48)
[2019-10-06] MEDS: FEXOFENADINE HCL 180 MG TAB PO SCH (07:48)
[2019-10-06] MEDS: MAGNESIUM OXIDE 400 MG TAB PO SCH (07:48)
[2019-10-06] MEDS: predniSONE 5 MG TAB PO SCH (07:48)
[2019-10-06] MEDS: PANTOprazole 40 MG TAB PO SCH (07:48)
[2019-10-06] MEDS: FERROUS SULFATE 325 MG TAB PO SCH (07:48)
[2019-10-06] MEDS: VALGANCICLOVIR PO SCH ×2 (07:49→07:56)
[2019-10-06] MEDS: ZORTRESS 0.5 MG PO SCH (07:49)
[2019-10-06] MEDS: ZENPEP PO SCH ×2 (07:49→11:47)
[2019-10-06 08:12] LABS: BUN Creatinine Ratio 13.4 (10-20); Calcium 8.5 mg/dl (8.5-10.1); Creatinine Clr Calc Pharmacy 31.1 ml/min; Est GFR (African American) 32.3; Est GFR (Non-African American) 27.9; Potassium 3.4 mmol/L (3.5-5.1)
[2019-10-06] MEDS: NovoLOG INSULIN PUMP SCH ×2 (08:25→11:46)
[2019-10-06] MEDS ORDERED: POTASSIUM CHLORIDE 20 MEQ TABCR PO STA (09:14)
[2019-10-06] MEDS ORDERED: POTASSIUM CHLORIDE 20 MEQ TABCR PO ONE (09:15)
--- NOTE | 2019-10-06 10:51 | Nephrology Progress Note ---
Date of Service October 06, 2019 Assessment & Plan (1) Acute on chronic renal failure: Patient with the acute kidney injury on CKD likely due to prerenal azotemia. Patient has a baseline creatinine of 1.8 likely in setting of calcineurin inhibitor toxicity. Admission creatinine was 3.7. Creatinine is downtrending with IV fluids to 2.79 today. K is low at 3.4 -Stop fluids. -P.o. potassium chloride 20 mEq once -Daily BMP -Avoid nephrotoxins such as contrast unless lifesaving. -From renal standpoint patient can be discharged on same dose of immunosuppression 2 mg twice daily. He will need a BMP on Saturday. This can be sent to my office. I encouraged patient to establish with renal. He can follow-up with myself or 1 of my colleagues at [facility] (2) Hyponatremia: Due to hypovolemia. Sodium improved to 141 today. (3) Lung replaced by transplant: Continue Prograf 2 mg twice daily and prednisone 5 mg daily. Prograf dose was recently reduced by the transplant center just few days before admission. We will follow-up on the Prograf levels. Target Prograf levels of 6-8. Admission and Anticipated Discharge Date Admission Date: October 04, 2019 Subjective Patient feels better today. No vomiting or epigastric pain. No chest pain. Creatinine continues to improve. Review of Systems Review of Systems: All systems reviewed & are unremarkable except as noted in HPI & below Physical Exam Physical Exam: General exam: Appears comfortable, no acute distress HEENT: Pupils are equal and reactive to light Neck: No JVD, neck is supple trachea is midline Respiratory system: Clear breath sounds bilaterally. Gastrointestinal: Abdomen is soft, non distended, non tender, bowel sounds are present CVS: Regular rate and rhythm. No murmurs, rubs or gallops Musculoskeletal: No joint or muscle tenderness Extremities: Non tender, no edema, peripheral pulses are present Neuro: Oriented, no tremors, no focal neurological deficits Skin: No rashes Results & Data ([facility]) Vital Signs (Past 12 Hours) Vital Signs Temp Pulse Pulse Resp BP Pulse Ox 10/06/19 07:15 36.6 C 67 16 109/66 99 10/06/19 03:12 36.7 C 65 17 114/68 98 10/06/19 00:00 65 10/05/19 23:21 37.0 C 71 17 101/59 L 98 Laboratory Results 10/06/19 06:55
[2019-10-06 11:07] VITALS: PULSE 68; TEMP 98.2; O2SAT 97
--- NOTE | 2019-10-06 11:40 | Pharmacy Report ---
Glycemic Control Progress Note - Date of Service October 06, 2019 - Scope Glycemic Pharmacist consulted for glycemic control to write orders per [facility] inpatient glycemic control protocol. - Objective Accuchecks BSG(last 24 hours):: 10/05/19 10/05/19 10/05/19 12:16 16:29 20:21 Glucose POC Glucose 115 H 165 H 175 H 10/06/19 10/06/19 10/06/19 06:55 07:38 07:39 Glucose 43 L* POC Glucose 49 L* 49 L* 10/06/19 10/06/19 10/06/19 08:01 08:21 11:23 Glucose POC Glucose 46 L* 199 H 226 H HbA1c:: Hemoglobin A1c 8.9 % (4.5-5.6) H 10/05/19 00:59 - Recent Pertinent Medications The patient is currently receiving: * Insulin pump per home settings - Outpatient Anti-Diabetic Meds insulin pump - Assessment & Plan ASSESSMENT: * See progress note from 10/04/2019 for more background info, in short: * Pt receiving SQ basal bolus insulin regimen for hyperglycemia secondary to baseline DM (outpatient regimen on hold) and prednisone 5 mg PO qAM (per home dose) * Patient is currently receiving insulin via insulin pump at home settings * Changes needed to insulin regimen: * AM Fasting BSG = 49 mg/dl. This is BELOW goal range for patient based on inpatient targets and co-morbidities. Discussed this with patient --- this can happen to him at home. He often eats at bedtime and throughout the night to prevent hypoglycemia. He is okay with setting temporary basal rate overnight if he remains. * Post-prandial BSGs are relatively well controlled. * Total daily dose is controlled by insulin pump. units. PLAN FOR INPATIENT GLYCEMIC CONTROL: * Continuing insulin pump at home settings --- if patient stays then would need to decrease basal rate overnight. * Continuing / changing correction factor to [] mg/dl/unit * Continuing / changing carb ratio to 1 unit per [] grams CHO consumed * Continuing / changing goal range to Low [] mg/dL - High [] mg/dL RECOMMENDATIONS FOR DISCHARGE: * Continue working with outside providers to maximize glycemic control. Thank you.
[2019-10-06] MEDS: CHOLECALCIFEROL 1,000 UNITS 25 MCG TAB PO SCH (11:47)
--- NOTE | 2019-10-06 14:38 | Hospitalist Progress Note ---
Date of Service October 06, 2019 Assessment & Plan (1) Burning chest pain: (2) GERD (gastroesophageal reflux disease): Present on admission with burning sensation in the chest Possible related to GERD EKG showed no acute findings. Troponin was negative. History of severe GERD as well- expected to have fundoplication in the future. 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 Has been doing well with his transplant and getting regular PFTs to monitor for signs of rejection- these have been stable. Case discussed with Lung transplant team Dr. Lawson (cell number [phone]) and Dr. Pan (cell [phone]) that recommended to continue current dose of the Tacrolimus 2mg BID since it was decrease recently and Everolimus 1.5mg BID. Consider transfer if patient decompensates or does not improve as per the transplant team Tacrolimus level 9.3 Nephrology recommended Target Prograf levels of 6-8 Continue PO Azithromycin and PO Bactrim for prophylactic purposes on MWF. Transplant team Dr. Pan has been updated Follow up with the transplant team (5) CKD (chronic kidney disease), stage III: (6) Acute on chronic renal failure: Patient with CKD 2-3 as outpatient. Most recently appears that baseline creatinine is around 1.7-1.9. Creatinine on admission 3.65. Received IVF Creatinine improved to 2.7 today Continue IVF Will avoid nephrotoxic agents Nephrology on board Ok from nephrology standpoint to discharge home Check BMP in 1 week to monitor renal function Follow up with nephrology (7) Gallbladder sludge: Unclear if symptoms related to acute cholecystitis RUQ abdominal u/s showed gallbladder is filled with sludge and stones. No gallbladder wall thickening. Negative sonographic Adrian sign. Surgery on board to eval for cholecystectomy Plan to get HIDA scan today to r/o acute cholecystitis If HIDA scan positive, will talk to transplant team if they would prefer him to undergo Lap Chol surgery here or at [facility] HIDA scan showed no evidence for cystic duct obstruction. Spoke to transplant team Dr. Pan about if pt would need to get surgery done in the future for cholecystectomy, Dr. Pan recommended they would prefer he gets any surgical procedure done at [facility] that they can monitor him. Tolerated his diet Denies any symptoms (8) Hyponatremia: Sodium 128 on admission. 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: (11) Insulin dependent diabetes mellitus: (12) Insulin pump in place: Pharmacy on board for glycemic management Continue monitor BS (13) DVT prophylaxis: Hold Heparin for now in case if pt will go for surgery Admission and Anticipated Discharge Date Admission Date: October 04, 2019 Subjective Pt was seen and examined Lying in bed with no distress Pt said that he feels fine He said that he does not have any pain Tolerated his diet Denies any chest pain, palpitation, dizziness and SOB Physical Exam Physical Exam: General- No acute distress Head- atraumatic Eyes- PERRL, EOMI, ENT- oropharynx clear Neck- supple, no JVD Lungs- clear to auscultation Heart- regular rhythm; no murmur Abdomen- normal bowel sounds, soft, nontender Extremities- no calf tenderness Neuro- alert, oriented x 3; PERRL, EOMI; no facial palsy; no dysarthria Skin- warm & dry Results & Data Results & Data ([facility]) Vital Signs (Past 12 Hours) Vital Signs Temp Pulse Resp BP Pulse Ox 10/06/19 11:06 36.8 C 68 17 117/75 97 10/06/19 07:15 36.6 C 67 16 109/66 99 10/06/19 03:12 36.7 C 65 17 114/68 98
[2019-10-06 15:04] VITALS: BP 98/52
--- NOTE | 2019-10-08 11:43 | Discharge Summary ---
Date of Service October 06, 2019 Admission HPI Per Admitting Provider Patient is a 34 yo male with history of double lung transplant for cystic fibrosis in 02/2016 by [facility]. The patient presented to the ED with concern of burning chest pain and muscle cramping. The patient has been working a lot recently, and he notes that the burning chest pain started a few days ago. It initially went away, but when it started last night, it didnt go away. He admits that he doesnt drink enough water. He drinks maybe 3-4 glasses per day. He otherwise has been in good health. He has been golfing on a regular basis without problems. The patient reports no cough, sputum production, ROLLE, li ghtheadedness/dizziness, SOB, radiating chest pain, N/V/D/C, or peripheral edema. He continues to follow regularly with [facility] Transplant in [place]. He was last seen on 07/23/19 for follow up. The patient does have PFTs regularly to monitor for early signs of rejection. He most recently had PFTs completed at [facility] and read by Dr. Ledezma on 09/22/19 which were within normal. The patient traditionally ranges between CKD2-3 per his Transplant teams notes and has a baseline creatinine around 1. More recently, from review of his records, it appears that his baseline ranges from 1.7-1.9. He had outpatient labs completed on 09/25/19 which showed creatinine of 3.72. He states that his tacrolimus was adjusted and he was told to drink more water. Since presentation to the ED, he is noted to have lab abnormalities including elevated creatinine to 3.65, hyponatremia of 128, hypokalemia of 3.3, elevated bilirubin to 2.1, mildly elevated Alk Phos of 126, and slightly worsening anemia with Hgb of 11.1. BP upon initial presentation was elevated to 150/89 but now is 134/91. EKG showed sinus bradycardia with HR 58 BPM. Chest X-Ray showed mild interstitial thickening at the lingual and RML. Noted th at this could be chronic or mild pneumonitis. Dr. Treadwell discussed patient with [facility] Transplant team- recommended hydration and continuing antirejection medications at current doses. If status worsens, may require transfer to [facility]. Admission Exam Per Admitting Provider Constitutional: WD/WN, vitals as above Eyes: PERRL, conjunctivae normal, anicteric sclerae ENMT: external ear and nose normal, oropharynx normal Neck: trachea midline, no thyromegaly Respiratory: normal respiratory effort, lungs clear to auscultation Cardiovascular: RRR, no murmur, no edema Extremities: no edema Gastrointestinal:Inspection/Auscultation: abdomen normal to inspection and normal bowel sounds; abdomen not distended Percussion/Palpation: + abdomen tender (Mild mid-epigastric tenderness) Musculoskeletal: : normocephalic, head atraumatic and neck supple Extremities: extremities normal to inspection; no cyanosis Skin: no rashes, warm and dry Psychiatric: A+Ox3, euthymic affect Principal Diagnosis (1) Burning chest pain: (2) GERD (gastroesophageal reflux disease): (3) Cystic fibrosis: (4) Lung replaced by transplant: (5) CKD (chronic kidney disease), stage III: (6) Acute on chronic renal failure: (7) Gallbladder sludge: (8) Hyponatremia: (9) Hypokalemia: (10) 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: (11) Insulin dependent diabetes mellitus: (12) Insulin pump in place: Discharge Exam General- No acute distress Head- atraumatic Eyes- PERRL, EOMI, ENT- oropharynx clear Neck- supple, no JVD Lungs- clear to auscultation Heart- regular rhythm; no murmur Abdomen- normal bowel sounds, soft, nontender Extremities- no calf tenderness Neuro- alert, oriented x 3; PERRL, EOMI; no facial palsy; no dysarthria Skin- warm & dry Discharge Data Allergies Allergy/AdvReac Type Severity Reaction Status Date / Time vancomycin Allergy Intermediate RED MAN Unverified 10/04/19 09:50 SYNDROME clavulanic acid Allergy Unknown allergy Unverified 10/04/19 09:50 betalactamase inhibitor Penicillins Allergy Unknown . Unverified 10/04/19 09:50 Consultations 10/04/19 09:36 ED Decision to Admit Stat 10/04/19 13:31 Consult Case Management - Discharge Planning Routine Consult Nephrology Routine 10/04/19 18:48 Consult General Surgery Routine Ordered Studies 10/04/19 15:06 US liver Routine XR chest 2V PA/lateral HISTORY: Atypical chest pain, hx CF with lung transplant COMPARISON: Chest 07/03/2016. FINDINGS: Postoperative changes consistent with prior bilateral lung transplant. No pleural effusions. No pneumothorax. The heart is normal in size. There is a right Port-A-Cath which terminates in the SVC. Mild interstitial thickening at the lingula and right middle lobe. This has improved in the interval. IMPRESSION: Mild interstitial thickening at the lingula and right middle lobe. This has improved in the interval. Therefore, this could be chronic or represent a mild pneumonitis. ACT 112: Negative or not required by law. Electronically signed by: Jax Ortiz M.D. 10/04/2019 9:25 AM Dictated: 10/04/19922 Transcribed: 10/04/19922 ABDOMINAL ULTRASOUND, RIGHT UPPER QUADRANT HISTORY: Elevated bilirubin Alk Phos, burning chest pain. COMPARISON: Abdomen and pelvis CT 08/10/2018. FINDINGS: Pancreas: The pancreatic tail is obscured by overlying bowel gas. The remaining portions of the pancreas are within normal limits. Liver: Unremarkable. Gallbladder: The gallbladder is filled with sludge and stones. No significant gallbladder wall thickening. No pericholecystic fluid. Negative sonographic Adrian sign. CBD: 4 mm. Right kidney: No hydronephrosis. IMPRESSION: 1. The gallbladder is filled with sludge and stones. No gallbladder wall thickening. Negative sonographic Adrian sign. 2. Normal caliber common bile duct. ACT 112: Negative or not required by law. Electronically signed by: Jax Ortiz M.D. 10/04/2019 6:30 PM Dictated: 10/04/19 1827 Transcribed: 10/04/191826 NUCLEAR MEDICINE HEPATOBILIARY SCAN HISTORY: Right upper quadrant pain. Gallstones. COMPARISON: Abdomen and pelvis CT 08/10/2018. Abdominal ultrasound 10/04/2019. TECHNIQUE: Immediately following the intravenous administration of 5.4 mCi Tc- 99m Choletec, dynamic anterior abdominal imaging was performed. FINDINGS: Uniform hepatic tracer accumulation is shown. Prompt intrahepatic biliary excretion is seen. The gallbladder, common bile duct, and small bowel are all visualized by 22 minutes. Of note, there is a small amount of radiotracer seen within the gallbladder at 22 minutes. The radiotracer does not stay within the gallbladder and this appears to approximately the 75 minute henry. However, since the radiotracer is seen in the gallbladder prior to 60 minutes this would be consistent with the normal appearance of biliary excretion. IMPRESSION: 1. No evidence for cystic duct obstruction. ACT 112: Negative or not required by law. Electronically signed by: Jax Ortiz M.D. 10/05/2019 2:31 PM Dictated: 10/05/191426 Transcribed: 10/05/191426 Hospital Course (1) Burning chest pain: (2) GERD (gastroesophageal reflux disease): Present on admission with burning sensation in the chest Possible related to GERD EKG showed no acute findings. Troponin was negative. History of severe GERD as well- expected to have fundoplication in the future. 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 Has been doing well with his transplant and getting regular PFTs to monitor for signs of rejection- these have been stable. Case discussed with Lung transplant team Dr. Lawson (cell number [phone]) and Dr. Pan (cell [phone]) that recommended to continue current dose of the Tacrolimus 2mg BID since it was decrease recently and Everolimus 1.5mg BID. Consider transfer if patient decompensates or does not improve as per the transplant team Tacrolimus level 9.3 Nephrology recommended Target Prograf levels of 6-8 Continue PO Azithromycin and PO Bactrim for prophylactic purposes on MWF. Transplant team Dr. Pan has been updated Follow up with the transplant team (5) CKD (chronic kidney disease), stage III: (6) Acute on chronic renal failure: Patient with CKD 2-3 as outpatient. Most recently appears that baseline creatinine is around 1.7-1.9. Creatinine on admission 3.65. Received IVF Creatinine improved to 2.7 today Continue IVF Will avoid nephrotoxic agents Nephrology on board Ok from nephrology standpoint to discharge home Check BMP in 1 week to monitor renal function Follow up with nephrology (7) Gallbladder sludge: Unclear if symptoms related to acute cholecystitis RUQ abdominal u/s showed gallbladder is filled with sludge and stones. No gallbl adder wall thickening. Negative sonographic Adrian sign. Surgery on board to eval for cholecystectomy Plan to get HIDA scan today to r/o acute cholecystitis If HIDA scan positive, will talk to transplant team if they would prefer him to undergo Lap Chol surgery here or at [facility] HIDA scan showed no evidence for cystic duct obstruction. Spoke to transplant team Dr. Pan about if pt would need to get surgery done in the future for cholecystectomy, Dr. Pan recommended they would prefer he gets any surgical procedure done at [facility] that they can monitor him. Tolerated his diet Denies any symptoms (8) Hyponatremia: Sodium 128 on admission. 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: (11) Insulin dependent diabetes mellitus: (12) Insulin pump in place: Pharmacy on board for glycemic management Continue monitor BS (13) DVT prophylaxis: Hold Heparin for now in case if pt will go for surgery Total Time Total Time Spent Total Time Spent (In Minutes): 35 minutes Total Time Includes: Examination of the Patient, Discharge Planning, Medication Reconciliation, Communication With Other Providers and Other Discharge Plan Discharge Items Patient Disposition: Home - Self-Care Reason For Visit: CHEST PAIN Discharge Diagnosis: (1) Burning chest pain: (2) GERD (gastroesophageal reflux disease): (3) Cystic fibrosis: (4) Lung replaced by transplant: (5) CKD (chronic kidney disease), stage III: (6) Acute on chronic renal failure: (7) Gallbladder sludge: (8) Hyponatremia: (9) Hypokalemia: (10) 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: (11) Insulin dependent diabetes mellitus: (12) Insulin pump in place: Condition on Discharge: Good Activity: Resume your previous activity Non-emergency contact: Primary Care Provider Call non-emergency contact if: you have any medication questions and your temperature is above 101 Follow-up/Referrals: Enrique Toscano MD [Primary Care Provider] - Diet: Carb Count or DM1 Addtl Attending Provider Instructions: Follow up with your transplant team provider in [place] Follow up with your primary care provider within 1 week (call to schedule for the appointment ) Follow up with your Endocrinology Follow up with [facility] Nephrology Dr. Morales Check BMP in 1 week to monitor electrolytes and renal function Monitor your blood sugar Your Tacrolimus level is 9.3 Pending Studies at Discharge: No Stand-Alone Forms: My [employer], Smoking Cessation Medications and DC Order Prescriptions: Continued Novolog U-100 Insulin aspart 100 unit/mL solution See Rx Instructions continuous subcutaneous infusion UD Qty: 30 RF: 5 valganciclovir 450 mg tablet 450 mg PO DAILY RF: 0 prednisone 5 mg tablet 5 mg PO QAM RF: 0 fexofenadine [Radha Allergy] 180 mg Tablet 180 mg PO QAM RF: 0 sulfamethoxazole-trimethoprim 800-160 mg tablet 0.5 tab PO 3XWK RF: 0 metoprolol tartrate 50 mg tablet 50 mg PO BID RF: 0 magnesium 250 mg Tablet 250 mg PO BID RF: 0 albuterol sulfate [Ventolin HFA] 90 mcg/actuation Hfa Aerosol Inhaler 2 puff INHALATION Q4H PRN (Reason: Shortness Of Breath Or Wheezing) RF: 0 ferrous sulfate 325 mg (65 mg iron) Tablet,Delayed Release (Dr/Ec) 325 mg PO BIDM RF: 0 tacrolimus 1 mg capsule 2 mg PO BID RF: 0 Vitamin D3 4,000 unit Capsule 4,000 unit PO QDL RF: 0 Zenpep 40,000-126,000- 168,000 unit Capsule,Delayed Release(Dr/Ec) 6 cap PO TIDM RF: 0 everolimus (immunosuppressive) [Zortress] 0.5 mg tablet 1.5 mg PO BID RF: 0 azithromycin 250 mg Tablet 250 mg PO USEASDIRECTD RF: 0 esomeprazole magnesium 40 mg capsule,delayed release(DR/EC) 40 mg PO BID RF: 0 Discharge Orders: Discharge Order (Routine); Ordered 10/06/19 Ordered By: Miguel Barragan/Other Patient Handouts: What Are Gallstones, Treating Gallstones, Discharge Instructions for Gallstones Admission Data Admit Date/Time: 10/04/19 11:59 Attending Provider: Miguel Treadwell Admit Provider: Miguel Treadwell Primary Care Provider: Enrique Toscano Other Providers: Charito Sanchez ; Miguel Treadwell ; Renee Herbert Other Interventions: Discharge Summary Assessment (RN) Last Done: 10/06/19 15:02 DC Date/Time DO NOT enter until pt leaves facility: 10/06/19 15:17
== END 2019-10-06 15:17 | disposition home or self-care (01) | DRG 313 ==
LOC: ED 07:12 → 2S 11:59

== ENCOUNTER 2020-03-23 09:19 | Inpatient (IN) ==
[2020-03-23] MEDS ORDERED: SODIUM CHLORIDE 0.9% 1000ML 500 ML IV ONE (09:43)
[2020-03-23] MEDS ORDERED: ONDANSETRON INJ 2 MG/ML 2 ML VIAL IV STA (09:48)
[2020-03-23] MEDS ORDERED: MoRPHine SULFATE 4 MG/ML 1 ML CARP\\VIAL IV STA ×2 (09:48→14:15)
--- NOTE | 2020-03-23 09:48 | Emergency Department Note ---
History of Present Illness General Chief complaint: Illness Stated complaint: FEVER,BODY ACHES, CHEST TIGHTNESS Time Seen by Provider: 03/23/20 09:32 History of Present Illness Maximum Pain Intensity: 7 This is a 34-year-old male that presents to the emergency department via private vehicle with complaints "fever, body aches, chest tightness". The patient notes that he had a history of cystic fibrosis and is status post bilateral lung transplant and just reached the 4-year henry post transplant February 21. This was performed in [facility]. The patient notes that he has been doing well up until last night around 8 PM he began with chest tightness and a fever. He notes some mild pain. He took a hot shower which seemed to improve this and developed chills, and then temp developed 101 F. He took Tylenol for the pain and fever and awoke today with a persistent fever so 101 F. He has mild shortness of breath. 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 The patient is currently being seen during the COVID-19 pandemic. He denies any loss of taste or smell. He has tried Tylenol this morning for the pain and cannot take NSAIDs. Currently discomfort is 7/10. His senior scheduler in [place] is Dr. Pan. Home Medications Medication Instructions Recorded Confirmed Type Zenpep 6 cap PO AC 08/10/18 03/23/20 History albuterol sulfate [Ventolin HFA] 2 puff INHALATION Q4H PRN 08/10/18 03/23/20 History ferrous sulfate 325 mg PO BIDM 08/10/18 03/23/20 History fexofenadine [Radha Allergy] 180 mg PO QAM 08/10/18 03/23/20 History magnesium 250 mg PO BID 08/10/18 03/23/20 History metoprolol tartrate 50 mg PO BID 08/10/18 03/23/20 History prednisone 5 mg PO QAM 08/10/18 03/23/20 History sulfamethoxazole-trimethoprim 0.5 tab PO 3XWK 08/10/18 03/23/20 History tacrolimus 2 mg PO BID 08/10/18 03/23/20 History valganciclovir 450 mg PO DAILY 08/10/18 03/23/20 History Novolog U-100 Insulin aspart 100 See Rx Instructions CONTINUOUS 04/23/19 03/23/20 Rx unit/mL subcutaneous solution SUBCUTANEOUS INFUSION UD #30 ml NS azithromycin 250 mg PO 3XWK 10/04/19 03/23/20 History esomeprazole magnesium 40 mg PO BID 10/04/19 03/23/20 History everolimus (immunosuppressive) 1.5 mg PO BID 10/04/19 03/23/20 History [Zortress] ergocalciferol (vitamin D2) 50,000 unit PO DAILY 12/08/19 03/23/20 History [Vitamin D2] acetaminophen [Tylenol] 650 mg PO QID PRN 03/23/20 03/23/20 History Allergies Allergy/AdvReac Type Severity Reaction Status Date / Time vancomycin Allergy Intermediate Red man Verified 03/23/20 10:27 syndrome Past Med/Surg History Medical History Acute on chronic renal failure CKD (chronic kidney disease), stage III Cystic fibrosis (11/28/12) Diabetes 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 GERD (gastroesophageal reflux disease) H/O testicular biopsy Insulin dependent diabetes mellitus Vitamin D deficiency Surgical History H/O inguinal hernia repair Lung transplanted Social History Smoking Status: Never smoker Hx Alcohol Use: Yes Alcohol type: beer Hx Substance Use: No Preferred Language: Pakistani Communication Ability: Effective Insurance Coordinator Required: No Beliefs That Will Affect Care: None Current Living Situation: Other Current Living Situation Comment: friend Feels Safe at Home: Yes Assistive Devices: Glasses Review of Systems A total of 10 systems reviewed and were otherwise negative Physical Exam Vital Signs Vital Signs - 24 hr 03/23/20 09:29 03/23/20 10:15 03/23/20 10:17 Temperature 37.5 C Temperature Source Temporal Artery Scan Pulse Rate 111 H 108 H 107 H Pulse Rate from SpO2 Sensor 108 H Respiratory Rate 22 18 20 Blood Pressure 115/74 143/88 H Blood Pressure Mean 87 100 Pulse Oximetry 95 94 95 Oxygen Delivery Method Room Air Room Air Sepsis Recent Fever Within 48 Hours No Sepsis New/Unexplained Change in Mental Status No Sepsis Action Taken by Nursing No Action Required 03/23/20 10:18 03/23/20 10:23 03/23/20 10:30 Temperature Temperature Source Pulse Rate 108 H 108 H 107 H Pulse Rate from SpO2 Sensor 108 H 107 H Respiratory Rate 20 17 16 Blood Pressure 143/88 H 137/86 Blood Pressure Mean 106 99 Pulse Oximetry 94 95 95 Oxygen Delivery Method Room Air Sepsis Recent Fever Within 48 Hours Sepsis New/Unexplained Change in Mental Status Sepsis Action Taken by Nursing 03/23/20 10:31 03/23/20 11:00 03/23/20 11:01 Temperature Temperature Source Pulse Rate 107 H 104 H 106 H Pulse Rate from SpO2 Sensor 107 H 104 H 107 H Respiratory Rate 18 20 18 Blood Pressure 132/88 Blood Pressure Mean 94 Pulse Oximetry 93 94 96 Oxygen Delivery Method Sepsis Recent Fever Within 48 Hours Sepsis New/Unexplained Change in Mental Status Sepsis Action Taken by Nursing 03/23/20 11:30 03/23/20 11:31 03/23/20 12:00 Temperature Temperature Source Pulse Rate 101 H 107 H 103 H Pulse Rate from SpO2 Sensor 101 H 105 H 103 H Respiratory Rate 20 18 16 Blood Pressure 124/80 113/65 Blood Pressure Mean 89 76 Pulse Oximetry 95 95 92 Oxygen Delivery Method Sepsis Recent Fever Within 48 Hours Sepsis New/Unexplained Change in Mental Status Sepsis Action Taken by Nursing 03/23/20 12:01 03/23/20 12:30 03/23/20 12:31 Temperature Temperature Source Pulse Rate 103 H 102 H 104 H Pulse Rate from SpO2 Sensor 104 H 102 H 104 H Respiratory Rate 16 18 15 Blood Pressure 121/62 Blood Pressure Mean 72 Pulse Oximetry 92 93 93 Oxygen Delivery Method Sepsis Recent Fever Within 48 Hours Sepsis New/Unexplained Change in Mental Status Sepsis Action Taken by Nursing 03/23/20 13:00 03/23/20 13:01 03/23/20 13:30 Temperature Temperature Source Pulse Rate 104 H 99 H 101 H Pulse Rate from SpO2 Sensor 104 H 100 H 101 H Respiratory Rate 18 20 18 Blood Pressure 106/67 118/74 Blood Pressure Mean 74 84 Pulse Oximetry 94 94 95 Oxygen Delivery Method Sepsis Recent Fever Within 48 Hours Sepsis New/Unexplained Change in Mental Status Sepsis Action Taken by Nursing 03/23/20 13:31 03/23/20 14:00 03/23/20 14:01 Temperature Temperature Source Pulse Rate 102 H 100 H 102 H Pulse Rate from SpO2 Sensor 102 H 99 H 102 H Respiratory Rate 18 16 13 Blood Pressure 111/71 Blood Pressure Mean 81 Pulse Oximetry 94 94 94 Oxygen Delivery Method Sepsis Recent Fever Within 48 Hours Sepsis New/Unexplained Change in Mental Status Sepsis Action Taken by Nursing 03/23/20 14:30 03/23/20 14:31 03/23/20 15:00 Temperature Temperature Source Pulse Rate 100 H 99 H 99 H Pulse Rate from SpO2 Sensor 100 H 99 H 99 H Respiratory Rate 23 20 12 Blood Pressure 121/83 127/77 Blood Pressure Mean 92 89 Pulse Oximetry 95 95 95 Oxygen Delivery Method Room Air Sepsis Recent Fever Within 48 Hours Sepsis New/Unexplained Change in Mental Status Sepsis Action Taken by Nursing 03/23/20 15:30 Temperature Temperature Source Pulse Rate 104 H Pulse Rate from SpO2 Sensor 104 H Respiratory Rate 17 Blood Pressure 119/77 Blood Pressure Mean 88 Pulse Oximetry 95 Oxygen Delivery Method Room Air Sepsis Recent Fever Within 48 Hours Sepsis New/Unexplained Change in Mental Status Sepsis Action Taken by Nursing VITAL SIGNS - Vital signs and nursing notes were reviewed. Stable and afebrile. Mildly tachycardic. GENERAL -34-year-old male appearing his stated age who is in no acute distress. Communicates well with provider and answers questions appropriately. SKIN - Without rashes. No meningeal or petechial rash. HEAD - NC/AT. EYES - PERRL with EOMI bilaterally. Sclera anicteric. EARS - No deformities of external structures noted on gross examination bilaterally. NOSE - Midline and without cyanosis. No epistaxis or purulent drainage noted. Septum midline without deviation or septal hematoma noted. MOUTH/OROPHARYNX - Without perioral cyanosis. NECK - Neck with FROM. Supple to palpation. No lymphadenopathy noted. No nuchal rigidity. LUNGS - Chest wall symmetric without accessory muscle use, intercostals retractions, or central cyanosis. Mild wheeze on the right. Otherwise CTA. CARDIAC - RRR with S1/S2. No murmur, rubs, or gallops appreciated. ABDOMEN - Abdominal contour normal without pulsations or visible masses. BS normoactive all four quadrants. No tenderness, palpable masses, hepatosplenomegaly, or ascites noted. EXTREMITIES - No clubbing or peripheral cyanosis. NEUROLOGIC - Cranial nerves II through XII grossly intact. PSYCH - A&O, and cooperates fully with examiner. Pt is very pleasant and interacts well with examiner. Course Administered Medications Discontinued Medications Diphenhydramine HCl (Diphenhydramine 50 Mg/Ml Vial) 50 mg IV NOW STA Stop: 03/23/20 11:14 Last Admin: 03/23/20 13:49 Dose: 50 mg Documented by: [id number] Diphenhydramine HCl (Diphenhydramine 50 Mg/Ml Vial) Confirm Administered Dose 50 mg .ROUTE .STK-MED ONE Stop: 03/23/20 13:46 Last Admin: 03/23/20 13:49 Dose: Not Given Documented by: [id number] Sodium Chloride (Nss 1000ml) 500 mls @ 999 mls/hr IV .Q31M ONE Stop: 03/23/20 10:13 Last Infusion: 03/23/20 11:12 Dose: 0 mls/hr Documented by: [id number] Admin: 03/23/20 10:10 Dose: 999 mls/hr Documented by: [id number] Ceftazidime 1,000 mg/ Dextrose 50 mls @ 100 mls/hr IV NOW STA Stop: 03/23/20 11:42 Last Infusion: 03/23/20 12:32 Dose: 0 mls/hr Documented by: [id number] Admin: 03/23/20 11:53 Dose: 100 mls/hr Documented by: [id number] Levofloxacin/Dextrose (Levaquin/D5w) 500 mg in 100 mls @ 100 mls/hr IV NOW STA Stop: 03/23/20 12:12 Last Infusion: 03/23/20 13:34 Dose: 0 mls/hr Documented by: [id number] Admin: 03/23/20 12:28 Dose: 100 mls/hr Documented by: [id number] Vancomycin HCl 1,250 mg/ (Sodium Chloride) 525 mls @ 200 mls/hr IV NOW ONE Stop: 03/23/20 13:50 Last Admin: 03/23/20 14:05 Dose: 175 mls/hr Documented by: [id number] Morphine Sulfate (Morphine Sulfate 4 Mg/Ml 1 Ml Carp\\Vial) 4 mg IV NOW STA Stop: 03/23/20 09:49 Last Admin: 03/23/20 10:10 Dose: 4 mg Documented by: [id number] Morphine Sulfate (Morphine Sulfate 4 Mg/Ml 1 Ml Carp\\Vial) 4 mg IV NOW STA Stop: 03/23/20 14:16 Last Admin: 03/23/20 14:20 Dose: 4 mg Documented by: [id number] Ondansetron HCl (Ondansetron Inj 2 Mg/Ml 2 Ml Vial) 4 mg IV NOW STA Stop: 03/23/20 09:49 Last Admin: 03/23/20 10:10 Dose: 4 mg Documented by: [id number] Medical Decision Making Laboratory Data Result diagrams: 03/23/20 10:07 03/23/20 10:07 Lab Results 03/23/20 03/23/20 03/23/20 Range/Units 09:54 09:54 10:03 WBC (4.8-10.8) K/uL RBC (4.7-6.1) M/uL Hgb (14.0-18.0) g/dL Hct (42-52) % MCV (80-100) fL MCH (25-34) pg MCHC (32-36) g/dL RDW Std Deviation (36.4-46.3) fL RDW Coeff of Adrianna (11.5-14.5) % Plt Count (130-400) K/uL MPV (7.4-10.4) fL Immature Gran % (Auto) % Neut % (Auto) % Lymph % (Auto) % Webb % (Auto) % Eos % (Auto) % Baso % (Auto) % Neut # (Auto) (1.4-6.5) K/uL Lymph # (Auto) (1.2-3.4) K/uL Webb # (Auto) (0.11-0.59) K/uL Eos # (Auto) (0-0.5) K/uL Baso # (Auto) (0-0.2) K/uL Immature Gran # (Auto) (0.00-0.02) K/uL PT (9.0-12.0) Seconds INR (0.9-1.1) APTT (21.0-31.0) Seconds PTT Ratio Sodium (136-145) mmol/L Potassium (3.5-5.1) mmol/L Chloride (98-107) mmol/L Carbon Dioxide (21-32) mmol/L Anion Gap (3-11) BUN (7-18) mg/dl Creatinine (0.6-1.4) mg/dl Est Cr Clr Drug Dosing ml/min Est GFR ( Amer) Est GFR (Non-Af Amer) BUN/Creatinine Ratio (10-20) Glucose (70-99) mg/dl Lactate 1.5 (0.4-2.0) mmol/L Calcium (8.5-10.1) mg/dl Magnesium (1.8-2.4) mg/dl Total Bilirubin (0.2-1) mg/dl AST (15-37) U/L ALT (12-78) U/L Alkaline Phosphatase (45-117) U/L Troponin I (0-0.045) ng/ml C-Reactive Protein (0-0.29) mg/dl Total Protein (6.4-8.2) gm/dl Albumin (3.4-5.0) gm/dl Globulin (2.5-4.0) gm/dl Albumin/Globulin Ratio (0.9-2) Beta-Hydroxybutyric Acd (0.2-2.81) mg/dl Procalcitonin (0-0.5) ng/ml TSH (0.300-4.500) uIu/ml Free T4 (0.8-1.6) ng/dl Urine Color Urine Appearance (Clear) Urine pH (4.5-7.5) Ur Specific [place] (1.000-1.030) Urine Protein (Negative) Urine Glucose (UA) (Negative) Urine Ketones (Negative) Urine Blood (Negative) Urine Nitrite (Negative) Urine Bilirubin (Negative) Urine Urobilinogen (Negative) Ur Leukocyte Esterase (Negative) Urine WBC (Auto) (0-5) /hpf Urine RBC (Auto) (0-4) /hpf U Hyaline Cast (Auto) (0-5) /lpf U Epithel Cells (Auto) (0-5) /lpf Urine Bacteria (Auto) (Negative) Urine Yeast COVID-19 Eval Order Cov[facility] SARS-CoV-2, RNA, NAAT NEGATIVE (NEGATIVE) 03/23/20 03/23/20 03/23/20 Range/Units 10:07 10:07 10:07 WBC 27.01 H (4.8-10.8) K/uL RBC 4.24 L (4.7-6.1) M/uL Hgb 12.4 L (14.0-18.0) g/dL Hct 36.7 L (42-52) % MCV 86.6 (80-100) fL MCH 29.2 (25-34) pg MCHC 33.8 (32-36) g/dL RDW Std Deviation 47.9 H (36.4-46.3) fL RDW Coeff of Adrianna 15.1 H (11.5-14.5) % Plt Count 232 (130-400) K/uL MPV 9.5 (7.4-10.4) fL Immature Gran % (Auto) 0.4 % Neut % (Auto) 81.0 % Lymph % (Auto) 14.9 % Webb % (Auto) 3.6 % Eos % (Auto) 0.1 % Baso % (Auto) 0.0 % Neut # (Auto) 21.87 H (1.4-6.5) K/uL Lymph # (Auto) 4.03 H (1.2-3.4) K/uL Webb # (Auto) 0.98 H (0.11-0.59) K/uL Eos # (Auto) 0.02 (0-0.5) K/uL Baso # (Auto) 0.01 (0-0.2) K/uL Immature Gran # (Auto) 0.10 H (0.00-0.02) K/uL PT 11.6 (9.0-12.0) Seconds INR 1.1 (0.9-1.1) APTT 31.0 (21.0-31.0) Seconds PTT Ratio 1.1 Sodium 134 L (136-145) mmol/L Potassium 4.7 (3.5-5.1) mmol/L Chloride 106 (98-107) mmol/L Carbon Dioxide 22 (21-32) mmol/L Anion Gap 6.0 (3-11) BUN 30 H (7-18) mg/dl Creatinine 2.47 H (0.6-1.4) mg/dl Est Cr Clr Drug Dosing 34.2 ml/min Est GFR ( Amer) 37.4 Est GFR (Non-Af Amer) 32.3 BUN/Creatinine Ratio 12.2 (10-20) Glucose 306 H* (70-99) mg/dl Lactate (0.4-2.0) mmol/L Calcium 9.1 (8.5-10.1) mg/dl Magnesium 1.4 L (1.8-2.4) mg/dl Total Bilirubin 2.0 H (0.2-1) mg/dl AST 9 L (15-37) U/L ALT 26 (12-78) U/L Alkaline Phosphatase 107 (45-117) U/L Troponin I < 0.015 (0-0.045) ng/ml C-Reactive Protein (0-0.29) mg/dl Total Protein 7.6 (6.4-8.2) gm/dl Albumin 3.5 (3.4-5.0) gm/dl Globulin 4.1 H (2.5-4.0) gm/dl Albumin/Globulin Ratio 0.9 (0.9-2) Beta-Hydroxybutyric Acd 1.02 (0.2-2.81) mg/dl Procalcitonin (0-0.5) ng/ml TSH 0.046 L (0.300-4.500) uIu/ml Free T4 1.17 (0.8-1.6) ng/dl Urine Color Urine Appearance (Clear) Urine pH (4.5-7.5) Ur Specific [place] (1.000-1.030) Urine Protein (Negative) Urine Glucose (UA) (Negative) Urine Ketones (Negative) Urine Blood (Negative) Urine Nitrite (Negative) Urine Bilirubin (Negative) Urine Urobilinogen (Negative) Ur Leukocyte Esterase (Negative) Urine WBC (Auto) (0-5) /hpf Urine RBC (Auto) (0-4) /hpf U Hyaline Cast (Auto) (0-5) /lpf U Epithel Cells (Auto) (0-5) /lpf Urine Bacteria (Auto) (Negative) Urine Yeast COVID-19 Eval Order SARS-CoV-2, RNA, NAAT (NEGATIVE) 03/23/20 03/23/20 03/23/20 Range/Units 10:07 10:07 10:07 WBC (4.8-10.8) K/uL RBC (4.7-6.1) M/uL Hgb (14.0-18.0) g/dL Hct (42-52) % MCV (80-100) fL MCH (25-34) pg MCHC (32-36) g/dL RDW Std Deviation (36.4-46.3) fL RDW Coeff of Adrianna (11.5-14.5) % Plt Count (130-400) K/uL MPV (7.4-10.4) fL Immature Gran % (Auto) % Neut % (Auto) % Lymph % (Auto) % Webb % (Auto) % Eos % (Auto) % Baso % (Auto) % Neut # (Auto) (1.4-6.5) K/uL Lymph # (Auto) (1.2-3.4) K/uL Webb # (Auto) (0.11-0.59) K/uL Eos # (Auto) (0-0.5) K/uL Baso # (Auto) (0-0.2) K/uL Immature Gran # (Auto) (0.00-0.02) K/uL PT (9.0-12.0) Seconds INR (0.9-1.1) APTT (21.0-31.0) Seconds PTT Ratio Sodium (136-145) mmol/L Potassium (3.5-5.1) mmol/L Chloride (98-107) mmol/L Carbon Dioxide (21-32) mmol/L Anion Gap (3-11) BUN (7-18) mg/dl Creatinine (0.6-1.4) mg/dl Est Cr Clr Drug Dosing ml/min Est GFR ( Amer) Est GFR (Non-Af Amer) BUN/Creatinine Ratio (10-20) Glucose (70-99) mg/dl Lactate (0.4-2.0) mmol/L Calcium (8.5-10.1) mg/dl Magnesium (1.8-2.4) mg/dl Total Bilirubin (0.2-1) mg/dl AST (15-37) U/L ALT (12-78) U/L Alkaline Phosphatase (45-117) U/L Troponin I (0-0.045) ng/ml C-Reactive Protein 9.48 H (0-0.29) mg/dl Total Protein (6.4-8.2) gm/dl Albumin (3.4-5.0) gm/dl Globulin (2.5-4.0) gm/dl Albumin/Globulin Ratio (0.9-2) Beta-Hydroxybutyric Acd (0.2-2.81) mg/dl Procalcitonin 0.76 H (0-0.5) ng/ml TSH (0.300-4.500) uIu/ml Free T4 (0.8-1.6) ng/dl Urine Color Yellow Urine Appearance Clear (Clear) Urine pH 5.0 (4.5-7.5) Ur Specific [place] 1.019 (1.000-1.030) Urine Protein Trace H (Negative) Urine Glucose (UA) 3+ H (Negative) Urine Ketones Negative (Negative) Urine Blood Negative (Negative) Urine Nitrite Negative (Negative) Urine Bilirubin Negative (Negative) Urine Urobilinogen Negative (Negative) Ur Leukocyte Esterase Negative (Negative) Urine WBC (Auto) 5-10 H (0-5) /hpf Urine RBC (Auto) 0-4 (0-4) /hpf U Hyaline Cast (Auto) 1-5 (0-5) /lpf U Epithel Cells (Auto) 10-20 H (0-5) /lpf Urine Bacteria (Auto) 1+ H (Negative) Urine Yeast Not Reportable COVID-19 Eval Order SARS-CoV-2, RNA, NAAT (NEGATIVE) Imaging Data Radiologist's Impression: XR chest 1V portable CLINICAL HISTORY: fever, bilat lung transplant COMPARISON STUDY: 12/08/2019 FINDINGS: Postsurgical changes are again evident. There is a right-sided A-Port catheter. There is been near complete interval clearing of the previously identified left lower lung zone airspace opacities. Now evident are right lower lung zone airspace opacity suspicious for a pneumonitis. There is persistent blunting of the right lateral costophrenic angle.[ IMPRESSION: 1. Right basilar airspace opacities suspicious for pneumonia. Clinical and radiographic follow-up is recommended. ACT 112: Negative or not required by law. Electronically signed by: Vin Castle M.D. 03/23/2020 10:40 AM MDM Narrative Patient was seen and evaluated as above in room A9. Review was performed of nursing notes and vital signs. I did review pertinent previous visits and alayna ent history. After obtaining a thorough history and physical examination the above work up was performed. Patient has an extensive history, most recent for that of lung transplant 4 years ago currently on several medications for such. Over the past 24 hours he has developed a fever, cough, shortness of breath, chest pain. Patient is currently being seen during the COVID-19 pandemic. Options of care were discussed. IV access established. Labs were drawn. EKG was obtained on arrival. EKG reveals sinus tachycardia at a rate of 36 bpm. There is no evidence of ST elevation. QTc is 423. Significant leukocytosis 27,000. Hemoglobin at 12.04. Patient sodium mildly low at 134. Creat 2.47. Which is similar to previous. Glucose 306. Magnesium 1.4. T bili 2.0. Troponin negative. Urinalysis concerning for possible UTI. Covid testing negative. Chest x-ray concerning for right basilar airspace opacity suspicious for pneumonia. Clinically this is likely what the patient is experiencing. It is felt that IV antibiotics were warranted. I reviewed previous visits and was noted to have received ceftazidime, vancomycin, Levaquin intravenously previously per recommendation from [facility]. I did speak with the patient's clinical coordinator and we agreed upon the antibiotics and she will reach out to the patient's senior scheduler. Patient remained hemodynamically stable throughout his stay time here in the ED. He was given IV analgesics. At this time I do believe that further evaluation and management is warranted in the inpatient setting. I did discuss patient presentation with his coordinator as well as his senior scheduler. Please refer to the discussions as listed below. Case discussed them with hospitalist. Please refer to further documentation regarding his stay. Phone communication: 11:09 AM: I did speak to the patient's transplant steam roller operator [place]. She will be reaching out to the patient's senior scheduler, Dr. Pan to see if the patient should be transferred versus stay here. In the meantime we agreed upon IV ceftazidime, IV vancomycin, IV Levaquin. Vancomycin is to be given with Benadryl and slowly to prevent "red man" syndrome noting patient history. 2:16 PM: I received a call from Dr. Pan. At this time it is felt the patient could be admitted here. He recommends sputum culture if the cough becomes productive. He recommends drawing a tacrolimus trough drug level tomorrow. He recommends keeping the patient on his immunosuppressants and the antibiotics as previously ordered. He would like to be notified of any change or question. Phone number provided at [phone] which is personal cell phone . He also recommended not blocking the patient and if this was felt to be needed he should be transferred down to their facility. He also does not feel a CT at this time is indicated unless we feel otherwise. While in the department, I personally reevaluated the patient several times and each time the patient was found to be resting comfortably. The patient was educated upon management, educated upon todays findings/results, educated upon importance of hospitalization, was amenable to staying and was admitted. Case was discussed with the attending physician. Patient was seen during the COVID-19 pandemic and Covid testing x1 here in the ED is negative. An order was placed for continuous cardiac monitoring. The monitor shows a rate of 104 with sinus rhythm. I attest that I have personally reviewed the patient medication list. GCS: 15 In the evaluation and treatment of this patient the following differential diagnoses were entertained: IN, PE, pericarditis, costochondritis, pneumonia, transplant rejection, COVID-19, myocarditis, dissection, among others. Impression & Plan Pneumonia, Lung transplant status, bilateral, Fever, Body aches Discharge Plan Visit Data Chief Complaint: Illness Stated Complaint: FEVER,BODY ACHES, CHEST TIGHTNESS ED Provider: Jose Ontiveros ED Midlevel Provider: Dickson Dill Discharge Problem: Pneumonia, Lung transplant status, bilateral, Fever, Body aches Patient Disposition: Admitted As Inpatient Condition: Good Forms Stand Alone Forms: My [facility] [place] [employer] Prescriptions Prescriptions: No Action Novolog U-100 Insulin aspart 100 unit/mL solution See Rx Instructions continuous subcutaneous infusion UD Qty: 30 RF: 5 valganciclovir 450 mg tablet 450 mg PO DAILY RF: 0 prednisone 5 mg tablet 5 mg PO QAM RF: 0 fexofenadine [Radha Allergy] 180 mg Tablet 180 mg PO QAM RF: 0 sulfamethoxazole-trimethoprim 800-160 mg tablet 0.5 tab PO 3XWK RF: 0 metoprolol tartrate 50 mg tablet 50 mg PO BID RF: 0 magnesium 250 mg Tablet 250 mg PO BID RF: 0 albuterol sulfate [Ventolin HFA] 90 mcg/actuation Hfa Aerosol Inhaler 2 puff INHALATION Q4H PRN (Reason: Shortness Of Breath Or Wheezing) RF: 0 ferrous sulfate 325 mg (65 mg iron) Tablet,Delayed Release (Dr/Ec) 325 mg PO BIDM RF: 0 tacrolimus 1 mg capsule 2 mg PO BID RF: 0 Zenpep 40,000-126,000- 168,000 unit Capsule,Delayed Release(Dr/Ec) 6 cap PO AC RF: 0 everolimus (immunosuppressive) [Zortress] 0.5 mg tablet 1.5 mg PO BID RF: 0 azithromycin 250 mg Tablet 250 mg PO 3XWK RF: 0 esomeprazole magnesium 40 mg capsule,delayed release(DR/EC) 40 mg PO BID RF: 0 ergocalciferol (vitamin D2) [Vitamin D2] 1,250 mcg (50,000 unit) capsule 50,000 unit PO DAILY RF: 0 acetaminophen [Tylenol] 325 mg Tablet 650 mg PO QID PRN (Reason: fever/pain) RF: 0 Referrals Referrals: Enrique Toscano MD [Primary Care Provider] -
[2020-03-23 10:21] LABS: Hematocrit (blood only) 36.7 % (42-52); Hemoglobin 12.4 g/dL (14.0-18.0); Mean Corpuscular Hemoglobin 29.2 pg (25-34); Mean Corpuscular Hgb Conc 33.8 g/dL (32-36); Mean Corpuscular Volume 86.6 fL (80-100); Mean Platelet Volume 9.5 fL (7.4-10.4); Platelet Count 232 K/uL (130-400); RDW Coefficient of Variation 15.1 % (11.5-14.5); RDW Standard Deviation 47.9 fL (36.4-46.3); Red Blood Count 4.24 M/uL (4.7-6.1); White Blood Count 27.01 K/uL (4.8-10.8)
[2020-03-23 10:38] LABS: Appearance Urine Clear (Clear); Bilirubin Urine Negative (Negative); Blood Urine Negative (Negative); Color Urine Yellow; Glucose Urine UA 3+ (Negative); Ketones Urine Negative (Negative); Leukocyte Esterase Urine Negative (Negative); Nitrite Urine Negative (Negative); Protein Urine Trace (Negative); RBC Urine Automated 0-4 /hpf (0-4); Specific Gravity Urine 1.019 (1.000-1.030); Urobilinogen Urine Negative (Negative)
[2020-03-23 10:40] LABS: INR 1.1 (0.9-1.1); Partial Thromboplastin Ratio 1.1; Prothrombin Time 11.6 Seconds (9.0-12.0)
[2020-03-23 10:41] LABS: Basophils # (auto) 0.01 K/uL (0-0.2); Eosinophils # (auto) 0.02 K/uL (0-0.5); Eosinophils % (auto) 0.1 %; Immature Granulocytes % (auto) 0.4 %; Lymphocytes # (auto) 4.03 K/uL (1.2-3.4); Lymphocytes % (auto) 14.9 %; Monocytes # (auto) 0.98 K/uL (0.11-0.59); Monocytes % (auto) 3.6 %; Neutrophils # (auto) 21.87 K/uL (1.4-6.5)
--- NOTE | 2020-03-23 10:41 | XRay Report ---
XR chest 1V portable CLINICAL HISTORY: fever, bilat lung transplant COMPARISON STUDY: 12/08/2019 FINDINGS: Postsurgical changes are again evident. There is a right-sided A-Port catheter. There is be en near complete interval clearing of the previously identified left lower lung zone airspace opaciti es. Now evident are right lower lung zone airspace opacity suspicious for a pneumonitis. There is per sistent blunting of the right lateral costophrenic angle.[ IMPRESSION: 1. Right basilar airspace opacities suspicious for pneumonia. Clinical and radiographic follow-up is recommended. ACT 112: Negative or not required by law. Electronically signed by: Vin Castle M.D. 03/23/2020 10:40 AM
[2020-03-23 10:58] LABS: Bacteria Urine Automated 1+ (Negative)
[2020-03-23] MEDS ORDERED: VANCOMYCIN CONSULT ACTIVE PRN ×2 (11:13→17:34)
[2020-03-23] MEDS ORDERED: levoFLOXacin/D5W 500 MG/100 ML BAG IV STA (11:13)
[2020-03-23] MEDS ORDERED: diphenhydrAMINE 50 MG/ML VIAL IV STA (11:13)
[2020-03-23] MEDS ORDERED: VANCOMYCIN HCL 1,250 MG in SODIUM CHLORIDE 0.9% 500 ML IV ONE (11:13)
[2020-03-23 11:16] LABS: Alanine Aminotransferase 26 U/L (12-78); Albumin Globulin Ratio 0.9 (0.9-2); Albumin Level 3.5 gm/dl (3.4-5.0); Alkaline Phosphatase 107 U/L (45-117); Aspartate Aminotransferase 9 U/L (15-37); BUN Creatinine Ratio 12.2 (10-20); Blood Urea Nitrogen 30 mg/dl (7-18); Calcium 9.1 mg/dl (8.5-10.1); Carbon Dioxide 22 mmol/L (21-32); Chloride 106 mmol/L (98-107); Creatinine Clr Calc Pharmacy 34.2 ml/min; Est GFR (African American) 37.4; Est GFR (Non-African American) 32.3; Globulin 4.1 gm/dl (2.5-4.0); Glucose 306 mg/dl (70-99); Magnesium 1.4 mg/dl (1.8-2.4); Potassium 4.7 mmol/L (3.5-5.1); Sodium 134 mmol/L (136-145); Total Protein 7.6 gm/dl (6.4-8.2)
[2020-03-23 11:23] LABS: Troponin I < 0.015 ng/ml (0-0.045)
[2020-03-23 11:42] LABS: Beta-Hydroxybutyrate 1.02 mg/dl (0.2-2.81); Thyroid Stimulating Hormone 0.046 uIu/ml (0.300-4.500)
[2020-03-23 12:08] LABS: T4 Free Thyroxine 1.17 ng/dl (0.8-1.6)
--- NOTE | 2020-03-23 12:48 | Electrocardiogram Report ---
Test Reason : Blood Pressure : / mmHG Vent. Rate : 104 BPM Atrial Rate : 104 BPM P-R Int : 134 ms QRS Dur : 086 ms QT Int : 322 ms P-R-T Axes : 074 -04 067 degrees QTc Int : 423 ms Poor data quality, interpretation may be adversely affected Sinus tachycardia Nonspecific ST abnormality Abnormal ECG When compared with ECG of 08-DEC-2019 14:46, No significant change was found Confirmed by Geoff Jorgensen ([id number]) on 03/23/2020 12:47:57 PM Referred By: Confirmed By:Geoff Jorgensen
[2020-03-23] MEDS ORDERED: diphenhydrAMINE 50 MG/ML VIAL ONE (13:45)
[2020-03-23] MEDS ORDERED: MAGNESIUM SULFATE / D5W 1 GM/100 ML BAG IV STA (16:19)
--- NOTE | 2020-03-23 16:46 | History & Physical Report ---
Date of Service March 23, 2020 Assessment & Plan (1) Pneumonia: (2) Lung transplant status, bilateral: (3) Cystic fibrosis: -Admit to telemetry -Patient presenting from home with reports of fever, body aches, chest tightness -History of cystic fibrosis s/p bilateral lung transplant in 2016 at [facility]. Follows with Dr. Pan ([phone]) -CXR shows right basilar pneumonia -Meets sepsis criteria: WBC 27K, tachycardic, febrile. BP stable, lactic acid 1.5 -COVID-19 testing negative. Retest in the morning. Keep patient as PUI. Currently not hypoxic therefore would not meet criteria for COVID-19 treatment. -Influenza A/B negative -Received recommendations from Dr. Pan at [facility] -IV ceftazidime, IV Levaquin, IV Vanco. Continue antirejection medications including prednisone 5 mg daily, tacrolimus, everolimus. Check tacrolimus trough in the morning. -Blood and sputum cultures (4) CKD (chronic kidney disease), stage III: -baseline creat high 1's - low 2's -2.4 today -monitor renal functions (5) Insulin dependent diabetes mellitus: -Hgb A1c 8.9 09/2019 -On insulin pump, patient able to manage (6) Hypomagnesemia: -MG +1.4 -Replace, follow electrolytes (7) DVT prophylaxis: -SQ heparin History of Present Illness Chief Complaint: Fever, body aches Primary Care Provider: Enrique Toscano MD 34-year-old male with PMH cystic fibrosis s/p bilateral lung transplant 2016, diabetes on insulin pump, and other problems listed below who presents the ED for evaluation of fever and body aches. Patient reports his symptoms began last evening. Reports having fever of 101.6 despite taking Tylenol. Patient also reports associated headache and myalgias of his legs. Reports a central chest tightness. Some mild shortness of breath. Denies cough and sputum production. Has had a very poor p.o. intake but denies nausea, vomiting, abdominal pain, diarrhea. No known contacts of COVID-19. Denies lightheadedness, dizziness, diaphoresis, syncopal events. No urinary symptoms. In the ED, CXR shows right basilar pneumonia. COVID-19 testing negative. WBC 27K, MG +1.4, creatinine 2.4 (seems to be close to baseline). Patient is saturating well on room air. 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 Patient was given IV ceftazidime, IV Levaquin, IV Vanco, IVF. 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 Allergies Allergy/AdvReac Type Severity Reaction Status Date / Time vancomycin Allergy Intermediate Red man Verified 03/23/20 10:27 syndrome Home Medications Medication Instructions Recorded Confirmed Type Zenpep 6 cap PO AC 08/10/18 03/23/20 History albuterol sulfate [Ventolin HFA] 2 puff INHALATION Q4H PRN 08/10/18 03/23/20 History ferrous sulfate 325 mg PO BIDM 08/10/18 03/23/20 History fexofenadine [Radha Allergy] 180 mg PO QAM 08/10/18 03/23/20 History magnesium 250 mg PO BID 08/10/18 03/23/20 History metoprolol tartrate 50 mg PO BID 08/10/18 03/23/20 History prednisone 5 mg PO QAM 08/10/18 03/23/20 History sulfamethoxazole-trimethoprim 0.5 tab PO 3XWK 08/10/18 03/23/20 History tacrolimus 2 mg PO DAILY 08/10/18 03/23/20 History valganciclovir 450 mg PO DAILY 08/10/18 03/23/20 History Novolog U-100 Insulin aspart 100 See Rx Instructions CONTINUOUS 04/23/19 03/23/20 Rx unit/mL subcutaneous solution SUBCUTANEOUS INFUSION UD #30 ml NS azithromycin 250 mg PO 3XWK 10/04/19 03/23/20 History esomeprazole magnesium 40 mg PO BID 10/04/19 03/23/20 History everolimus (immunosuppressive) 1.5 mg PO BID 10/04/19 03/23/20 History [Zortress] ergocalciferol (vitamin D2) 50,000 unit PO DAILY 12/08/19 03/23/20 History [Vitamin D2] acetaminophen [Tylenol] 650 mg PO QID PRN 03/23/20 03/23/20 History tacrolimus 2.5 mg PO HS 03/23/20 03/23/20 History Past Med/Surg History Medical History CKD (chronic kidney disease), stage III Cystic fibrosis (11/28/12) 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 GERD (gastroesophageal reflux disease) H/O testicular biopsy Insulin dependent diabetes mellitus Vitamin D deficiency Surgical History H/O inguinal hernia repair Lung transplant status, bilateral Social History Smoking Status: Never smoker Hx Alcohol Use: Yes Alcohol type: beer Hx Substance Use: No Preferred Language: [place] Communication Ability: Effective Service Line Bus 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 Required: No Beliefs That Will Affect Care: None Current Living Situation: Family Current Living Situation Comment: lives with dad Other Information That Helps Us Care for You: No Feels Safe at Home: Yes Safety Concerns: Feels Safe At This Time Assistive Devices: Glasses Review of Systems Review of Systems: ROS per HPI, all other systems reviewed and negative Physical Exam Constitutional: WD/WN, vitals as above Eyes: PERRL, conjunctivae normal, anicteric sclerae ENMT: external ear and nose normal, oropharynx normal Respiratory: normal respiratory effort; no respiratory distress Auscultation: + diminished lung sounds Cardiovascular: Rate/Rhythm: regular rhythm and + tachycardic (HR 90s) Vessels: normal peripheral pulses Extremities: no edema Gastrointestinal (Abdomen): normal bowel sounds, soft, nontender, no hepatosplenomegaly Musculoskeletal: no cyanosis or clubbing, extremities motor strength 5/5 No calf tenderness Skin: no rashes, warm and dry Neurologic: PERRL, EOMI, accommodation nl, no face palsy, no dysarthria Psychiatric: A+Ox3, euthymic affect Results & Data Results & Data ([facility]) Vital Signs (Past 12 Hours) Vital Signs Temp Pulse Resp BP Pulse Ox 03/23/20 16:00 106 H 19 124/77 95 03/23/20 15:30 104 H 17 119/77 95 03/23/20 15:00 99 H 12 127/77 95 03/23/20 14:31 99 H 20 95 03/23/20 14:30 100 H 23 121/83 95 03/23/20 14:01 102 H 13 94 03/23/20 14:00 100 H 16 111/71 94 03/23/20 13:31 102 H 18 94 03/23/20 13:30 101 H 18 118/74 95 03/23/20 13:01 99 H 20 94 03/23/20 13:00 104 H 18 106/67 94 03/23/20 12:31 104 H 15 93 03/23/20 12:30 102 H 18 121/62 93 03/23/20 12:01 103 H 16 92 03/23/20 12:00 103 H 16 113/65 92 03/23/20 11:31 107 H 18 95 03/23/20 11:30 101 H 20 124/80 95 03/23/20 11:01 106 H 18 96 03/23/20 11:00 104 H 20 132/88 94 03/23/20 10:31 107 H 18 93 03/23/20 10:30 107 H 16 137/86 95 03/23/20 10:23 108 H 17 95 03/23/20 10:18 108 H 20 143/88 H 94 03/23/20 10:17 107 H 20 95 03/23/20 10:15 108 H 18 143/88 H 94 03/23/20 09:29 37.5 C 111 H 22 115/74 95 Laboratory Results Short CBC 03/23/20 03/23/20 Range/Units 10:07 10:07 WBC 27.01 H (4.8-10.8) K/uL Hgb 12.4 L (14.0-18.0) g/dL Hct 36.7 L (42-52) % Plt Count 232 (130-400) K/uL Creatinine 2.47 H (0.6-1.4) mg/dl BMP 03/23/20 10:07 Sodium 134 L Potassium 4.7 Chloride 106 Carbon Dioxide 22 BUN 30 H Creatinine 2.47 H Glucose 306 H* Calcium 9.1 Cardiac Enzymes 03/23/20 Range/Units 10:07 Troponin I < 0.015 (0-0.045) ng/ml Liver Function 03/23/20 Range/Units 10:07 Total Bilirubin 2.0 H (0.2-1) mg/dl AST 9 L (15-37) U/L ALT 26 (12-78) U/L Alkaline Phosphatase 107 (45-117) U/L Albumin 3.5 (3.4-5.0) gm/dl Urine 03/23/20 Range/Units 10:07 Urine Color Yellow Urine Appearance Clear (Clear) Urine pH 5.0 (4.5-7.5) Ur Specific [place]ill 1.019 (1.000-1.030) Urine Protein Trace H (Negative) Urine Glucose (UA) 3+ H (Negative) Diagnostic Findings CXR IMPRESSION: 1. Right basilar airspace opacities suspicious for pneumonia. Clinical and radiographic follow-up is recommended. Code Status & VTE Plan VTE Prophylaxis Plan VTE Prophylaxis will be ordered: Yes Supervising Physician Co-Signing Physician Notes The patient is a 34-year-old man with a history of cystic fibrosis status post bilateral lung transplantation in 2016 who is currently on immunosuppressive therapy. He developed fevers and chills, headache and myalgias as well as a central chest tightness and some shortness of breath in the last couple of days. Work-up reveals evidence of pneumonia and Covid testing is negative. White blood cell count is 27 and he meet Sirs criteria. Sepsis is a possibility. 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 Double coverage of Pseudomonas was also undertaken with ceftazidime and Levaquin. This was continued on admission. Physical exam reveals clear lungs to auscultation bilaterally, a normal cardiac exam and an abdomen that is soft nontender and nondistended. The patient is overall ill-appearing, however. Continue with plan as above. DO Jhon
[2020-03-23 17:03] LABS: Influenza A virus by PCR Negative (Negative); Influenza B virus by PCR Negative (Negative)
[2020-03-23] MEDS ORDERED: levoFLOXacin/D5W 250 MG/50 ML BAG IV ONE (18:00)
[2020-03-23] MEDS: SODIUM CHLORIDE 0.9% 1000ML 1,000 ML IV SCH (18:07)
[2020-03-23] MEDS: ACETAMINOPHEN 325 MG TAB PO PRN ×2 (18:36→22:38)
[2020-03-23] MEDS: MAGNESIUM SULFATE / D5W 1 GM/100 ML BAG IV SCH ×3 (18:38→22:48)
[2020-03-23] MEDS: FERROUS SULFATE 325 MG TAB PO SCH (19:06)
[2020-03-23] MEDS: MAGNESIUM OXIDE 400 MG TAB PO SCH (20:23)
[2020-03-23] MEDS: METOPROLOL TARTRATE 50 MG TAB PO SCH (20:23)
[2020-03-23] MEDS: PANTOprazole 40 MG TAB PO SCH (20:23)
[2020-03-23] MEDS: HEPARIN SOD 5,000 UNIT/0.5 ML VIAL SQ SCH (20:25)
[2020-03-23] MEDS: TACROLIMUS 1 MG CAP PO SCH (21:41)
[2020-03-23] MEDS: TACROLIMUS 0.5 MG CAP PO SCH (21:43)
[2020-03-24] MEDS: SODIUM CHLORIDE 0.9% 1000ML 1,000 ML IV SCH ×2 (06:32→20:59)
[2020-03-24] MEDS: HEPARIN SOD 5,000 UNIT/0.5 ML VIAL SQ SCH ×4 (06:33→22:06)
[2020-03-24] MEDS: MAGNESIUM OXIDE 400 MG TAB PO SCH ×2 (08:16→21:48)
[2020-03-24] MEDS: TACROLIMUS 1 MG CAP PO SCH ×2 (08:17→21:08)
[2020-03-24] MEDS: FEXOFENADINE HCL 180 MG TAB PO SCH (08:19)
[2020-03-24] MEDS: FERROUS SULFATE 325 MG TAB PO SCH ×2 (08:19→18:04)
[2020-03-24] MEDS: ERGOCALCIFEROL 50,000 UNITS 1250 MCG CAP PO SCH (08:20)
[2020-03-24] MEDS: PANTOprazole 40 MG TAB PO SCH ×2 (08:20→21:48)
[2020-03-24] MEDS: predniSONE 5 MG TAB PO SCH (08:20)
[2020-03-24] MEDS: METOPROLOL TARTRATE 50 MG TAB PO SCH ×2 (08:20→21:48)
[2020-03-24] MEDS: EVEROLIMUS 0.5 MG PO SCH ×3 (08:23→21:02)
[2020-03-24] MEDS: [UNRECOGNIZED DRUG - OTHER] PO SCH ×2 (08:24→12:03)
[2020-03-24] MEDS: PROTEASE PO SCH ×2 (08:24→12:03)
[2020-03-24] MEDS: LIPASE PO SCH ×2 (08:24→12:03)
[2020-03-24] MEDS: AMYLASE PO SCH ×2 (08:24→12:03)
[2020-03-24] MEDS ORDERED: VALGANCICLOVIR 450 MG PO SCH (09:00)
[2020-03-24] MEDS ORDERED: FAMOTIDINE 20 MG TAB PO SCH (13:00)
[2020-03-24] MEDS ORDERED: diphenhydrAMINE Capsule 25 MG CAP PO SCH (13:00)
--- NOTE | 2020-03-24 13:13 | Hospitalist Progress Note ---
Date of Service March 24, 2020 Assessment & Plan (1) Pneumonia: (2) Lung transplant status, bilateral: (3) Cystic fibrosis: DC tele -Patient presenting from home with reports of fever, body aches, chest tightness -History of cystic fibrosis s/p bilateral lung transplant in 2016 at [facility]. Follows with Dr. Pan ([phone]) -CXR shows right basilar pneumonia -Meets sepsis criteria: WBC 27K, tachycardic, febrile. BP stable, lactic acid 1.5 -COVID-19 testing negative. Retest in the morning. Keep patient as PUI. Currently not hypoxic therefore would not meet criteria for COVID-19 treatment. -Influenza A/B negative -Received recommendations from Dr. Pan at [facility] -IV ceftazidime, IV Levaquin, IV Vanco. Continue antirejection medications including prednisone 5 mg daily, tacrolimus, everolimus. Check tacrolimus trough. -Blood and sputum cultures (4) CKD (chronic kidney disease), stage III: -baseline creat high 1's - low 2's -2.4 today -monitor renal functions (5) Insulin dependent diabetes mellitus: -Hgb A1c 8.9 09/2019 -On insulin pump, patient able to manage (6) Hypomagnesemia: -MG +1.4 -Replace, follow electrolytes (7) DVT prophylaxis: -SQ heparin Full Code, Labs Checked ROS-No Headache, No Visual Changes, No Nausea, No Vomiting, +Fever, +Chills, No Neck Pain or Stiffness, No Chest Pain, No Palpitations, + SOB, +PLATT, +Cough, +Sputum, No Wheezing, No Abdominal Pain, No Diarrhea, No Hematemesis, No Hemoptysis, No Unexpected Weight Loss, No Flank pain, No Melena, No Hematochezia, No Frequency, No Urgency, No Burning, No Hematuria, No Rashes, No Diaphoresis. Appetite is Normal, Weakness and Fatigue Physical Exam Gen-AAO x 3, NAD, Febrile Head-NCAT, EOMI, PERRLA, Anicteric Sclera, No Posterior Pharyngeal Erythema Neck-Supple, No JVD, No Thyromegaly, No Masses, No LAD, No Bruits Lungs-Clear to Auscultation Bilaterally, No Rales, No Rhonchi, No Wheezing, No Crepitus Chest-No S4, +S1, +S2, No S3, No Murmurs, No Rubs, No Gallops, No Ectopy Abdomen-Soft, Bowel Sounds Present, Non Tender, Non Distended, No Hepatomegaly, No Splenomegaly, No Palpable Masses, No Rebound, No Rigidity, No Guarding Musculoskeletal-Full Range of Motion Bilaterally, No CVAT Extremities-No Cyanosis, No Clubbing, No Edema Nuero-Cranial Nerves II-XII grossly intact, Motor WNL, DTRs WNL, Strength WNL, Non Focal Psych-Normal Mood Admission and Anticipated Discharge Date Admission Date: March 23, 2020 Results & Data Results & Data ([facility]) Vital Signs (Past 12 Hours) Vital Signs Temp Pulse Resp BP Pulse Ox 03/24/20 11:19 38 C H 94 H 18 107/69 98 03/24/20 07:50 37.7 C H 96 H 18 99/58 L 95 03/24/20 04:00 36.9 C 89 18 105/72 95
[2020-03-24] MEDS ORDERED: VANCOMYCIN HCL 1,000 MG in SODIUM CHLORIDE 0.9% 250 ML IV SCH (14:00)
[2020-03-24 17:21] LABS: Influenza A virus by PCR Negative (Neg); Influenza B virus by PCR Negative (Neg); RSV by PCR Negative (Neg); SARS CoV2 RNA(COVID-19) InHosp NEGATIVE (Negative)
[2020-03-24] MEDS: TACROLIMUS 0.5 MG CAP PO SCH (21:10)
[2020-03-24] MEDS ORDERED: HEPARIN 100 UNIT/ML 5ML FLUSH FLUSH PRN (22:58)
[2020-03-25 07:21] LABS: Albumin Globulin Ratio 0.6 (0.9-2); Albumin Level 2.4 gm/dl (3.4-5.0); BUN Creatinine Ratio 12.1 (10-20); Bilirubin,Total 0.9 mg/dl (0.2-1); Calcium 8.7 mg/dl (8.5-10.1); Creatinine Clr Calc Pharmacy 33.1 ml/min; Est GFR (African American) 35.7; Est GFR (Non-African American) 30.8; Globulin 4.2 gm/dl (2.5-4.0); Potassium 4.2 mmol/L (3.5-5.1); Total Protein 6.6 gm/dl (6.4-8.2)
[2020-03-25] MEDS: SODIUM CHLORIDE 0.9% 1000ML 1,000 ML IV SCH ×2 (07:51→20:18)
[2020-03-25] MEDS: VALGANCICLOVIR PO SCH (07:52)
[2020-03-25] MEDS: EVEROLIMUS 0.5 MG PO SCH ×2 (07:52→21:21)
[2020-03-25] MEDS: ERGOCALCIFEROL 50,000 UNITS 1250 MCG CAP PO SCH (07:54)
[2020-03-25] MEDS: FERROUS SULFATE 325 MG TAB PO SCH ×2 (07:54→16:19)
[2020-03-25] MEDS: FEXOFENADINE HCL 180 MG TAB PO SCH (07:54)
[2020-03-25] MEDS: TACROLIMUS 1 MG CAP PO SCH (07:54)
[2020-03-25] MEDS: predniSONE 5 MG TAB PO SCH (07:55)
[2020-03-25] MEDS: PANTOprazole 40 MG TAB PO SCH ×2 (07:55→20:16)
[2020-03-25] MEDS: MAGNESIUM OXIDE 400 MG TAB PO SCH ×2 (07:55→20:16)
[2020-03-25] MEDS: METOPROLOL TARTRATE 50 MG TAB PO SCH ×3 (07:56→20:15)
--- NOTE | 2020-03-25 10:53 | Hospitalist Progress Note ---
Date of Service March 25, 2020 Assessment & Plan (1) Pneumonia: (2) Lung transplant status, bilateral: (3) Cystic fibrosis: -Patient presenting from home with reports of fever, body aches, chest tightness -History of cystic fibrosis s/p bilateral lung transplant in 2016 at [facility]. Follows with Dr. Pan ([phone]) -CXR shows right basilar pneumonia -Meets sepsis criteria: WBC 27K, tachycardic, febrile. BP stable, lactic acid 1.5 -COVID-19 testing negative. Retest in the morning. Keep patient as PUI. Currently not hypoxic therefore would not meet criteria for COVID-19 treatment. -Influenza A/B negative -Received recommendations from Dr. Pan at [facility] -IV ceftazidime, IV Levaquin, IV Vanco. Continue antirejection medications including prednisone 5 mg daily, tacrolimus, everolimus. -Blood and sputum cultures Afebrile 24 hours now and feels a lot better, Tacrolimus Level elevated at 15.1, Hold until am (4) CKD (chronic kidney disease), stage III: -baseline creat high 1's - low 2's -2.4 today -monitor renal functions (5) Insulin dependent diabetes mellitus: -Hgb A1c 8.9 09/2019 -On insulin pump, patient able to manage (6) Hypomagnesemia: -MG +1.4 -Replace, follow electrolytes (7) DVT prophylaxis: -SQ heparin Full Code, Labs Checked DC 1-2 days ROS-No Headache, No Visual Changes, No Nausea, No Vomiting, +Fever, +Chills, No Neck Pain or Stiffness, No Chest Pain, No Palpitations, Less SOB, Less PLATT, Occas Cough, +Sputum, No Wheezing, No Abdominal Pain, No Diarrhea, No Hematemesis, No Hemoptysis, No Unexpected Weight Loss, No Flank pain, No Melena, No Hematochezia, No Frequency, No Urgency, No Burning, No Hematuria, No Rashes, No Diaphoresis. Appetite is Normal, Weakness and Fatigue Physical Exam Gen-AAO x 3, NAD, Afebrile 24 hrs now Head-NCAT, EOMI, PERRLA, Anicteric Sclera, No Posterior Pharyngeal Erythema Neck-Supple, No JVD, No Thyromegaly, No Masses, No LAD, No Bruits Lungs-Clear to Auscultation Bilaterally, No Rales, No Rhonchi, No Wheezing, No Crepitus Chest-No S4, +S1, +S2, No S3, No Murmurs, No Rubs, No Gallops, No Ectopy Abdomen-Soft, Bowel Sounds Present, Non Tender, Non Distended, No Hepatomegaly, No Splenomegaly, No Palpable Masses, No Rebound, No Rigidity, No Guarding Musculoskeletal-Full Range of Motion Bilaterally, No CVAT Extremities-No Cyanosis, No Clubbing, No Edema Nuero-Cranial Nerves II-XII grossly intact, Motor WNL, DTRs WNL, Strength WNL, Non Focal Psych-Normal Mood Admission and Anticipated Discharge Date Admission Date: March 23, 2020 Results & Data Results & Data ([facility]) Vital Signs (Past 12 Hours) Vital Signs Temp Pulse Resp BP Pulse Ox 03/25/20 07:23 36.8 C 80 20 119/58 L 95
[2020-03-25] MEDS ORDERED: levoFLOXacin/D5W 750 MG/150 ML BAG IV SCH (11:00)
[2020-03-25 11:21] LABS: Basophils # (auto) 0.01 K/uL (0-0.2); Basophils % (auto) 0.1 %; Eosinophils # (auto) 0.22 K/uL (0-0.5); Eosinophils % (auto) 1.6 %; Hemoglobin 10.4 g/dL (14.0-18.0); Immature Granulocytes # (auto) 0.07 K/uL (0.00-0.02); Immature Granulocytes % (auto) 0.5 %; Lymphocytes # (auto) 4.36 K/uL (1.2-3.4); Lymphocytes % (auto) 30.9 %; Mean Corpuscular Hemoglobin 28.5 pg (25-34); Mean Corpuscular Hgb Conc 32.5 g/dL (32-36); Mean Corpuscular Volume 87.7 fL (80-100); Mean Platelet Volume 9.7 fL (7.4-10.4); Monocytes # (auto) 0.68 K/uL (0.11-0.59); Monocytes % (auto) 4.8 %; Neutrophils # (auto) 8.78 K/uL (1.4-6.5); Neutrophils % (auto) 62.1 %; Platelet Count 230 K/uL (130-400); RDW Coefficient of Variation 15.2 % (11.5-14.5); RDW Standard Deviation 48.9 fL (36.4-46.3); Red Blood Count 3.65 M/uL (4.7-6.1); White Blood Count 14.12 K/uL (4.8-10.8)
[2020-03-25] MEDS: HEPARIN SOD 5,000 UNIT/0.5 ML VIAL SQ SCH ×2 (13:39→21:21)
[2020-03-25] MEDS ORDERED: LINEZOLID CONSULT ACTIVE PRN (17:37)
[2020-03-25] MEDS: LINEZOLID 600 MG/300 ML D5W IV SCH (18:52)
[2020-03-25] MEDS ORDERED: TACROLIMUS 1 MG CAP PO ONE (23:00)
[2020-03-26] MEDS ORDERED: LINEZOLID 600 MG/300 ML BAG IV SCH (06:00)
[2020-03-26] MEDS: HEPARIN SOD 5,000 UNIT/0.5 ML VIAL SQ SCH ×2 (06:07→13:51)
[2020-03-26] MEDS: LINEZOLID 600 MG/300 ML D5W IV SCH (06:07)
[2020-03-26] MEDS: METOPROLOL TARTRATE 50 MG TAB PO SCH (07:56)
[2020-03-26] MEDS: VALGANCICLOVIR PO SCH (07:56)
[2020-03-26] MEDS: SODIUM CHLORIDE 0.9% 1000ML 1,000 ML IV SCH (07:56)
[2020-03-26] MEDS: EVEROLIMUS 0.5 MG PO SCH (07:56)
[2020-03-26] MEDS: PANTOprazole 40 MG TAB PO SCH (07:57)
[2020-03-26] MEDS: FEXOFENADINE HCL 180 MG TAB PO SCH (07:57)
[2020-03-26] MEDS: FERROUS SULFATE 325 MG TAB PO SCH (07:57)
[2020-03-26] MEDS: predniSONE 5 MG TAB PO SCH (07:57)
[2020-03-26] MEDS: MAGNESIUM OXIDE 400 MG TAB PO SCH (07:57)
[2020-03-26] MEDS: ERGOCALCIFEROL 50,000 UNITS 1250 MCG CAP PO SCH (07:57)
[2020-03-26 08:18] LABS: Basophils # (auto) 0.01 K/uL (0-0.2); Basophils % (auto) 0.1 %; Eosinophils % (auto) 1.1 %; Hematocrit (blood only) 31.3 % (42-52); Hemoglobin 10.3 g/dL (14.0-18.0); Immature Granulocytes # (auto) 0.02 K/uL (0.00-0.02); Immature Granulocytes % (auto) 0.2 %; Lymphocytes # (auto) 3.26 K/uL (1.2-3.4); Lymphocytes % (auto) 34.6 %; Mean Corpuscular Hgb Conc 32.9 g/dL (32-36); Mean Corpuscular Volume 88.2 fL (80-100); Monocytes # (auto) 0.45 K/uL (0.11-0.59); Monocytes % (auto) 4.8 %; Neutrophils # (auto) 5.57 K/uL (1.4-6.5); Neutrophils % (auto) 59.2 %; Platelet Count 209 K/uL (130-400); RDW Coefficient of Variation 14.8 % (11.5-14.5); RDW Standard Deviation 48.1 fL (36.4-46.3); Red Blood Count 3.55 M/uL (4.7-6.1); White Blood Count 9.41 K/uL (4.8-10.8)
[2020-03-26 08:34] LABS: Albumin Level 2.2 gm/dl (3.4-5.0); BUN Creatinine Ratio 9.4 (10-20); Calcium 8.5 mg/dl (8.5-10.1); Creatinine Clr Calc Pharmacy 31.6 ml/min; Est GFR (African American) 33.8; Est GFR (Non-African American) 29.1; Potassium 4.4 mmol/L (3.5-5.1)
[2020-03-26 08:37] LABS: Albumin Globulin Ratio 0.5 (0.9-2); Bilirubin,Total 0.5 mg/dl (0.2-1); Globulin 4.4 gm/dl (2.5-4.0); Total Protein 6.6 gm/dl (6.4-8.2)
[2020-03-26] MEDS ORDERED: TACROLIMUS 0.5 MG CAP PO SCH (09:00)
--- NOTE | 2020-03-26 10:10 | Discharge Summary ---
Date of Service March 26, 2020 Admission HPI Per Admitting Provider 34-year-old male with PMH cystic fibrosis s/p bilateral lung transplant 2016, diabetes on insulin pump, and other problems listed below who presents the ED for evaluation of fever and body aches. Patient reports his symptoms began last evening. Reports having fever of 101.6 despite taking Tylenol. Patient also reports associated headache and myalgias of his legs. Reports a central chest tightness. Some mild shortness of breath. Denies cough and sputum production. Has had a very poor p.o. intake but denies nausea, vomiting, abdominal pain, diarrhea. No known contacts of COVID-19. Denies lightheadedness, dizziness, diaphoresis, syncopal events. No urinary symptoms. In the ED, CXR shows right basilar pneumonia. COVID-19 testing negative. WBC 27K, MG +1.4, creatinine 2.4 (seems to be close to baseline). Patient is saturating well on room air. 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 Patient was given IV ceftazidime, IV Levaquin, IV Vanco, IVF. 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 Admission Exam Per Admitting Provider Constitutional: WD/WN, vitals as above Eyes: PERRL, conjunctivae normal, anicteric sclerae ENMT: external ear and nose normal, oropharynx normal Respiratory: normal respiratory effort; no respiratory distress Auscu ltation: + diminished lung sounds Cardiovascular: Rate/Rhythm: regular rhythm and + tachycardic (HR 90s) Vessels: normal peripheral pulses Extremities: no edema Gastrointestinal (Abdomen): normal bowel sounds, soft, nontender, no hepatosplenomegaly Musculoskeletal: no cyanosis or clubbing, extremities motor strength 5/5 No calf tenderness Skin: no rashes, warm and dry Neurologic: PERRL, EOMI, accommodation nl, no face palsy, no dysarthria Psychiatric: A+Ox3, euthymic affect Principal Diagnosis (1) Pneumonia: (2) Lung transplant status, bilateral: (3) Cystic fibrosis: (4) CKD (chronic kidney disease), stage III: (5) Insulin dependent diabetes mellitus: (6) Hypomagnesemia: Discharge Exam See below Discharge Data Allergies Allergy/AdvReac Type Severity Reaction Status Date / Time vancomycin Allergy Intermediate Red man Verified 03/23/20 10:27 syndrome Consultations 03/23/20 14:38 ED Decision to Admit Stat 03/25/20 11:04 Consult Infectious Diseases Routine Current Diagnoses Hypomagnesemia (03/23/20) Cystic fibrosis, unspecified (03/23/20) Pneumonia, unspecified organism (03/23/20) Chronic kidney disease, stage 3 (moderate) (03/23/20) Encounter for prophylactic measures, unspecified (03/23/20) Lung transplant status (03/23/20) Allergies vancomycin Allergy (Intermediate, Verified 03/23/20 10:27) Red man syndrome Height/Weight/Isolation Height 5 ft 5 in Weight 58.9 kg Isolation Type Removed Precautions Chemistry 03/25/20 03/26/20 06:16 08:06 Sodium 142 D 140 Potassium 4.2 4.4 Chloride 113 H 112 H Carbon Dioxide 21 21 Anion Gap 7.0 6.0 BUN 31 H 25 H Creatinine 2.57 H 2.69 H Glucose 50 L* 227 H Microbiology 03/23/20 10:07 Urine,Clean Catch Urine Culture - Final Gardnerella-like bacilli 03/23/20 10:07 Blood Aerobic Blood Culture - Preliminary No growth in Aerobic bottle after 48 hours. 03/23/20 10:07 Blood Anaerobic Blood Culture - Preliminary No growth in Anaerobic bottle after 48 hours. 03/23/20 10:03 Blood Aerobic Blood Culture - Preliminary No growth in Aerobic bottle after 48 hours. 03/23/20 10:03 Blood Anaerobic Blood Culture - Preliminary No growth in Anaerobic bottle after 48 hours. Hospital Course (1) Pneumonia: (2) Lung transplant status, bilateral: (3) Cystic fibrosis: -Patient presenting from home with reports of fever, body aches, chest tightness -History of cystic fibrosis s/p bilateral lung transplant in 2016 at [facility]. Follows with Dr. Pan ([phone]) -CXR shows right basilar pneumonia -Meets sepsis criteria: WBC 27K, tachycardic, febrile. BP stable, lactic acid 1.5 -COVID-19 testing negative. Retest in the morning. Keep patient as PUI. Currently not hypoxic therefore would not meet criteria for COVID-19 treatment. -Influenza A/B negative -Received recommendations from Dr. Pan at [facility] -IV ceftazidime, IV Levaquin, IV Vanco. Continue antirejection medications including prednisone 5 mg daily, tacrolimus, everolimus. -Blood and sputum cultures Afebrile 48 hours now and feels a lot better, Tacrolimus Level elevated at 15.1, Now on 1.5 mg BID (4) CKD (chronic kidney disease), stage III: -baseline creat high 1's - low 2's (5) Insulin dependent diabetes mellitus: -Hgb A1c 8.9 09/2019 -On insulin pump, patient able to manage (6) Hypomagnesemia: -MG +1.4 -Replace, follow electrolytes (7) DVT prophylaxis: -SQ heparin Full Code, Labs Checked DC Home today and f/u c PCP and Dr Viviane Platt ROS-No Headache, No Visual Changes, No Nausea, No Vomiting, +Fever, +Chills, No Neck Pain or Stiffness, No Chest Pain, No Palpitations, Less SOB, Less PLATT, Occas Cough, +Sputum, No Wheezing, No Abdominal Pain, No Diarrhea, No Hematemesis, No Hemoptysis, No Unexpected Weight Loss, No Flank pain, No Melena, No Hematochezia, No Frequency, No Urgency, No Burning, No Hematuria, No Rashes, No Diaphoresis. Appetite is Normal, Weakness and Fatigue Physical Exam Gen-AAO x 3, NAD, Afebrile 48 hrs now Head-NCAT, EOMI, PERRLA, Anicteric Sclera, No Posterior Pharyngeal Erythema Neck-Supple, No JVD, No Thyromegaly, No Masses, No LAD, No Bruits Lungs-Clear to Auscultation Bilaterally, No Rales, No Rhonchi, No Wheezing, No Crepitus Chest-No S4, +S1, +S2, No S3, No Murmurs, No Rubs, No Gallops, No Ectopy Abdomen-Soft, Bowel Sounds Present, Non Tender, Non Distended, No Hepatomegaly, No Splenomegaly, No Palpable Masses, No Rebound, No Rigidity, No Guarding Musculoskeletal-Full Range of Motion Bilaterally, No CVAT Extremities-No Cyanosis, No Clubbing, No Edema Nuero-Cranial Nerves II-XII grossly intact, Motor WNL, DTRs WNL, Strength WNL, Non Focal Psych-Normal Mood Total Time Total Time Spent Total Time Spent (In Minutes): 45 min Total Time Includes: Examination of the Patient, Discharge Planning, Medication Reconciliation and Communication With Other Providers Discharge Plan Discharge Items Patient Disposition: Home - Home Health Services Reason For Visit: PNEUMONIA Discharge Diagnosis: (1) Pneumonia: (2) Lung transplant status, bilateral: (3) Cystic fibrosis: (4) CKD (chronic kidney disease), stage III: (5) Insulin dependent diabetes mellitus: (6) Hypomagnesemia: Condition on Discharge: Good Activity: Resume your previous activity Lifting: Gradually increase as tolerated Bathing: No limitations Sexual Activity: When tolerated Exercise/Sports: Gradually increase as tolerated Driving/Machine Use: No limitations Weightbearing: Full weightbearing Non-emergency contact: Primary Care Provider and Geriatric Nurse Call non-emergency contact if: you have any medication questions Follow-up/Referrals: Enrique Toscano MD [Primary Care Provider] - (Date & Time 03/30/2020 11:20 AM Provider Enrique Toscano MD Department Also follow up Pulmonary Dr Pan as well [facility] ) Diet: Carb Count or DM1 Addtl Attending Provider Instructions: Take antibiotics as directed Pending Studies at Discharge: No Stand-Alone Forms: My [employer], Smoking Cessation Medications and DC Order Prescriptions: New linezolid [Zyvox] 600 mg tablet 600 mg PO BID 10 Days Qty: 20 RF: 0 levofloxacin 500 mg tablet 500 mg PO DAILY 10 Days Qty: 10 RF: 0 everolimus (immunosuppressive) [Zortress] 0.25 mg Tablet 2 dose PO QAM Qty: 60 RF: 0 everolimus (immunosuppressive) [Zortress] 0.25 mg Tablet 3 dose PO QPM Qty: 90 RF: 0 ceftazidime 1 gram recon soln 2 g IV Q12H Qty: 20 RF: 0 Continued Novolog U-100 Insulin aspart 100 unit/mL solution See Rx Instructions continuous subcutaneous infusion UD Qty: 30 RF: 5 valganciclovir 450 mg tablet 450 mg PO DAILY RF: 0 prednisone 5 mg tablet 5 mg PO QAM RF: 0 fexofenadine [Radha Allergy] 180 mg Tablet 180 mg PO QAM RF: 0 metoprolol tartrate 50 mg tablet 50 mg PO BID RF: 0 magnesium 250 mg Tablet 250 mg PO BID RF: 0 albuterol sulfate [Ventolin HFA] 90 mcg/actuation Hfa Aerosol Inhaler 2 puff INHALATION Q4H PRN (Reason: Shortness Of Breath Or Wheezing) RF: 0 ferrous sulfate 325 mg (65 mg iron) Tablet,Delayed Release (Dr/Ec) 325 mg PO BIDM RF: 0 Zenpep 40,000-126,000- 168,000 unit Capsule,Delayed Release(Dr/Ec) 6 cap PO AC RF: 0 everolimus (immunosuppressive) [Zortress] 0.5 mg tablet 1.5 mg PO BID RF: 0 azithromycin 250 mg Tablet 250 mg PO 3XWK RF: 0 esomeprazole magnesium 40 mg capsule,delayed release(DR/EC) 40 mg PO BID RF: 0 ergocalciferol (vitamin D2) [Vitamin D2] 1,250 mcg (50,000 unit) capsule 50,000 unit PO DAILY RF: 0 acetaminophen [Tylenol] 325 mg Tablet 650 mg PO QID PRN (Reason: fever/pain) RF: 0 Discontinued sulfamethoxazole-trimethoprim 800-160 mg tablet 0.5 tab PO 3XWK RF: 0 tacrolimus 1 mg capsule 2 mg PO DAILY RF: 0 tacrolimus 1 mg capsule 2.5 mg PO HS RF: 0 Discharge Orders: Discharge Order (Routine); Ordered 03/26/20 Ordered By: Arcenio Dixon Admission Data Admit Date/Time: 03/23/20 15:30 Attending Provider: Arcenio Dixon Admit Provider: Paulette Ferreira Primary Care Provider: Enrique Toscano Other Providers: Paulette Ferreira ; Kostas Perez ; Bhumika Valencia ; Paul Honeycutt I. ; Cipriano Heck II ; Afsaneh Sosa ; Mal Skinner
== END 2020-03-26 15:42 | disposition home or self-care (01) | DRG 871 ==
LOC: ED 09:19 → SUATTDRO 15:30 → 2S 15:30 → 2W 03-24 18:49

== ENCOUNTER 2022-08-10 05:11 | Inpatient (IN) ==
[2022-08-10 05:57] LABS: Basophils # (auto) 0.05 K/uL (0-0.2); Basophils % (auto) 0.3 %; Eosinophils # (auto) 0.27 K/uL (0-0.50); Eosinophils % (auto) 1.6 %; Hematocrit (blood only) 36.5 % (42.0-52.0); Hemoglobin 11.7 g/dl (14.0-18.0); Immature Granulocytes # (auto) 0.11 K/uL (0.01-0.20); Immature Granulocytes % (auto) 0.6 %; Lymphocytes # (auto) 1.83 K/uL (1.2-3.4); Lymphocytes % (auto) 10.6 %; Mean Corpuscular Hemoglobin 28.6 pg (25.0-34.0); Mean Corpuscular Hgb Conc 32.1 g/dL (32.0-36.0); Mean Corpuscular Volume 89.2 fL (80.0-100.0); Monocytes # (auto) 0.99 K/uL (0.11-0.59); Monocytes % (auto) 5.8 %; Neutrophils # (auto) 13.94 K/uL (1.40-6.50); Neutrophils % (auto) 81.1 %; Platelet Count 283 K/uL (130-400); RDW Coefficient of Variation 14.8 % (11.5-14.5); RDW Standard Deviation 48.2 fL (36.4-46.3); Red Blood Count 4.09 M/uL (4.70-6.10); White Blood Count 17.19 K/ul (4.8-10.8)
[2022-08-10 06:05] LABS: Alanine Aminotransferase 27 U/L (7-52); Albumin Level 3.2 gm/dl (3.4-5.0); Alkaline Phosphatase 104 U/L (34-104); Anion Gap 6 (3-11); Aspartate Aminotransferase 19 U/L (13-39); BUN Creatinine Ratio 13.3 (10-20); Bilirubin,Total 1.4 mg/dl (0.2-1.0); Blood Urea Nitrogen 27 mg/dl (6-23); Calcium 7.6 mg/dl (8.6-10.3); Carbon Dioxide 22 mmol/L (21-32); Chloride 110 mmol/L (98-107); Creatinine Clr Calc Pharmacy 38.1 ml/min; Est GFR (African American) 46.5 ml/min; Est GFR (Non-African American) 40.1 ml/min; Globulin 3.1 gm/dl (2.5-4.0); Glucose 90 mg/dl (70-99(Fasting)); Lipase < 3 U/L (11-82); Potassium 4.1 mmol/L (3.5-5.1); Sodium 138 mmol/L (136-145); Total Protein 6.3 gm/dl (6.0-8.3)
--- NOTE | 2022-08-10 06:32 | CT Scan Report ---
CT OF THE ABDOMEN AND PELVIS WITHOUT CONTRAST CLINICAL HISTORY: Right lower quadrant pain. Nausea. COMPARISON STUDY: CT of the abdomen and pelvis August 10, 2018. Right upper quadrant ultrasound October 04, 2019. TECHNIQUE: Axial images of the abdomen and pelvis were obtained without IV contrast. Images were revi ewed in the axial, sagittal, and coronal planes. Automated exposure control was utilized for the hugh dy. A dose lowering technique was utilized adhering to the principles of ALARA. FINDINGS: A moderate-sized hiatal hernia with partially intrathoracic stomach is present. There is a small amount of ascites within the hernia. Subpleural reticulation and groundglass opacities within t he lower lungs are noted. There is no pneumatosis, free air or portal venous gas. Evaluation of the a bdomen and pelvis is suboptimal on this unenhanced examination. Unenhanced images of the liver, splee n and adrenal glands are unremarkable. There is fatty atrophy of the pancreas. No biliary or pancreat ic ductal dilatation is present. There is no evidence for acute appendicitis. There is moderate wall thickening of numerous small bowel loops. The wall appears edematous. There is associated mesenteric stranding and a small amount of ascites. Several small bowel loops are mildly dilated and fluid-fille d as well. A well-defined transition point is not identified. The right colon is also mildly dilated. There is a moderate amount of stool within the colon. No colonic transition point is identified. The re is no fluid collection. Mild bladder wall thickening is unchanged. There is trace ascites within t he pelvis. No acute fractures are present. There is no lymphadenopathy. Small bilateral renal calculi are noted. These measure up to 4 mm. There are no ureteral calculi. There is no hydronephrosis. IMPRESSION: 1. Edematous wall thickening of numerous small bowel loops as well as mild wall thickening of the rig ht colon with associated mesenteric stranding and a small amount of ascites. In addition, multiple sm all bowel loops are mildly dilated and fluid-filled raising the possibility of a partial small bowel obstruction although no discrete contusion point. The findings represent a nonspecific enterocolitis however distal intestinal obstruction syndrome is a consideration given cystic fibrosis. 2. No evidence for acute appendicitis. 3. Bilateral nephrolithiasis. No ureteral calculi. No hydronephrosis. 4. Mild bladder wall thickening, unchanged. 5. Fatty atrophy of the pancreas consistent with cystic fibrosis. ACT 112: Negative or not required by law. Electronically signed by: Jerome Zhang M.D. 08/10/2022 6:30 AM
[2022-08-10] MEDS ORDERED: SODIUM CHLORIDE 0.9% 1000ML 1,000 ML IV ONE (06:42)
[2022-08-10] MEDS ORDERED: ONDANSETRON INJ 2 MG/ML 2 ML VIAL IV STA (06:42)
[2022-08-10] MEDS ORDERED: MoRPHine SULFATE 10 MG/ML CARP/VIAL IV STA (06:42)
--- NOTE | 2022-08-10 06:42 | Emergency Department Note ---
Impression & Plan Partial obstruction of small intestine, Abdominal pain, Leukocytosis ED Provider Note NAME: KENNEDI ROBERTSON AGE: 37 SEX: M : 1985 ARRIVES VIA: Walk-In INFORMANT: Patient ED PROVIDER(S): Dickson Lucas DO CHIEF COMPLAINT: abdominal pain HPI: Patient is a 37-year-old gentleman with a past medical history of cystic fibrosis and previous lung transplant down in [place] with diabetes and CKD that presents to the ER for abdominal pain which started yesterday associate with nausea vomiting. He notes he did have a small bowel movement earlier yesterday. He believes he is still passing a small amount of gas. He notes this feels like his previous bowel obstructions. Does have a previous surgery which includes a hernia and Hang. He denies any headache or change in vision. No new cough congestion or fevers. He has felt a little cold with the abdominal pain. No dysuria urgency or frequency. No other exacerbating remitting factors. PAST MEDICAL HISTORY:See Below PAST SURGICAL HISTORY:See Below FAMILY HISTORY:See Below SOCIAL HISTORY:See Below HOME MEDICATIONS:See Below ALLERGIES:See Below VITALS:See Below PHYSICAL EXAMINATION: GENERAL: Sitting up in bed, alert, well appearing, well nourished, no distress, non-toxic EYE EXAM: normal conjunctiva. OROPHARYNX: no exudate, no erythema, lips, buccal mucosa, and tongue normal and mucous membranes are moist NECK: supple, no nuchal rigidity, no adenopathy, non-tender LUNGS: Clear to auscultation. Normal chest wall mechanics HEART: no murmurs, S1 normal and S2 normal ABDOMEN: abdomen soft, mild diffuse tenderness, normo-active bowel sounds, no masses, no rebound or guarding. UPPER EXTREMITIES: upper extremities are grossly normal. LOWER EXTREMITIES: No pitting edema. NEURO EXAM: Normal sensorium, cranial nerves II-XII grossly intact, normal speech, no gross weakness of arms, no gross weakness of legs. MEDICAL DECISION MAKING: Patient is a 37-year-old gentleman with a previous lung transplant and cystic fibrosis who presents to the ER for abdominal pain nausea and vomiting. IV was established blood work is obtained. External records reviewed. Labs show leukocytosis 17,000. Mild anemia 11.7. BMP with a creatinine of 2 which is fairly consistent with his baseline. T. bili at 1.4. Lipase was normal. COVID was negative. He was given Zofran and morphine and fluids. CT abdomen pelvis suggested a questionable partial small bowel obstruction. He does have tenderness and symptoms to be consistent with this and consequently he was discussed with the hospitalist as well as general surgery for further evaluation management and treatment. Triage Nursing notes reviewed. Limited review of prior medical records performed Vital Signs: reviewed and remarkable for tachy Differential diagnosis: Differential diagnoses includes but is not limited to gastritis, peptic ulcer disease, GERD, gallbladder disease, pancreatitis, small bowel obstruction, appendicitis, diverticulitis, hernia, urinary tract infection, torsion, perf oration, trauma, infectious. ER treatment provided: See below Diagnostics interpreted by me include EKG and cardiac monitoring as listed below: -Cardiac Monitoring: An order was placed for continuous cardiac monitoring. The monitor shows a rate of 100 with sinus rhythm. -ECG: none -Laboratory studies:Interpreted by me as stated above in MDM and shown below. Imaging studies: Xrays: As interpreted by me:none CTs show: CT abdomen pelvis as described above by radiology CT abdomen pelvis shows multiple dilated loops of bowel per my read Consultation(s): As described in MDM. Discussed with Lizzette from general surgery who recommended admission to the hospitalist and they will evaluate Discussed with Dr. 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 History of Hang fundoplication Laparoscopic hang, done in [place] Lung transplant status, bilateral 5 1/2 years ago, [facility] in [place] Social History Smoking Status: Never smoker Second Hand Exposure: No; Do You Dip or Chew Tobacco: No; Hx Alcohol Use: Yes Alcohol type: beer, wine and hard liquor Hx Substance Use: No Preferred Language: Peruvian Communication Ability: Effective Scruff Worker Required: No Beliefs That Will Affect Care: None Current Living Situation: Parent Current Living Situation Comment: lives with dad Feels Safe at Home: Yes Assistive Devices: Glasses Allergies Allergies Allergy/AdvReac Type Severity Reaction Status Date / Time vancomycin Allergy Intermediate Red man Verified 10/19/21 12:09 syndrome Home Meds Home Medications Medication Instructions Recorded Confirmed albuterol sulfate 90 mcg/actuation 2 puff inhalation Q4H PRN 08/10/18 08/10/22 aerosol inhaler (Ventolin HFA) Shortness Of Breath Or Wheezing ferrous sulfate 325 mg (65 mg 325 mg PO BID 08/10/18 08/10/22 iron) tablet,delayed release fexofenadine 180 mg tablet 180 mg PO QAM 08/10/18 08/10/22 (Radha Allergy) [id number] 1 - 6 cap PO UD 08/10/18 08/10/22 40,000-126,000-168,000 unit capsule, delay rel (Zenpep) magnesium 250 mg tablet 250 mg PO BID 08/10/18 08/10/22 metoprolol tartrate 50 mg tablet 50 mg PO BID 08/10/18 08/10/22 prednisone 5 mg tablet 5 mg PO QAM 08/10/18 08/10/22 valganciclovir 450 mg tablet 450 mg PO DAILY 08/10/18 08/10/22 everolimus (immunosuppressive) 0.5 1 mg PO BID 10/04/19 08/10/22 mg tablet (Zortress) acetaminophen 325 mg tablet 650 mg PO Q6H PRN fever/pain 03/23/20 08/10/22 (Tylenol) tacrolimus 1 mg capsule, 2 mg PO BID 10/13/21 08/10/22 immediate-release ergocalciferol (vitamin D2) 1,250 1,250 mcg PO DAILY 10/16/21 08/10/22 mcg (50,000 unit) capsule (Vitamin D2) Previous Rx's Medication Instructions Recorded blood sugar diagnostic (Accu-Chek #500 ea 04/08/20 Guide test strips) Novolog U-100 Insulin aspart 100 See Rx Instructions continuous 11/28/21 unit/mL subcutaneous solution subcutaneous infusion UD 90 days (insulin aspart U-100) #90 mL Results & Data (ED) Vital Signs Vital Signs - 24 hr 08/10/22 05:14 08/10/22 05:54 08/10/22 08:06 Temperature 36.8 C Temperature Source Temporal Artery Scan Pulse Rate 105 H 106 H Pulse Rate [Apical] 98 H Respiratory Rate 20 18 Respiratory Effort / Characteristics Non-Labored Spontaneous Non-Labored Spontaneous Respiratory Depth Normal Normal Blood Pressure 129/88 Blood Pressure [Right Arm] 109/69 Blood Pressure Mean 101 Blood Pressure Mean [Right Arm] 82 Blood Pressure Position Sitting Pulse Oximetry 98 94 Oxygen Delivery Method Room Air Room Air Sepsis Recent Fever Within 48 Hours No Sepsis New/Unexplained Change in Mental Status N/A Sepsis Action Taken by Nursing No Action Required Laboratory Data 08/10/22 05:25 08/10/22 05:25 Lab Results 08/10/22 08/10/22 08/10/22 Range/Units 05:25 05:25 06:35 WBC 17.19 H (4.8-10.8) K/ul RBC 4.09 L (4.70-6.10) M/uL Hgb 11.7 L (14.0-18.0) g/dl Hct 36.5 L (42.0-52.0) % MCV 89.2 (80.0-100.0) fL MCH 28.6 (25.0-34.0) pg MCHC 32.1 (32.0-36.0) g/dL RDW Std Deviation 48.2 H (36.4-46.3) fL RDW Coeff of Adrianna 14.8 H (11.5-14.5) % Plt Count 283 (130-400) K/uL MPV 9.0 L (9.4-12.4) fL Immature Gran % (Auto) 0.6 % Neut % (Auto) 81.1 % Lymph % (Auto) 10.6 % Davison % (Auto) 5.8 % Eos % (Auto) 1.6 % Baso % (Auto) 0.3 % Neut # (Auto) 13.94 H (1.40-6.50) K/uL Lymph # (Auto) 1.83 (1.2-3.4) K/uL Davison # (Auto) 0.99 H (0.11-0.59) K/uL Eos # (Auto) 0.27 (0-0.50) K/uL Baso # (Auto) 0.05 (0-0.2) K/uL Immature Gran # (Auto) 0.11 (0.01-0.20) K/uL Sodium 138 (136-145) mmol/L Potassium 4.1 (3.5-5.1) mmol/L Chloride 110 H (98-107) mmol/L Carbon Dioxide 22 (21-32) mmol/L Anion Gap 6 (3-11) BUN 27 H (6-23) mg/dl Creatinine 2.03 H (0.6-1.4) mg/dl Est Cr Clr Drug Dosing 38.1 ml/min Est GFR ( Amer) 46.5 ml/min Est GFR (Non-Af Amer) 40.1 ml/min BUN/Creatinine Ratio 13.3 (10-20) Glucose 90 (70-99(Fasting)) mg/dl Lactate 1.1 (0.4-2.0) mmol/L Calcium 7.6 L (8.6-10.3) mg/dl Total Bilirubin 1.4 H (0.2-1.0) mg/dl AST 19 (13-39) U/L ALT 27 (7-52) U/L Alkaline Phosphatase 104 (34-104) U/L Total Protein 6.3 (6.0-8.3) gm/dl Albumin 3.2 L (3.4-5.0) gm/dl Globulin 3.1 (2.5-4.0) gm/dl Albumin/Globulin Ratio 1.0 (0.9-2) Lipase < 3 L (11-82) U/L SARS-CoV-2, RNA, NAAT (NEGATIVE) 08/10/22 Range/Units Unknown WBC (4.8-10.8) K/ul RBC (4.70-6.10) M/uL Hgb (14.0-18.0) g/dl Hct (42.0-52.0) % MCV (80.0-100.0) fL MCH (25.0-34.0) pg MCHC (32.0-36.0) g/dL RDW Std Deviation (36.4-46.3) fL RDW Coeff of Adrianna (11.5-14.5) % Plt Count (130-400) K/uL MPV (9.4-12.4) fL Immature Gran % (Auto) % Neut % (Auto) % Lymph % (Auto) % Davison % (Auto) % Eos % (Auto) % Baso % (Auto) % Neut # (Auto) (1.40-6.50) K/uL Lymph # (Auto) (1.2-3.4) K/uL Davison # (Auto) (0.11-0.59) K/uL Eos # (Auto) (0-0.50) K/uL Baso # (Auto) (0-0.2) K/uL Immature Gran # (Auto) (0.01-0.20) K/uL Sodium (136-145) mmol/L Potassium (3.5-5.1) mmol/L Chloride (98-107) mmol/L Carbon Dioxide (21-32) mmol/L Anion Gap (3-11) BUN (6-23) mg/dl Creatinine (0.6-1.4) mg/dl Est Cr Clr Drug Dosing ml/min Est GFR ( Amer) ml/min Est GFR (Non-Af Amer) ml/min BUN/Creatinine Ratio (10-20) Glucose (70-99(Fasting)) mg/dl Lactate (0.4-2.0) mmol/L Calcium (8.6-10.3) mg/dl Total Bilirubin (0.2-1.0) mg/dl AST (13-39) U/L ALT (7-52) U/L Alkaline Phosphatase (34-104) U/L Total Protein (6.0-8.3) gm/dl Albumin (3.4-5.0) gm/dl Globulin (2.5-4.0) gm/dl Albumin/Globulin Ratio (0.9-2) Lipase (11-82) U/L SARS-CoV-2, RNA, NAAT NEGATIVE (NEGATIVE) Administered Medications Discontinued Medications Sodium Chloride (Nss 1000ml) 1,000 mls @ 999 mls/hr IV .Q1H1M ONE Stop: 08/10/22 07:42 Last Admin: 08/10/22 06:47 Dose: 999 mls/hr Documented By: MARLEN Morphine Sulfate (Morphine Sulfate 10 Mg/Ml Carp/Vial) 6 mg IV NOW STA Stop: 08/10/22 06:43 Last Admin: 08/10/22 06:46 Dose: 6 mg Documented By: MARLEN Ondansetron HCl (Ondansetron Inj 2 Mg/Ml 2 Ml Vial) 4 mg IV NOW STA Stop: 08/10/22 06:43 Last Admin: 08/10/22 06:46 Dose: 4 mg Documented By: MARLEN Imaging Data Radiologist's Impression: Abdomen/Pelvis CT 08/10/22 05:20 CT OF THE ABDOMEN AND PELVIS WITHOUT CONTRAST CLINICAL HISTORY: Right lower quadrant pain. Nausea. COMPARISON STUDY: CT of the abdomen and pelvis August 10, 2018. Right upper quadrant ultrasound October 04, 2019. TECHNIQUE: Axial images of the abdomen and pelvis were obtained without IV contrast. Images were reviewed in the axial, sagittal, and coronal planes. Automated exposure control was utilized for the study. A dose lowering technique was utilized adhering to the principles of ALARA. FINDINGS: A moderate-sized hiatal hernia with partially intrathoracic stomach is present. There is a small amount of ascites within the hernia. Subpleural reticulation and groundglass opacities within the lower lungs are noted. There is no pneumatosis, free air or portal venous gas. Evaluation of the abdomen and pelvis is suboptimal on this unenhanced examination. Unenhanced images of the liver, spleen and adrenal glands are unremarkable. There is fatty atrophy of the pancreas. No biliary or pancreatic ductal dilatation is present. There is no evidence for acute appendicitis. There is moderate wall thickening of numerous small bowel loops. The wall appears edematous. There is associated mesenteric stranding and a small amount of ascites. Several small bowel loops are mildly dilated and fluid-filled as well. A well-defined transition point is not identified. The right colon is also mildly dilated. There is a moderate amount of stool within the colon. No colonic transition point is identified. There is no fluid collection. Mild bladder wall thickening is unchanged. There is trace ascites within the pelvis. No acute fractures are present. There is no lymphadenopathy. Small bilateral renal calculi are noted. These measure up to 4 mm. There are no ureteral calculi. There is no hydronephrosis. IMPRESSION: 1. Edematous wall thickening of numerous small bowel loops as well as mild wall thickening of the right colon with associated mesenteric stranding and a small amount of ascites. In addition, multiple small bowel loops are mildly dilated and fluid-filled raising the possibility of a partial small bowel obstruction although no discrete contusion point. The findings represent a nonspecific e nterocolitis however distal intestinal obstruction syndrome is a consideration given cystic fibrosis. 2. No evidence for acute appendicitis. 3. Bilateral nephrolithiasis. No ureteral calculi. No hydronephrosis. 4. Mild bladder wall thickening, unchanged. 5. Fatty atrophy of the pancreas consistent with cystic fibrosis. ACT 112: Negative or not required by law. Electronically signed by: Jerome Zhang M.D. 08/10/2022 6:30 AM Discharge Plan Visit Data Chief Complaint: Abdominal Pain Stated Complaint: SEVERE ABDOMINAL PAIN-POSS BOWEL OBSTRUCTION ED Provider: Dickson Lucas Discharge Problem: Partial obstruction of small intestine, Abdominal pain, Leukocytosis Forms Stand Alone Forms: [facility] Prescriptions Prescriptions: No Action (DME) Accu-Chek Guide test strips Strip See Rx Instructions .ROUTE .MEDSUPPLY Qty: 500 3RF Rx Instructions: Test five times daily Novolog U-100 Insulin aspart 100 unit/mL solution See Rx Instructions continuous subcutaneous infusion UD 90 Days Qty: 90 0RF Rx Instructions: Use up to 100 units daily continuous subcutaneous infusion as directed ergocalciferol (vitamin D2) [Vitamin D2] 1,250 mcg (50,000 unit) capsule 1,250 mcg PO DAILY valganciclovir 450 mg tablet 450 mg PO DAILY prednisone 5 mg tablet 5 mg PO QAM fexofenadine [Radha Allergy] 180 mg Tablet 180 mg PO QAM metoprolol tartrate 50 mg tablet 50 mg PO BID magnesium 250 mg Tablet 250 mg PO BID albuterol sulfate [Ventolin HFA] 90 mcg/actuation Hfa Aerosol Inhaler 2 puff INHALATION Q4H PRN (Reason: Shortness Of Breath Or Wheezing) ferrous sulfate 325 mg (65 mg iron) Tablet,Delayed Release (Dr/Ec) 325 mg PO BID Zenpep 40,000-126,000- 168,000 unit Capsule,Delayed Release(Dr/Ec) 1 - 6 cap PO UD Rx Instructions: take 6 capsules with meals, take 1 capsule w/snacks everolimus (immunosuppressive) [Zortress] 0.5 mg tablet 1 mg PO BID acetaminophen [Tylenol] 325 mg Tablet 650 mg PO Q6H PRN (Reason: fever/pain) tacrolimus 1 mg Capsule 2 mg PO BID Referrals Referrals: Sindy Isbell MD [Primary Care Provider] -
--- NOTE | 2022-08-10 08:51 | History & Physical Report ---
Date of Service August 10, 2022 Assessment & Plan (1) Cystic fibrosis: (2) Abdominal pain: Plan: Transplant Team at [facility] was called and notified about the patients status and admission to the hospital. Discussed with Dr. Waleska See (cell: [phone]) - Concerned for JOYCE - distal intestinal obstructive syndrome. Usually pt requires NGT, barium enema with IR if high stool burden however at this time does not appear that way on CT. Go-lytely PO now- but if nauseous and vomits will need to place NGT. Low threshold for possible transfer if pt is not improved within the next 24 hrs. Hold everlimus. Continue tacrolimus, 1 mg Q12H- starting now and then 6 am and 6pm and will draw tacromilus labs. , - if he vomits it then will need sublingual and needs dose changes - call back to discuss those dosing recommendations. Cont prednisone for now but if doesnt tolerate then switch to solumedrol 4 mg IV. If any decompromise, then will need stress dosing and likely transfer. - WBC 17.19, neutrophils 13.94 indicating a left shift, Hgb 11.7, HCT 36.5, PLT 283. - Start on Zosyn IV with leukocytosis - CT reviewed showin. Edematous wall thickening of numerous small bowel loops as well as mild wall thickening of the right colon with associated mesenteric stranding and a small amount of ascites. In addition, multiple small bowel loops are mildly dilated and fluid-filled raising the possibility of a partial small bowel obstruction although no discrete contusion point. The findings represent a nonspecific enterocolitis however distal intestinal obstruction syndrome is a consideration given cystic fibrosis. 2. No evidence for acute appendicitis. 3. Bilateral nephrolithiasis. No ureteral calculi. No hydronephrosis. 4. Mild bladder wall thickening, unchanged. 5. Fatty atrophy of the pancreas consistent with cystic fibrosis. - Consult General Surgery - Dr. Angel - plan for IVFs, NPO except meds, advance diet if tolerates and moves bowels, no plans for surgery at this time and will continue with conservative management - Lipase < 3 - Will check stool studies and PCR to r/o infectious cause with hx of being on immunosuppressants (3) Lung transplant status, bilateral: Plan: - Underwent double lung transplant for cystic fibrosis on 02/22/2016. Basiliximab induction, CMV mismatch, EBV +/+, complicated by severe PGD requiring post operative VV ECMO and open chest for a few days, recovered quickly and was weaned off O2 after about 10 days. - CoVID -19 infection in mid July 2021 now resolved with outpatient MAB and levofloxacin. - Pt is on immunosuppressant therapies including zenpep, tacrolimus, everolimus, valgancyclovir, prednisone 5 mg daily, He is OFF xifata and azithromycin mwf for past 6 months. - Transplant team rec holding everolimus but will continue all other therapies - follows with transplant team in [facility] with Dr. 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 Bobbi Mckeon - was previously trailing metoclopramide for gastroparesis which was limiting oral intake - possibly add to abdominal pain as above (5) CKD (chronic kidney disease), stage III: Plan: - Cr. chronically in the mid 2s since 2020, today Cr. is 2.03, BUN 27, trend with am labs - NSS at 80 ml/hr for now (6) GERD (gastroesophageal reflux disease): Plan: - Cont nexium, EGD hx in 2017 notable for LA grade C reflux esophagitis with possible short segment Barretts endoscopically but biopsy negative, and large hiatal hernia, s/p fundoplication in July 2020 - Plan was to possible repeat alejandra/manometry to assess as barium swallow - pt reports this was done last week but was negative for specific findings regarding gastroparesis. Previously revealed moderate paraesophageal hernia containing the intact Hang wrap. (7) Vitamin D deficiency: Plan: - Can check C D level, previously 38.8 in 10/2020, attempt to maintain over 35 - planned for DEXA scan this year DVT ppx: - teds, scds CODE: FULL code - discussed with pt at bedside Dispo: From home, likely to remain in the hospital x 1-2 days. Low threshold for transfer to [facility]. Discussed with Dr. Waleska Lenderman as above. Plan to keep daily updates with transplant team while the patient is admitted here. A total of 125 minutes were spent with greater than 50% of that time face to face with the patient, personally reviewing all current laboratories, imaging studies, past medication reconciliation, outpatient chart review, and discussion with specialists to collaborate care for the patient with attending. Please see attending documentation for corrections and/or additions. History of Present Illness Chief Complaint: Abdominal Pain Primary Care Provider: Sindy Isbell MD This is a 37-year-old male with PMHx of cystic fibrosis with pancreatic insufficiency and malnutrition, gastroparesis,, immunosuppression therapy, lung transplant in 2016, Blayne fundoplication, DM due to aforementioned on insulin pump, osteopenia, vitamin D deficiency, GERD who presents with abdominal pain. Pt reports starting to have abdominal pain, cramping and discomfort yesterday which lasted all night. Pt is passing gas, no bowel movement today, last BM was 7:30pm last evening with diarrhea twice at that time. He states pain was not relieved with the BM. Admits that he had some nausea, but no vomiting due to hx of Blayne procedure. He has previously used mirilax to help but ran out of this at home. Pt has had similar episodes like this before and has used mirilax to help with this in the past. Pt denies any recent sick contacts. He admits to some chills, but denies fever and sweats. Pt was able to take all of his normal home medications last night, but did not take any this morning yet. He reports having a gastric emptying study last week which he reports it was normal. Pt notes more cramping than normal during the last bout which was about 5 years ago. He has previously required bowel prep and enemas to resolve obstructions along with NGT to treat such. Allergies Allergy/AdvReac Type Severity Reaction Status Date / Time vancomycin Allergy Intermediate Red man Verified 10/19/21 12:09 syndrome Home Medications Medication Instructions Recorded Confirmed Type albuterol sulfate 90 mcg/actuation 2 puff inhalation Q4H PRN 08/10/18 08/10/22 History aerosol inhaler (Ventolin HFA) Shortness Of Breath Or Wheezing ferrous sulfate 325 mg (65 mg 325 mg PO BID 08/10/18 08/10/22 History iron) tablet,delayed release fexofenadine 180 mg tablet 180 mg PO QAM PRN nasal congestion 08/10/18 08/10/22 History (Radha Allergy) [id number] 6 cap PO UD 08/10/18 08/10/22 History 40,000-126,000-168,000 unit capsule, delay rel (Zenpep) magnesium 250 mg tablet 250 mg PO BID 08/10/18 08/10/22 History metoprolol tartrate 50 mg tablet 50 mg PO BID 08/10/18 08/10/22 History prednisone 5 mg tablet 5 mg PO QAM 08/10/18 08/10/22 History valganciclovir 450 mg tablet 450 mg PO DAILY 08/10/18 08/10/22 History everolimus (immunosuppressive) 0.5 1 mg PO BID 10/04/19 08/10/22 History mg tablet (Zortress) acetaminophen 325 mg tablet 650 mg PO Q6H PRN fever/pain 03/23/20 08/10/22 History (Tylenol) blood sugar diagnostic (Accu-Chek #500 ea 04/08/20 08/10/22 Rx Guide test strips) tacrolimus 1 mg capsule, 2 mg PO BID 10/13/21 08/10/22 History immediate-release ergocalciferol (vitamin D2) 1,250 1,250 mcg PO DAILY 10/16/21 08/10/22 History mcg (50,000 unit) capsule (Vitamin D2) Novolog U-100 Insulin aspart 100 See Rx Instructions continuous 11/28/21 08/10/22 Rx unit/mL subcutaneous solution subcutaneous infusion UD 90 days (insulin aspart U-100) #90 mL metoclopramide HCl 10 mg tablet 10 mg PO ACHS 08/10/22 08/10/22 History Past Med/Surg History Medical History (Updated 08/10/22 @ 16:26 by TRIXIE Mccall) CKD (chronic kidney disease), stage III COVID-19 Cystic fibrosis (11/28/12) 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 History of Hang fundoplication Laparoscopic hang, done in [place] Lung transplant status, bilateral 5 1/2 years ago[facility] [place] Smoking Status: Never smoker Second Hand Exposure: No; Do You Dip or Chew Tobacco: No; Hx Alcohol Use: Yes Alcohol type: beer, wine and hard liquor Hx Substance Use: No Preferred Language: Yakut Communication Ability: Effective Wad Blanking Press Adjuster Required: No Beliefs That Will Affect Care: None Current Living Situation: Family Current Living Situation Comment: lives with dad Other Information That Helps Us Care for You: No Feels Safe at Home: Yes Safety Concerns: Feels Safe At This Time Assistive Devices: Glasses Review of Systems Review of Systems: Constitutional: + fever, no sweats or chills Eyes: No diplopia, no worsening or blurred vision ENT: normal hearing, no trouble swallowing Respiratory: No cough, sputum, dyspnea at rest or on exertion Cardiovascular: No chest pain, tightness or palpitations Abdomen: + As per HPI, + LLQ pain, nausea, vomiting, diarrhea, +flatus Musculoskeletal: No joint pain, calf pain, swelling Neurologic: No weakness, numbness/tingling, or balance problems Psychiatric: No anxiety or depression Skin: No rash or itch Physical Exam Physical Exam: Please refer to attending addendum for physical exam Results & Data Results & Data Vital Signs (Past 12 Hours) Vital Signs Temp Pulse Pulse Resp BP BP Pulse Ox 08/10/22 08:06 98 H 18 109/69 94 08/10/22 05:54 106 H 08/10/22 05:14 36.8 C 105 H 20 129/88 98 O2 Del Method 08/10/22 08:06 Room Air 08/10/22 05:54 08/10/22 05:14 Room Air Laboratory Results 08/10/22 06:54 Aerobic Blood Culture - Pending Blood Anaerobic Blood Culture - Pending 08/10/22 06:35 Aerobic Blood Culture - Pending Blood Anaerobic Blood Culture - Pending 08/10/22 08/10/22 08/10/22 Unknown 06:35 05:25 WBC RBC Hgb Hct MCV MCH MCHC RDW Std Deviation RDW Coeff of Adrianna Plt Count MPV Immature Gran % (Auto) Neut % (Auto) Lymph % (Auto) Brantley % (Auto) Eos % (Auto) Baso % (Auto) Neut # (Auto) Lymph # (Auto) Brantley # (Auto) Eos # (Auto) Baso # (Auto) Immature Gran # (Auto) Sodium 138 Potassium 4.1 Chloride 110 H Carbon Dioxide 22 Anion Gap 6 BUN 27 H Creatinine 2.03 H Est Cr Clr Drug Dosing 38.1 Est GFR ( Amer) 46.5 Est GFR (Non-Af Amer) 40.1 BUN/Creatinine Ratio 13.3 Glucose 90 Lactate 1.1 Calcium 7.6 L Total Bilirubin 1.4 H AST 19 ALT 27 Alkaline Phosphatase 104 Total Protein 6.3 Albumin 3.2 L Globulin 3.1 Albumin/Globulin Ratio 1.0 Lipase < 3 L SARS-CoV-2, RNA, NAAT NEGATIVE 08/10/22 05:25 WBC 17.19 H RBC 4.09 L Hgb 11.7 L Hct 36.5 L MCV 89.2 MCH 28.6 MCHC 32.1 RDW Std Deviation 48.2 H RDW Coeff of Adrianna 14.8 H Plt Count 283 MPV 9.0 L Immature Gran % (Auto) 0.6 Neut % (Auto) 81.1 Lymph % (Auto) 10.6 Brantley % (Auto) 5.8 Eos % (Auto) 1.6 Baso % (Auto) 0.3 Neut # (Auto) 13.94 H Lymph # (Auto) 1.83 Brantley # (Auto) 0.99 H Eos # (Auto) 0.27 Baso # (Auto) 0.05 Immature Gran # (Auto) 0.11 Sodium Potassium Chloride Carbon Dioxide Anion Gap BUN Creatinine Est Cr Clr Drug Dosing Est GFR ( Amer) Est GFR (Non-Af Amer) BUN/Creatinine Ratio Glucose Lactate Calcium Total Bilirubin AST ALT Alkaline Phosphatase Total Protein Albumin Globulin Albumin/Globulin Ratio Lipase SARS-CoV-2, RNA, NAAT Diagnostic Findings Abdomen/Pelvis CT 08/10/22 05:20 CT OF THE ABDOMEN AND PELVIS WITHOUT CONTRAST CLINICAL HISTORY: Right lower quadrant pain. Nausea. COMPARISON STUDY: CT of the abdomen and pelvis August 10, 2018. Right upper quadrant ultrasound October 04, 2019. TECHNIQUE: Axial images of the abdomen and pelvis were obtained without IV contrast. Images were reviewed in the axial, sagittal, and coronal planes. Automated exposure control was utilized for the study. A dose lowering technique was utilized adhering to the principles of ALARA. FINDINGS: A moderate-sized hiatal hernia with partially intrathoracic stomach is present. There is a small amount of ascites within the hernia. Subpleural ret iculation and groundglass opacities within the lower lungs are noted. There is no pneumatosis, free air or portal venous gas. Evaluation of the abdomen and pelvis is suboptimal on this unenhanced examination. Unenhanced images of the liver, spleen and adrenal glands are unremarkable. There is fatty atrophy of the pancreas. No biliary or pancreatic ductal dilatation is present. There is no evidence for acute appendicitis. There is moderate wall thickening of numerous small bowel loops. The wall appears edematous. There is associated mesenteric stranding and a small amount of ascites. Several small bowel loops are mildly dilated and fluid-filled as well. A well-defined transition point is not identified. The right colon is also mildly dilated. There is a moderate amount of stool within the colon. No colonic transition point is identified. There is no fluid collection. Mild bladder wall thickening is unchanged. There is trace ascites within the pelvis. No acute fractures are present. There is no lymphadenopathy. Small bilateral renal calculi are noted. These measure up to 4 mm. There are no ureteral calculi. There is no hydronephrosis. IMPRESSION: 1. Edematous wall thickening of numerous small bowel loops as well as mild wall thickening of the right colon with associated mesenteric stranding and a small amount of ascites. In addition, multiple small bowel loops are mildly dilated and fluid-filled raising the possibility of a partial small bowel obstruction although no discrete contusion point. The findings represent a nonspecific enterocolitis however distal intestinal obstruction syndrome is a consideration given cystic fibrosis. 2. No evidence for acute appendicitis. 3. Bilateral nephrolithiasis. No ureteral calculi. No hydronephrosis. 4. Mild bladder wall thickening, unchanged. 5. Fatty atrophy of the pancreas consistent with cystic fibrosis. ACT 112: Negative or not required by law. Electronically signed by: Jerome Zhang M.D. 08/10/2022 6:30 AM Code Status & VTE Plan Code Status Full code - discussed with the patient at bedside Supervising Physician Co-Signing Physician Notes Pt seen and examined by co , care coordinated w/ Ebony Gillette PA-C, pls refer to her note above for further detail. Pt is a 37-year-old male with cystic fibrosis (s/p lung transplant) with pancreatic insufficiency and malnutrition, gastroparesis, immunosuppression therapy, lung transplant in 2016, Blayne fundoplication, DM due to aforementioned on insulin pump, osteopenia, vitamin D deficiency, GERD who presents with abdominal pain. CT abdomen obtained in ED - Edematous wall t hickening of numerous small bowel loops as well as mild wall thickening of the right colon with associated mesenteric stranding. In addition, multiple small bowel loops are mildly dilated and fluid-filled raising the possibility of a partial small bowel obstruction although no discrete contusion point. The findings represent a nonspecific enterocolitis however distal intestinal obstruction syndrome is a consideration given cystic fibrosis. Currently patient is lying in bed, in no acute distress, says that he feels better since coming to the hospital. Reports having 2 episodes of diarrhea yes terday, and nausea. He is passing flatus. He is awake alert oriented answering appropriately. Lung sounds clear. Heart sounds regular. Abdomen is soft mildly tender to palpation at left lower quadrant. Patient moves extremities, no lower extremity edema. Skin is warm and dry. White blood cell count elevated, and given patient's immunocompromise status, Zosyn started, continue IV fluids. Check stool studies. GI and surgery consulted. Transplant team also contacted. Continue to closely monitor. MD Lien
--- NOTE | 2022-08-10 08:57 | Surgery Consultation ---
Date of Consultation August 10, 2022 Assessment & Plan (1) Abdominal pain: (2) Nausea: Plan 37 yo male with cystic fibrosis presented to ED with complaint of cramping abdominal pain that progressively increased in severity starting yesterday after lunch with associated chills and nausea. CT scan with multiple edematous loops of small bowel and the right colon with dilated fluid filled small bowel without transition point likely enterocolitis vs partial SBO. Lactate normal. Leukoc ytosis of 17. History of prior obstruction treated conservatively. Plan: No acute surgical intervention required Recommend hospitalist admission with conservative management conservative management : NPO for bowel rest, IV fluids, pain management as needed, antiemetics as needed May require laxatives given history of requiring them during past obstruction and CT scan showing moderate amount of stool in colon Consult GI for co-manage enterocolitis We agreed with -Low threshold for possible transfer if pt is not improved within the next 24 hrs. encourage ambulation repeat am labs will follow along Discussed with Dr. Angel who agrees with above. I saw pt at ER and reviewed pt's H/P, labs and CT scan with pt. I agreed with above treatment plans. Dr. Angel History of Present Illness Reason for Consultation: Enterocolitis vs Partial SBO Requesting Physician: Dr. Lucas Attending Physician: Dr. Lucas History of Present Illness Ethan is a 28 yo male with history of cystic fibrosis s/p bilateral lung transplant, GERD s/p hang fundoplication, CKD stage III, diabetes mellitus, vitamin D deficiency, low bone mass who presented to emergency department this morning with complaint of cramping abdominal pain with associated nausea that progressively got worse throughout day yesterday. Associated chills last evening but no fever. Had bowel movement yesterday morning but has been able to pass gas last night and this morning. History of partial obstruction treated conservatively in past. Has been having more bowel issues recently with abdominal cramping. Does not have issues with chronic constipation. States no recent sick contacts at home. Had fish tacos yesterday afternoon for lunch and cramping and pain started after lunch but was feeling slightly bloated before lunch. States he had small bowel obstruction in past and was treated in hospital in [place]. States they gave him oral laxatives and enemas which eventually he did not require any surgery as he started to have bowel function. ER work-up included labs which showed leukocytosis of 17k, afebrile, CT scan of abd/pelvis without contrast showing multiple edematous loops of small bowel with a few dilated fluid filled small bowel loops in which there could be partial obstruction however no transition point seen. There is some edema of the wall of the ascending colon consistent with a enterocolitis. States he is feeling better. pain about 3/10 , 7/10 previously. Had Morphine. Passing gas. Does not feel bloated any more. Allergies Allergy/AdvReac Type Severity Reaction Status Date / Time vancomycin Allergy Intermediate Red man Verified 10/19/21 12:09 syndrome Home Medications Medication Instructions Recorded Confirmed Type albuterol sulfate 90 mcg/actuation 2 puff inhalation Q4H PRN 08/10/18 08/10/22 History aerosol inhaler (Ventolin HFA) Shortness Of Breath Or Wheezing ferrous sulfate 325 mg (65 mg 325 mg PO BID 08/10/18 08/10/22 History iron) tablet,delayed release fexofenadine 180 mg tablet 180 mg PO QAM PRN nasal congestion 08/10/18 08/10/22 History (Radha Allergy) [id number] 6 cap PO UD 08/10/18 08/10/22 History 40,000-126,000-168,000 unit capsule, delay rel (Zenpep) magnesium 250 mg tablet 250 mg PO BID 08/10/18 08/10/22 History metoprolol tartrate 50 mg tablet 50 mg PO BID 08/10/18 08/10/22 History prednisone 5 mg tablet 5 mg PO QAM 08/10/18 08/10/22 History valganciclovir 450 mg tablet 450 mg PO DAILY 08/10/18 08/10/22 History everolimus (immunosuppressive) 0.5 1 mg PO BID 10/04/19 08/10/22 History mg tablet (Zortress) acetaminophen 325 mg tablet 650 mg PO Q6H PRN fever/pain 03/23/20 08/10/22 History (Tylenol) blood sugar diagnostic (Accu-Chek #500 ea 04/08/20 08/10/22 Rx Guide test strips) tacrolimus 1 mg capsule, 2 mg PO BID 10/13/21 08/10/22 History immediate-release ergocalciferol (vitamin D2) 1,250 1,250 mcg PO DAILY 10/16/21 08/10/22 History mcg (50,000 unit) capsule (Vitamin D2) Novolog U-100 Insulin aspart 100 See Rx Instructions continuous 11/28/21 08/10/22 Rx unit/mL subcutaneous solution subcutaneous infusion UD 90 days (insulin aspart U-100) #90 mL metoclopramide HCl 10 mg tablet 10 mg PO ACHS 08/10/22 08/10/22 History Patient History Medical History (Updated 08/10/22 @ 09:01 by Tamela Wray PA-C) CKD (chronic kidney disease), stage III COVID-19 Cystic fibrosis (11/28/12) 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 History of Hang fundoplication Laparoscopic hang, done in [place] Lung transplant status, bilateral 5 1/2 years ago, [facility] [place] Smoking Status: Never smoker Second Hand Exposure: No; Do You Dip or Chew Tobacco: No; Hx Alcohol Use: Yes Alcohol type: beer, wine and hard liquor Hx Substance Use: No Preferred Language: Vietnamese Communication Ability: Effective Pharmaceutical Worker Required: No Beliefs That Will Affect Care: None Current Living Situation: Parent Current Living Situation Comment: lives with dad Feels Safe at Home: Yes Assistive Devices: Glasses Review of Systems Review of Systems: All systems reviewed & are unremarkable except as noted in HPI & below Physical Exam Constitutional: WD/WN, vitals as above cooperative and comfortable; no acute distress and not ill appearing Neck: normal visual inspection and trachea midline Respiratory: normal respiratory effort, lungs clear to auscultation Cardiovascular: Rate/Rhythm: regular rhythm and + tachycardic Heart Sounds: normal S1 and normal S2 Chest (Breasts): Chest: + vascular access device or port Gastrointestinal (Abdomen): Inspection/Auscultation: abdomen normal to inspection, + abdominal surgical scar and + hypoactive bowel sounds; abdomen not distended and + abnormal bowel sounds Percussion/Palpation: abdomen soft; abdomen nontender, no guarding, abdomen not rigid and abdomen not firm Skin: no rashes, warm and dry Psychiatric: Orientation: alert and oriented x 3 Results & Data Vital Signs (Past 12 Hours) Vital Signs Temp Pulse Pulse Resp BP BP Pulse Ox 08/10/22 08:06 98 H 18 109/69 94 08/10/22 05:54 106 H 08/10/22 05:14 36.8 C 105 H 20 129/88 98 O2 Del Method 08/10/22 08:06 Room Air 08/10/22 05:54 08/10/22 05:14 Room Air Laboratory Results 08/10/22 08/10/22 08/10/22 Range/Units Unknown 06:35 05:25 WBC (4.8-10.8) K/ul RBC (4.70-6.10) M/uL Hgb (14.0-18.0) g/dl Hct (42.0-52.0) % MCV (80.0-100.0) fL MCH (25.0-34.0) pg MCHC (32.0-36.0) g/dL RDW Std Deviation (36.4-46.3) fL RDW Coeff of Adrianna (11.5-14.5) % Plt Count (130-400) K/uL MPV (9.4-12.4) fL Immature Gran % (Auto) % Neut % (Auto) % Lymph % (Auto) % Long % (Auto) % Eos % (Auto) % Baso % (Auto) % Neut # (Auto) (1.40-6.50) K/uL Lymph # (Auto) (1.2-3.4) K/uL Long # (Auto) (0.11-0.59) K/uL Eos # (Auto) (0-0.50) K/uL Baso # (Auto) (0-0.2) K/uL Immature Gran # (Auto) (0.01-0.20) K/uL Sodium 138 (136-145) mmol/L Potassium 4.1 (3.5-5.1) mmol/L Chloride 110 H (98-107) mmol/L Carbon Dioxide 22 (21-32) mmol/L Anion Gap 6 (3-11) BUN 27 H (6-23) mg/dl Creatinine 2.03 H (0.6-1.4) mg/dl Est Cr Clr Drug Dosing 38.1 ml/min Est GFR ( Amer) 46.5 ml/min Est GFR (Non-Af Amer) 40.1 ml/min BUN/Creatinine Ratio 13.3 (10-20) Glucose 90 (70-99(Fasting)) mg/dl Lactate 1.1 (0.4-2.0) mmol/L Calcium 7.6 L (8.6-10.3) mg/dl Total Bilirubin 1.4 H (0.2-1.0) mg/dl AST 19 (13-39) U/L ALT 27 (7-52) U/L Alkaline Phosphatase 104 (34-104) U/L Total Protein 6.3 (6.0-8.3) gm/dl Albumin 3.2 L (3.4-5.0) gm/dl Globulin 3.1 (2.5-4.0) gm/dl Albumin/Globulin Ratio 1.0 (0.9-2) Lipase < 3 L (11-82) U/L SARS-CoV-2, RNA, NAAT NEGATIVE (NEGATIVE) 08/10/22 Range/Units 05:25 WBC 17.19 H (4.8-10.8) K/ul RBC 4.09 L (4.70-6.10) M/uL Hgb 11.7 L (14.0-18.0) g/dl Hct 36.5 L (42.0-52.0) % MCV 89.2 (80.0-100.0) fL MCH 28.6 (25.0-34.0) pg MCHC 32.1 (32.0-36.0) g/dL RDW Std Deviation 48.2 H (36.4-46.3) fL RDW Coeff of Adrianna 14.8 H (11.5-14.5) % Plt Count 283 (130-400) K/uL MPV 9.0 L (9.4-12.4) fL Immature Gran % (Auto) 0.6 % Neut % (Auto) 81.1 % Lymph % (Auto) 10.6 % Long % (Auto) 5.8 % Eos % (Auto) 1.6 % Baso % (Auto) 0.3 % Neut # (Auto) 13.94 H (1.40-6.50) K/uL Lymph # (Auto) 1.83 (1.2-3.4) K/uL Long # (Auto) 0.99 H (0.11-0.59) K/uL Eos # (Auto) 0.27 (0-0.50) K/uL Baso # (Auto) 0.05 (0-0.2) K/uL Immature Gran # (Auto) 0.11 (0.01-0.20) K/uL Sodium (136-145) mmol/L Potassium (3.5-5.1) mmol/L Chloride (98-107) mmol/L Carbon Dioxide (21-32) mmol/L Anion Gap (3-11) BUN (6-23) mg/dl Creatinine (0.6-1.4) mg/dl Est Cr Clr Drug Dosing ml/min Est GFR ( Amer) ml/min Est GFR (Non-Af Amer) ml/min BUN/Creatinine Ratio (10-20) Glucose (70-99(Fasting)) mg/dl Lactate (0.4-2.0) mmol/L Calcium (8.6-10.3) mg/dl Total Bilirubin (0.2-1.0) mg/dl AST (13-39) U/L ALT (7-52) U/L Alkaline Phosphatase (34-104) U/L Total Protein (6.0-8.3) gm/dl Albumin (3.4-5.0) gm/dl Globulin (2.5-4.0) gm/dl Albumin/Globulin Ratio (0.9-2) Lipase (11-82) U/L SARS-CoV-2, RNA, NAAT (NEGATIVE) Diagnostic Findings CT OF THE ABDOMEN AND PELVIS WITHOUT CONTRAST CLINICAL HISTORY: Right lower quadrant pain. Nausea. COMPARISON STUDY: CT of the abdomen and pelvis August 10, 2018. Right upper quadrant ultrasound October 04, 2019. TECHNIQUE: Axial images of the abdomen and pelvis were obtained without IV contrast. Images were reviewed in the axial, sagittal, and coronal planes. Automated exposure control was utilized for the study. A dose lowering technique was utilized adhering to the principles of ALARA. FINDINGS: A moderate-sized hiatal hernia with partially intrathoracic stomach is present. There is a small amount of ascites within the hernia. Subpleural reticulation and groundglass opacities within the lower lungs are noted. There is no pneumatosis, free air or portal venous gas. Evaluation of the abdomen and pelvis is suboptimal on this unenhanced examination. Unenhanced images of the liver, spleen and adrenal glands are unremarkable. There is fatty atrophy of the pancreas. No biliary or pancreatic ductal dilatation is present. There is no evidence for acute appendicitis. There is moderate wall thickening of numerous small bowel loops. The wall appears edematous. There is associated mesenteric stranding and a small amount of ascites. Several small bowel loops are mildly dilated and fluid-filled as well. A well-defined transition point is not identified. The right colon is also mildly dilated. There is a moderate amount of stool within the colon. No colonic transition point is identified. There is no fluid collection. Mild bladder wall thickening is unchanged. There is trace ascites within the pelvis. No acute fractures are present. There is no lymphadenopathy. Small bilateral renal calculi are noted. These measure up to 4 mm. There are no ureteral calculi. There is no hydronephrosis. IMPRESSION: 1. Edematous wall thickening of numerous small bowel loops as well as mild wall thickening of the right colon with associated mesenteric stranding and a small amount of ascites. In addition, multiple small bowel loops are mildly dilated and fluid-filled raising the possibility of a partial small bowel obstruction although no discrete contusion point. The findings represent a nonspecific enterocolitis however distal intestinal obstruction syndrome is a consideration given cystic fibrosis. 2. No evidence for acute appendicitis. 3. Bilateral nephrolithiasis. No ureteral calculi. No hydronephrosis. 4. Mild bladder wall thickening, unchanged. 5. Fatty atrophy of the pancreas consistent with cystic fibrosis.
[2022-08-10] MEDS ORDERED: PIPERACILLIN/TAZOBACTAM 4.5 GM in DEXTROSE 5% 100 ML IV SCH (09:30)
[2022-08-10] MEDS ORDERED: PIPERACILLIN/TAZOBACTAM 4.5 GM (over 30 mins) IV ONE (10:00)
[2022-08-10] MEDS ORDERED: HYDROmorphone INJ 1 MG/ML SYRINGE IV STA (10:15)
[2022-08-10] MEDS ORDERED: LAVAGE SOLUTION 4000ML PO ONE (11:30)
--- NOTE | 2022-08-10 14:30 | Gastrointestinal Consultation ---
Date of Consultation August 10, 2022 Assessment & Plan (1) Partial small bowel obstruction: (2) Cystic fibrosis: Plan 1. IV fluids, bowel rest, cover w broad spectrum antibiotics. 2. Golytely prep. 3. If worsens or does not pass several BMs, then will need barium enema and if not availble here, would need transfer. 4. Eventual - OP colonoscopy. Pt has a GI that he sees at [facility] [place] for [place]ERD, Colonoscopy should be arranged with that GI group which has experience w CF patients. 4. Diet per surgery, but no GI contraindication to clear liquids at this time. Supervising Physician Co-Signing Physician Notes I performed a history and physical examination of the patient today, including specifically on physical exam - soft abdomen. I have discussed the patient's management with the advanced practitioner. Please refer to the nurse practitioner's note for the documented findings and plan of care. Patient should be managed in his transplant center at [facility], specifically that they have more expertise managing his CF related GI issues. He is feeling better and passing small BMs. Ideally he should get a Barium enema. May use gentle Golytely. Please coordinate management with [facility]. Recall GI if needed. History of Present Illness Reason for Consultation: Enterocolitis Requesting Physician: Dr. Emmanuel Attending Physician: Oc Emmanuel MD History of Present Illness Mr. Ethan Gomez is a 37 yr old male pt of Dr. Mag Isbell with a hx of CF s/p lung transplant, DM1, GERD post Hang who presented to the ED today for abdominal pain. At baseline, he has an alternating bowel pattern, frequently having some diarrhea. Yesterday, he had some lower abdomen cramping which is not unusual. He laid down and rested but pain persisted. He had some chills, but didn't measure his temp. He also had nausea but is unable to vomit post Hang. He had some diarrhea last night and is passing some gas today but no BMs today. No blood in yesterday's diarrhea or other rectal bleeding. Non contrast CT on arrival w dilated small bowel loops and thickening of the fleming of the right colon. He has leukocytosis at 17 and is receiving Zosyn. He has been NPO since arrival and tells me that he feels better than prior to arrival. Allergies Allergy/AdvReac Type Severity Reaction Status Date / Time vancomycin Allergy Intermediate Red man Verified 10/19/21 12:09 syndrome Home Medications Medication Instructions Recorded Confirmed Type albuterol sulfate 90 mcg/actuation 2 puff inhalation Q4H PRN 08/10/18 08/10/22 History aerosol inhaler (Ventolin HFA) Shortness Of Breath Or Wheezing ferrous sulfate 325 mg (65 mg 325 mg PO BID 08/10/18 08/10/22 History iron) tablet,delayed release fexofenadine 180 mg tablet 180 mg PO QAM PRN nasal congestion 08/10/18 08/10/22 History (Radha Allergy) [id number]-[id number]-[id number] 6 cap PO UD 08/10/18 08/10/22 History 40,000-126,000-168,000 unit capsule, delay rel (Zenpep) magnesium 250 mg tablet 250 mg PO BID 08/10/18 08/10/22 History metoprolol tartrate 50 mg tablet 50 mg PO BID 08/10/18 08/10/22 History prednisone 5 mg tablet 5 mg PO QAM 08/10/18 08/10/22 History valganciclovir 450 mg tablet 450 mg PO DAILY 08/10/18 08/10/22 History everolimus (immunosuppressive) 0.5 1 mg PO BID 10/04/19 08/10/22 History mg tablet (Zortress) acetaminophen 325 mg tablet 650 mg PO Q6H PRN fever/pain 03/23/20 08/10/22 History (Tylenol) blood sugar diagnostic (Accu-Chek #500 ea 04/08/20 08/10/22 Rx Guide test strips) tacrolimus 1 mg capsule, 2 mg PO BID 10/13/21 08/10/22 History immediate-release ergocalciferol (vitamin D2) 1,250 1,250 mcg PO DAILY 10/16/21 08/10/22 History mcg (50,000 unit) capsule (Vitamin D2) Novolog U-100 Insulin aspart 100 See Rx Instructions continuous 11/28/21 08/10/22 Rx unit/mL subcutaneous solution subcutaneous infusion UD 90 days (insulin aspart U-100) #90 mL metoclopramide HCl 10 mg tablet 10 mg PO ACHS 08/10/22 08/10/22 History Patient History Medical History (Updated 08/10/22 @ 16:26 by TRIXIE Mccall) CKD (chronic kidney disease), stage III COVID-19 Cystic fibrosis (11/28/12) 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 History of Hang fundoplication Laparoscopic hang, done in [place] Lung transplant status, bilateral 5 1/2 years ago, [facility] in [place]; f/u Dr. Bynum, [facility] Social History Smoking Status: Never smoker Second Hand Exposure: No; Do You Dip or Chew Tobacco: No; Hx Alcohol Use: Yes Alcohol type: beer, wine and hard liquor Hx Substance Use: No Preferred Language: Afghan Communication Ability: Effective Air Intercept Controller Supervisor Required: No Beliefs That Will Affect Care: None Current Living Situation: Parent Current Living Situation Comment: lives with dad Feels Safe at Home: Yes Assistive Devices: Glasses Review of Systems Review of Systems: ROS: Gen: + weakness, chills since yesterday; No unexplained weight loss Eyes: No eye redness, or pain, no recent vision changes Resp: No worsening respiratory status. No SOB, no cough Cardio: No palpitations/irregular beats, no chest pain GI: As per HPI, otherwise (-). : Denies pain on urination Skin: No jaundice, itching or new rashes Ext: no edema, no red/swollen joints Physical Exam Constitutional: WD/WN, vitals as above Eyes: PERRL, conjunctivae normal, anicteric sclerae ENMT: external ear and nose normal, oropharynx normal Neck: trachea midline, no thyromegaly Respiratory: Diminished sounds at both bases, no adventitious sounds. Cardiovascular: RRR, no murmur, no edema Gastrointestinal (Abdomen): soft, non distended, minimal bilat lower abd tenderness Musculoskeletal: no cyanosis or clubbing, extremities motor strength 5/5 Skin: no rashes, warm and dry Neurologic: PERRL, EOMI, accommodation nl, no face palsy, no dysarthria Psychiatric: A+Ox3, euthymic affect Lymphatic: no cervical or axillary lymphadenopathy Results & Data Vital Signs (Past 12 Hours) Vital Signs Temp Pulse Pulse Resp BP BP Pulse Ox 08/10/22 12:30 78 20 138/70 97 08/10/22 09:54 92 H 08/10/22 08:06 98 H 18 109/69 94 08/10/22 05:54 106 H 08/10/22 05:14 36.8 C 105 H 20 129/88 98 O2 Del Method 08/10/22 12:30 08/10/22 09:54 08/10/22 08:06 Room Air 08/10/22 05:54 08/10/22 05:14 Room Air Laboratory Results WBC 17, Hb 11, Hct 36, Plts 283, Na 138, K 4.1, Cl110, Co22, BUN 27, Cr 2.03, Lactate 1.1, LFTs normal. lipase normal. Diagnostic Findings non contrast CTAP: 1. Edematous wall thickening of numerous small bowel loops as well as mild wall thickening of the right colon with associated mesenteric stranding and a small amount of ascites. In addition, multiple small bowel loops are mildly dilated and fluid-filled raising the possibility of a partial small bowel obstruction although no discrete contusion point. The findings represent a nonspecific enterocolitis however distal intestinal obstruction syndrome is a consideration given cystic fibrosis. 2. No evidence for acute appendicitis. 3. Bilateral nephrolithiasis. No ureteral calculi. No hydronephrosis. 4. Mild bladder wall thickening, unchanged. 5. Fatty atrophy of the pancreas consistent with cystic fibrosis.
[2022-08-10] MEDS ORDERED: ACETAMINOPHEN 325 MG TAB PO PRN ×2 (15:33)
[2022-08-10] MEDS ORDERED: ONDANSETRON INJ 2 MG/ML 2 ML VIAL IV PRN (15:33)
[2022-08-10] MEDS ORDERED: FEXOFENADINE HCL 180 MG TAB PO PRN (15:33)
[2022-08-10] MEDS: predniSONE 5 MG TAB PO SCH (16:53)
[2022-08-10] MEDS: METOCLOPRAMIDE HCL 10 MG TABLET PO SCH ×2 (16:53→16:59)
[2022-08-10] MEDS: TACROLIMUS 1 MG CAP PO SCH (16:53)
[2022-08-10] MEDS: POLYETHYLENE (MIRALAX) 17 GM PACK PO SCH (16:53)
[2022-08-10] MEDS: FERROUS SULFATE 325 MG TAB PO SCH (16:53)
[2022-08-10] MEDS: VALGANCICLOVIR HCL 450 MG TABLET PO SCH (16:54)
[2022-08-10] MEDS: PIPERACILLIN/TAZOBACTAM 4.5 GM in DEXTROSE 5% 100 ML IV SCH (17:35)
[2022-08-10] MEDS: SODIUM CHLORIDE 0.9% 1000ML 1,000 ML IV SCH (17:35)
[2022-08-11] MEDS: METOCLOPRAMIDE HCL 10 MG TABLET PO SCH ×5 (00:25→20:53)
[2022-08-11] MEDS: MAGNESIUM OXIDE 400 MG TAB PO SCH ×3 (00:25→20:53)
[2022-08-11] MEDS: METOPROLOL TARTRATE 50 MG TAB PO SCH ×3 (00:25→20:52)
[2022-08-11] MEDS: TACROLIMUS 1 MG CAP PO SCH ×3 (00:26→20:53)
[2022-08-11] MEDS: PIPERACILLIN/TAZOBACTAM 4.5 GM in DEXTROSE 5% 100 ML IV SCH ×4 (00:26→23:43)
[2022-08-11 07:45] LABS: Basophils # (auto) 0.05 K/uL (0-0.2); Basophils % (auto) 0.5 %; Eosinophils % (auto) 3.8 %; Hematocrit (blood only) 30.6 % (42.0-52.0); Hemoglobin 9.8 g/dl (14.0-18.0); Immature Granulocytes # (auto) 0.05 K/uL (0.01-0.20); Immature Granulocytes % (auto) 0.5 %; Lymphocytes # (auto) 3.68 K/uL (1.2-3.4); Mean Corpuscular Hemoglobin 28.5 pg (25.0-34.0); Mean Platelet Volume 9.2 fL (9.4-12.4); Monocytes # (auto) 0.46 K/uL (0.11-0.59); Monocytes % (auto) 4.4 %; Neutrophils # (auto) 5.86 K/uL (1.40-6.50); Neutrophils % (auto) 55.8 %; Platelet Count 289 K/uL (130-400); RDW Coefficient of Variation 15.1 % (11.5-14.5); RDW Standard Deviation 49.3 fL (36.4-46.3); Red Blood Count 3.44 M/uL (4.70-6.10)
[2022-08-11 08:00] LABS: BUN Creatinine Ratio 14.2 (10-20); Creatinine Clr Calc Pharmacy 28.9 ml/min; Est GFR (African American) 32.3 ml/min; Est GFR (Non-African American) 27.9 ml/min; Magnesium 1.6 mg/dl (1.7-2.4); Phosphorus 4.7 mg/dl (2.5-4.9); Potassium 4.8 mmol/L (3.5-5.1)
[2022-08-11] MEDS ORDERED: MAGNESIUM SULFATE / D5W 1 GM/100 ML BAG IV ONE (08:02)
--- NOTE | 2022-08-11 08:11 | Hospitalist Progress Note ---
Date of Service August 11, 2022 Assessment & Plan (1) Cystic fibrosis: (2) Abdominal pain: Plan: On admission - Transplant Team at [facility] was called and notified about the patients status and admission to the hospital. Discussed with Dr. Waleska See (cell: [phone]) - Concerned for JOYCE - distal intestinal obstructive syndrome. Usually pt requires NGT, barium enema with IR if high stool burden however at this time does not appear that way on CT. Go-lytely PO now- but if nauseous and vomits will need to place NGT. Low threshold for possible transfer if pt is not improved within the next 24 hrs. Hold everlimus. Continue tacrolimus, 1 mg Q12H- starting now and then 6 am and 6pm and will draw tacromilus labs. , - if he vomits it then will need sublingual and needs dose changes - call back to discuss those dosing recommendations. Cont prednisone for now but if doesnt tolerate then switch to solumedrol 4 mg IV. If any decompensation, then will need stress dosing and likely transfer. - WBC 17.19, neutrophils 13.94 indicating a left shift, Hgb 11.7, HCT 36.5, PLT 283. - Start on Zosyn IV with leukocytosis - CT reviewed showin. Edematous wall thickening of numerous small bowel loops as well as mild wall thickening of the right colon with associated mesenteric stranding and a small amount of ascites. In addition, multiple small bowel loops are mildly dilated and fluid-filled raising the possibility of a partial small bowel obs truction although no discrete contusion point. The findings represent a nonspecific enterocolitis however distal intestinal obstruction syndrome is a consideration given cystic fibrosis. 2. No evidence for acute appendicitis. 3. Bilateral nephrolithiasis. No ureteral calculi. No hydronephrosis. 4. Mild bladder wall thickening, unchanged. 5. Fatty atrophy of the pancreas consistent with cystic fibrosis. - Consult GI and General Surgery - Dr. Angel - plan for IVFs, NPO except meds, advance diet if tolerates and moves bowels, no plans for surgery at this time and will continue with conservative management - Lipase < 3 - Will check stool studies and PCR to r/o infectious cause with hx of being on immunosuppressants 08/11 -patient had a bowel movement yesterday after GoLytely. Unfortunately stool studies were not obtained. Currently denies any abdominal pain. Denies nausea. White blood cell count now normalized. We will advance diet to clear liquid. (3) Lung transplant status, bilateral: Plan: - Underwent double lung transplant for cystic fibrosis on 02/22/2016. Basiliximab induction, CMV mismatch, EBV +/+, complicated by severe PGD requiring post operative VV ECMO and open chest for a few days, recovered quickly and was weaned off O2 after about 10 days. - CoVID -19 infection in mid July 2021 now resolved with outpatient MAB and levofloxacin. - Pt is on immunosuppressant therapies including zenpep, tacrolimus, everolimus, valgancyclovir, prednisone 5 mg daily, He is OFF xifata and azithromycin mwf for past 6 months. - Transplant team rec holding everolimus but will continue all other therapies - follows with transplant team in [facility] with Dr. 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 Martines - was previously trailing metoclopramide for gastroparesis which was limiting oral intake - possibly add to abdominal pain as above (5) CKD (chronic kidney disease), stage III: Plan: - Cr. chronically in the mid 2s since 2020, today Cr. is 2.03, BUN 27, trend with am labs - cont. IVF NS (6) GERD (gastroesophageal reflux disease): Plan: - Cont nexium, EGD hx in 2017 notable for LA grade C reflux esophagitis with possible short segment Barretts endoscopically but biopsy negative, and large hiatal hernia, s/p fundoplication in July 2020 - Plan was to possibly repeat alejandra/manometry to assess as barium swallow - pt reports this was done last week but was negative for specific findings regarding gastroparesis. Previously revealed moderate paraesophageal hernia containing the intact Hang wrap. (7) Vitamin D deficiency: Plan: - on supplement - planned for DEXA scan this year DVT ppx: - teds, scds CODE: FULL code Dispo: From home, likely to remain in the hospital x 1-2 days. Low threshold for transfer to [facility]. Discussed with Dr. Waleska See as above. Admission and Anticipated Discharge Date Admission Date: August 10, 2022 Subjective Pt seen in follow-up of abdominal pain, partial bowel obstruction, history of cystic fibrosis, status post lung transplant Patient is currently lying in bed, in no acute distress, denies any more abdominal pain Received GoLytely, and reports he did have a bowel movement last evening. Unfortunately stool sample was not obtained. Patient denies any nausea, vomiting. No fevers chills. Asking about advancing diet. Review of Systems Review of Systems: All systems reviewed & are unremarkable except as noted in Subjective Physical Exam Constitutional: WD/WN, vitals as above Eyes: PERRL, conjunctivae normal, anicteric sclerae ENMT: external ear and nose normal, oropharynx normal Neck: trachea midline, no thyromegaly Respiratory: normal respiratory effort, lungs clear to auscultation Cardiovascular: RRR, no murmur, no edema Chest (Breasts): Chest: normal inspection of chest Gastrointestinal (Abdomen): normal bowel sounds, soft, nontender, no hepatosplenomegaly Musculoskeletal: no cyanosis or clubbing, extremities motor strength 5/5 Skin: no rashes, warm and dry Neurologic: PERRL, EOMI, accommodation nl, no face palsy, no dysarthria Psychiatric: A+Ox3, euthymic affect Results & Data Results & Data Vital Signs (Past 12 Hours) Vital Signs Temp Pulse Pulse Resp BP Pulse Ox O2 Del Method 08/11/22 07:54 74 08/11/22 07:39 36.8 C 86 18 116/78 97 Room Air 08/11/22 04:59 36.8 C 77 20 101/65 97 Room Air 08/11/22 02:31 88 08/10/22 23:53 37.1 C 78 20 99/65 L 96 Room Air Laboratory Results 08/11/22 08/11/22 08/11/22 Range/Units 07:20 07:20 06:14 WBC 10.50 (4.8-10.8) K/ul RBC 3.44 L (4.70-6.10) M/uL Hgb 9.8 L (14.0-18.0) g/dl Hct 30.6 L (42.0-52.0) % MCV 89.0 (80.0-100.0) fL MCH 28.5 (25.0-34.0) pg MCHC 32.0 (32.0-36.0) g/dL RDW Std Deviation 49.3 H (36.4-46.3) fL RDW Coeff of Adrianna 15.1 H (11.5-14.5) % Plt Count 289 (130-400) K/uL MPV 9.2 L (9.4-12.4) fL Immature Gran % (Auto) 0.5 % Neut % (Auto) 55.8 % Lymph % (Auto) 35.0 % [facility] % (Auto) 4.4 % Eos % (Auto) 3.8 % Baso % (Auto) 0.5 % Neut # (Auto) 5.86 (1.40-6.50) K/uL Lymph # (Auto) 3.68 H (1.2-3.4) K/uL [facility] # (Auto) 0.46 (0.11-0.59) K/uL Eos # (Auto) 0.40 (0-0.50) K/uL Baso # (Auto) 0.05 (0-0.2) K/uL Immature Gran # (Auto) 0.05 (0.01-0.20) K/uL Sodium 136 (136-145) mmol/L Potassium 4.8 (3.5-5.1) mmol/L Chloride 107 (98-107) mmol/L Carbon Dioxide 22 (21-32) mmol/L Anion Gap 7 (3-11) BUN 39 H (6-23) mg/dl Creatinine 2.74 H D (0.6-1.4) mg/dl Est Cr Clr Drug Dosing 28.9 ml/min Est GFR ( Amer) 32.3 ml/min Est GFR (Non-Af Amer) 27.9 ml/min BUN/Creatinine Ratio 14.2 (10-20) Glucose 189 H (70-99(Fasting)) mg/dl POC Glucose 177 H (70-99) mg/dl Calcium 8.0 L (8.6-10.3) mg/dl Phosphorus 4.7 (2.5-4.9) mg/dl Magnesium 1.6 L (1.7-2.4) mg/dl 08/10/22 Range/Units 16:43 WBC (4.8-10.8) K/ul RBC (4.70-6.10) M/uL Hgb (14.0-18.0) g/dl Hct (42.0-52.0) % MCV (80.0-100.0) fL MCH (25.0-34.0) pg MCHC (32.0-36.0) g/dL RDW Std Deviation (36.4-46.3) fL RDW Coeff of Adrianna (11.5-14.5) % Plt Count (130-400) K/uL MPV (9.4-12.4) fL Immature Gran % (Auto) % Neut % (Auto) % Lymph % (Auto) % [facility] % (Auto) % Eos % (Auto) % Baso % (Auto) % Neut # (Auto) (1.40-6.50) K/uL Lymph # (Auto) (1.2-3.4) K/uL [facility] # (Auto) (0.11-0.59) K/uL Eos # (Auto) (0-0.50) K/uL Baso # (Auto) (0-0.2) K/uL Immature Gran # (Auto) (0.01-0.20) K/uL Sodium (136-145) mmol/L Potassium (3.5-5.1) mmol/L Chloride (98-107) mmol/L Carbon Dioxide (21-32) mmol/L Anion Gap (3-11) BUN (6-23) mg/dl Creatinine (0.6-1.4) mg/dl Est Cr Clr Drug Dosing ml/min Est GFR ( Amer) ml/min Est GFR (Non-Af Amer) ml/min BUN/Creatinine Ratio (10-20) Glucose (70-99(Fasting)) mg/dl POC Glucose 102 H (70-99) mg/dl Calcium (8.6-10.3) mg/dl Phosphorus (2.5-4.9) mg/dl Magnesium (1.7-2.4) mg/dl Medications Administered Current Inpatient Medications Acetaminophen (Acetaminophen 325 Mg Tab) 650 mg PO Q4H PRN PRN Reason: Moderate Pain (Scale 4, 5, 6) Stop: 09/09/22 15:32 Ferrous Sulfate (Ferrous Sulfate 325 Mg Tab) 325 mg PO BIDM [facility] Stop: 09/09/22 15:32 Last Admin: 08/10/22 16:53 Dose: Not Given Fexofenadine HCl (Fexofenadine Hcl 180 Mg Tab) 180 mg PO QAM PRN PRN Reason: nasal congestion Stop: 09/09/22 15:32 Piperacillin Sod/Tazobactam (Sod 4.5 gm/ Dextrose) 120 mls @ 30 mls/hr IV Q8H [facility]; Protocol Stop: 08/14/22 15:29 Last Infusion: 08/11/22 05:04 Dose: Infused Sodium Chloride (Nss 1000ml) 1,000 mls @ 125 mls/hr IV .Q8H [facility] Stop: 09/09/22 15:32 Last Admin: 08/10/22 17:35 Dose: 80 mls/hr Magnesium Sulfate/Dextrose (Magnesium Sulfate / D5w) 1 gm in 100 mls @ 50 mls/hr IV ONE ONE Stop: 08/11/22 10:01 Magnesium Oxide (Magnesium Oxide 400 Mg Tab) 200 mg PO BID [facility] Stop: 09/09/22 20:59 Last Admin: 08/11/22 00:25 Dose: 200 mg Metoclopramide HCl (Metoclopramide Hcl 10 Mg Tablet) 10 mg PO ACHS [facility] Stop: 09/09/22 15:32 Last Admin: 08/11/22 00:25 Dose: 10 mg Metoprolol Tartrate (Metoprolol Tartrate 50 Mg Tab) 50 mg PO BID [facility] Stop: 09/09/22 20:59 Last Admin: 08/11/22 00:25 Dose: 50 mg Miscellaneous (Zenpep: Order Awaiting Action) 1 each N/A QS [facility] Stop: 09/10/22 07:59 Ondansetron HCl (Ondansetron Inj 2 Mg/Ml 2 Ml Vial) 4 mg IV Q4H PRN PRN Reason: Nausea And Vomiting Stop: 09/09/22 15:32 Polyethylene Glycol (Polyethylene (Miralax) 17 Gm Pack) 17 gm PO DAILY [facility] Stop: 09/09/22 15:32 Last Admin: 08/10/22 16:53 Dose: Not Given Prednisone (Prednisone 5 Mg Tab) 5 mg PO QAM [facility] Stop: 09/09/22 15:32 Last Admin: 08/10/22 16:53 Dose: Not Given Tacrolimus (Tacrolimus 1 Mg Cap) 2 mg PO BID [facility] Stop: 09/09/22 15:32 Last Admin: 08/11/22 00:26 Dose: 2 mg Valganciclovir (Valganciclovir Hcl 450 Mg Tablet) 450 mg PO DAILY [facility] Stop: 09/09/22 15:32 Last Admin: 08/10/22 16:54 Dose: Not Given
[2022-08-11] MEDS: predniSONE 5 MG TAB PO SCH (08:14)
[2022-08-11] MEDS: VALGANCICLOVIR HCL 450 MG TABLET PO SCH (08:14)
[2022-08-11] MEDS: POLYETHYLENE (MIRALAX) 17 GM PACK PO SCH (08:14)
[2022-08-11] MEDS: SODIUM CHLORIDE 0.9% 1000ML 1,000 ML IV SCH ×2 (08:15→20:03)
[2022-08-11] MEDS: FERROUS SULFATE 325 MG TAB PO SCH (08:15)
[2022-08-11] MEDS ORDERED: ERGOCALCIFEROL 50,000 UNITS 1250 MCG CAP PO SCH (09:00)
--- NOTE | 2022-08-11 12:16 | Surgery Progress Note ---
Date of Service August 11, 2022 Assessment & Plan (1) Abdominal pain: (2) Nausea: Plan 37 yo male with cystic fibrosis presented to ED with complaint of cramping abdominal pain that progressively increased in severity starting yesterday after lunch with associated chills and nausea. CT scan with multiple edematous loops of small bowel and the right colon with dilated fluid filled small bowel without transition point likely enterocolitis vs partial SBO. Lactate normal. Leukocyt osis of 17. History of prior obstruction treated conservatively. Plan: No acute surgical intervention required Recommend hospitalist admission with conservative management conservative management : NPO for bowel rest, IV fluids, pain management as needed, antiemetics as needed May require laxatives given history of requiring them during past obstruction and CT scan showing moderate amount of stool in colon Consult GI for co-manage enterocolitis We agreed with -Low threshold for possible transfer if pt is not improved within the next 24 hrs. encourage ambulation repeat am labs will follow along Discussed with Dr. Angel who agrees with above. I saw pt at ER and reviewed pt's H/P, labs and CT scan with pt. I agreed with above treatment plans. Dr. Angel 08/11/2022 12:[address] Angel F/U PSBO, resolved clear diet today, WBC down to 10 from 17 Cr up to 2.7 from 2 may consult nephrology for CR 2.7 continue treatment. will F/U Admission and Anticipated Discharge Date Admission Date: August 10, 2022 Supervising Physician Co-Signing Physician Notes Pt seen and examined by me , care coordinated w/ Ebony Gillette PA-C, pls refer to her note above for further detail. Pt is a 37-year-old male with cystic fibrosis (s/p lung transplant) with pancreatic insufficiency and malnutrition, gastroparesis, immunosuppression therapy, lung transplant in 2016, Blayne fundoplication, DM due to aforementioned on insulin pump, osteopenia, vitamin D deficiency, GERD who presents with abdominal pain. CT abdomen obtained in ED - Edematous wall thickening of numerous small bowel loops as well as mild wall thickening of the right colon with associated mesenteric stranding. In addition, multiple small bowel loops are mildly dilated and fluid-filled raising the possibility of a partial small bowel obstruction although no discrete contusion point. The findings represent a nonspecific enterocolitis however distal intestinal obstruction syndrome is a consideration given cystic fibrosis. Currently patient is lying in bed, in no acute distress, says that he feels better since coming to the hospital. Reports having 2 episodes of diarrhea yesterday, and nausea. He is passing flatus. He is awake alert oriented answering appropriately. Lung sounds clear. Heart sounds regular. Abdomen is soft mildly tender to palpation at left lower quadrant. Patient moves extremities, no lower extremity edema. Skin is warm and dry. White blood cell count elevated, and given patient's immunocompromise status, Zosyn started, continue IV fluids. Check stool studies. GI and surgery consulted. Transplant team also contacted. Continue to closely monitor. MD Lien Subjective Pt seen in follow-up of abdominal pain, partial bowel obstruction, history of cystic fibrosis, status post lung transplant Patient is currently lying in bed, in no acute distress, denies any more abdominal pain Received GoLytely, and reports he did have a bowel movement last evening. Unfortunately stool sample was not obtained. Patient denies any nausea, vomiting. No fevers chills. Asking about advancing diet. 08/11/2022 12:[address] Angel F/U PSBO, history of cystic fibrosis, S/P lung transplant pt is doing better, no abdominal pain, passed gas and BM. no fever, Physical Exam Constitutional: WD/WN, vitals as above no distress Eyes: PERRL, conjunctivae normal, anicteric sclerae Neck: trachea midline, no thyromegaly Respiratory: normal respiratory effort, lungs clear to auscultation Cardiovascular: RRR, no murmur, no edema Gastrointestinal (Abdomen): soft, NT, ND, BS +, Musculoskeletal: no cyanosis or clubbing, extremities motor strength 5/5 Neurologic: patellar DTR's 2+ bilat, sensation intact Psychiatric: A+Ox3, euthymic affect Results & Data Vital Signs (Past 12 Hours) Vital Signs Temp Pulse Pulse Resp BP Pulse Ox O2 Del Method 08/11/22 11:11 37.1 C 77 18 109/70 96 Room Air 08/11/22 07:54 74 08/11/22 07:39 36.8 C 86 18 116/78 97 Room Air 08/11/22 04:59 36.8 C 77 20 101/65 97 Room Air 08/11/22 02:31 88 Laboratory Results Abnormal lab results 08/10/22 08/11/22 08/11/22 Range/Units 16:43 06:14 07:20 RBC 3.44 L (4.70-6.10) M/uL Hgb 9.8 L (14.0-18.0) g/dl Hct 30.6 L (42.0-52.0) % RDW Std Deviation 49.3 H (36.4-46.3) fL RDW Coeff of Adrianna 15.1 H (11.5-14.5) % MPV 9.2 L (9.4-12.4) fL Lymph # (Auto) 3.68 H (1.2-3.4) K/uL BUN (6-23) mg/dl Creatinine (0.6-1.4) mg/dl Glucose (70-99(Fasting)) mg/dl POC Glucose 102 H 177 H (70-99) mg/dl Calcium (8.6-10.3) mg/dl Magnesium (1.7-2.4) mg/dl 08/11/22 08/11/22 Range/Units 07:20 11:05 RBC (4.70-6.10) M/uL Hgb (14.0-18.0) g/dl Hct (42.0-52.0) % RDW Std Deviation (36.4-46.3) fL RDW Coeff of Adrianna (11.5-14.5) % MPV (9.4-12.4) fL Lymph # (Auto) (1.2-3.4) K/uL BUN 39 H (6-23) mg/dl Creatinine 2.74 H D (0.6-1.4) mg/dl Glucose 189 H (70-99(Fasting)) mg/dl POC Glucose 174 H (70-99) mg/dl Calcium 8.0 L (8.6-10.3) mg/dl Magnesium 1.6 L (1.7-2.4) mg/dl
--- NOTE | 2022-08-11 12:58 | Nephrology Consultation ---
Date of Consultation August 11, 2022 Assessment & Plan (1) KRISTI (acute kidney injury): Non-oliguric. Electrolytes acceptable. Volume status euvolemic. CT did not demonstrate evidence of obstruction. Bladder scan q shift if no void. IV NSS switched to plasmalyte infusion. Document strict I/O's. Repeat metabolic profile tomorrow AM. Medications are currently appropriately dosed for kidney function. No change in tacrolimus dosing at this time. 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 Baseline creatinine 2.0 mg/dL. Does not routinely follow with nephrology. (3) Partial small bowel obstruction: Clinically improving. General surgery following. Tolerating clear liquid diet. (4) Lung replaced by transplant: Continue IS as Rx. No changes at this time. Will continue to monitor kidney func tion closely with management of intravascular volume depletion. History of Present Illness Reason for Consultation: Cr 2.7 Requesting Physician: Meghan Angel Attending Physician: Oc Emmanuel MD History of Present Illness Mr. Ethan Gomez is a 37 year-old male with cystic fibrosis and history of lung transplant in 2016. He has chronic kidney disease IIIb with a baseline creatinine of ~2.0 mg/dL. History of KRISTI in the past attributed to hemodynamic changes associated with prerenal azotemia. Ethan reports that CKD has been attributed to CNI nephropathy. His transplant group in [place] has been monitoring. Ethan does not routinely follow with a music theory professor. He was admitted to [facility] with abdominal pain, constipation, and imaging suggestive of partial SBO. Ethan has been treated with a bowel regimen Medical history is notable for pancreatic insufficiency, IDDM, gastroparesis, history of Blayne fundoplication, and osteopenia. Ethan follows with Dr. Mcduffie in the [facility] clinic regarding urethral stricture. He denies any change in urinary symptoms. Chronic IS therapy with tacrolimus, everolimus, and prednisone 5 mg daily. No recent changes in therapy. No notable NSAID use. No iodinated contrast exposure. CT demonstrated some chronic changes in the bladder. No evidence of obstruction. Ethan is non-oliguric. Abdominal pain is improving. Tolerating PO clear liquid diet. IVF infusing. No fluid retention or edema. Allergies Allergy/AdvReac Type Severity Reaction Status Date / Time vancomycin Allergy Intermediate Red man Verified 10/19/21 12:09 syndrome Home Medications Medication Instructions Recorded Confirmed Type albuterol sulfate 90 mcg/actuation 2 puff inhalation Q4H PRN 08/10/18 08/10/22 History aerosol inhaler (Ventolin HFA) Shortness Of Breath Or Wheezing ferrous sulfate 325 mg (65 mg 325 mg PO BID 08/10/18 08/10/22 History iron) tablet,delayed release fexofenadine 180 mg tablet 180 mg PO QAM PRN nasal congestion 08/10/18 08/10/22 History (Radha Allergy) chjayo-cgeashru-fakinvq 6 cap PO UD 08/10/18 08/10/22 History 40,000-126,000-168,000 unit capsule, delay rel (Zenpep) magnesium 250 mg tablet 250 mg PO BID 08/10/18 08/10/22 History metoprolol tartrate 50 mg tablet 50 mg PO BID 08/10/18 08/10/22 History prednisone 5 mg tablet 5 mg PO QAM 08/10/18 08/10/22 History valganciclovir 450 mg tablet 450 mg PO DAILY 08/10/18 08/10/22 History everolimus (immunosuppressive) 0.5 1 mg PO BID 10/04/19 08/10/22 History mg tablet (Zortress) acetaminophen 325 mg tablet 650 mg PO Q6H PRN fever/pain 03/23/20 08/10/22 History (Tylenol) blood sugar diagnostic (Accu-Chek #500 ea 04/08/20 08/10/22 Rx Guide test strips) tacrolimus 1 mg capsule, 2 mg PO BID 10/13/21 08/10/22 History immediate-release ergocalciferol (vitamin D2) 1,250 1,250 mcg PO DAILY 10/16/21 08/10/22 History mcg (50,000 unit) capsule (Vitamin D2) Novolog U-100 Insulin aspart 100 See Rx Instructions continuous 11/28/21 Rx unit/mL subcutaneous solution subcutaneous infusion UD 90 days (insulin aspart U-100) #90 mL metoclopramide HCl 10 mg tablet 10 mg PO ACHS 08/10/22 08/10/22 History Patient History Medical History (Updated 08/11/22 @ 13:42 by Jose Romero DO) CKD (chronic kidney disease), stage III COVID-19 Cystic fibrosis (09/13/13) 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 History of Alyin fundoplication Laparoscopic aylin, done in [place] Lung transplant status, bilateral 5 1/2 years ago, [facility] [place] Smoking Status: Never smoker Second Hand Exposure: No; Do You Dip or Chew Tobacco: No; Hx Alcohol Use: Yes Alcohol type: beer, wine and hard liquor Hx Substance Use: No Preferred Language: Surinamese Communication Ability: Effective Senior Advisory Required: No Beliefs That Will Affect Care: None Current Living Situation: Family Current Living Situation Comment: lives with dad Other Information That Helps Us Care for You: No Feels Safe at Home: Yes Safety Concerns: Feels Safe At This Time Assistive Devices: Glasses Review of Systems Review of Systems: All systems reviewed & are unremarkable except as noted in HPI & below Physical Exam Constitutional: well developed and + thin; no acute distress Eyes: + anicteric sclerae; no corneal abnormality ENMT: Mouth: no oral mucosal abnormality and oral mucous membranes not dry Neck: normal visual inspection and trachea midline Respiratory: normal respiratory effort; no respiratory distress Cardiovascular: Rate/Rhythm: regular rate Heart Sounds: normal S1 and normal S2 Extremities: no edema Musculoskeletal: Extremities: no cyanosis and no clubbing Skin: normal turgor; no lesions Neurologic: Motor/Sensory: no tremor and no asterixis Psychiatric: Orientation: alert and oriented x 3 Results & Data Vital Signs (Past 12 Hours) Vital Signs Temp Pulse Pulse Resp BP Pulse Ox O2 Del Method 08/11/22 11:11 37.1 C 77 18 109/70 96 Room Air 08/11/22 07:54 74 08/11/22 07:39 36.8 C 86 18 116/78 97 Room Air 08/11/22 04:59 36.8 C 77 20 101/65 97 Room Air 08/11/22 02:31 88 Laboratory Results Laboratory Results - last 24 hr 08/10/22 08/11/22 08/11/22 16:43 06:14 07:20 WBC RBC Hgb Hct MCV MCH MCHC RDW Std Deviation RDW Coeff of Adrianna Plt Count MPV Immature Gran % (Auto) Neut % (Auto) Lymph % (Auto) [place] % (Auto) Eos % (Auto) Baso % (Auto) Neut # (Auto) Lymph # (Auto) [place] # (Auto) Eos # (Auto) Baso # (Auto) Immature Gran # (Auto) Sodium Potassium Chloride Carbon Dioxide Anion Gap BUN Creatinine Est Cr Clr Drug Dosing Est GFR ( Amer) Est GFR (Non-Af Amer) BUN/Creatinine Ratio Glucose POC Glucose 102 H 177 H Calcium Phosphorus Magnesium Tacrolimus Pending 08/11/22 08/11/22 08/11/22 07:20 07:20 11:05 WBC 10.50 RBC 3.44 L Hgb 9.8 L Hct 30.6 L MCV 89.0 MCH 28.5 MCHC 32.0 RDW Std Deviation 49.3 H RDW Coeff of Adrianna 15.1 H Plt Count 289 MPV 9.2 L Immature Gran % (Auto) 0.5 Neut % (Auto) 55.8 Lymph % (Auto) 35.0 [place] % (Auto) 4.4 Eos % (Auto) 3.8 Baso % (Auto) 0.5 Neut # (Auto) 5.86 Lymph # (Auto) 3.68 H [place] # (Auto) 0.46 Eos # (Auto) 0.40 Baso # (Auto) 0.05 Immature Gran # (Auto) 0.05 Sodium 136 Potassium 4.8 Chloride 107 Carbon Dioxide 22 Anion Gap 7 BUN 39 H Creatinine 2.74 H D Est Cr Clr Drug Dosing 28.9 Est GFR ( Amer) 32.3 Est GFR (Non-Af Amer) 27.9 BUN/Creatinine Ratio 14.2 Glucose 189 H POC Glucose 174 H Calcium 8.0 L Phosphorus 4.7 Magnesium 1.6 L Tacrolimus Diagnostic Findings CT OF THE ABDOMEN AND PELVIS WITHOUT CONTRAST CLINICAL HISTORY: Right lower quadrant pain. Nausea. COMPARISON STUDY: CT of the abdomen and pelvis August 10, 2018. Right upper quadrant ultrasound October 04, 2019. FINDINGS: A moderate-sized hiatal hernia with partially intrathoracic stomach is present. There is a small amount of ascites within the hernia. Subpleural reticulation and groundglass opacities within the lower lungs are noted. There is no pneumatosis, free air or portal venous gas. Evaluation of the abdomen and pelvis is suboptimal on this unenhanced examination. Unenhanced images of the liver, spleen and adrenal glands are unremarkable. There is fatty atrophy of the pancreas. No biliary or pancreatic ductal dilatation is present. There is no evidence for acute appendicitis. There is moderate wall thickening of numerous small bowel loops. The wall appears edematous. There is associated mesenteric stranding and a small amount of ascites. Several small bowel loops are mildly dilated and fluid-filled as well. A well-defined transition point is not identified. The right colon is also mildly dilated. There is a moderate amount of stool within the colon. No colonic transition point is identified. There is no fluid collection. Mild bladder wall thickening is unchanged. There is trace ascites within the pelvis. No acute fractures are present. There is no lymphadenopathy. Small bilateral renal calculi are noted. These measure up to 4 mm. There are no ureteral calculi. There is no hydronephrosis. IMPRESSION: 1. Edematous wall thickening of numerous small bowel loops as well as mild wall thickening of the right colon with associated mesenteric stranding and a small amount of ascites. In addition, multiple small bowel loops are mildly dilated and fluid-filled raising the possibility of a partial small bowel obstruction although no discrete contusion point. The findings represent a nonspecific enterocolitis however distal intestinal obstruction syndrome is a consideration given cystic fibrosis. 2. No evidence for acute appendicitis. 3. Bilateral nephrolithiasis. No ureteral calculi. No hydronephrosis. 4. Mild bladder wall thickening, unchanged. 5. Fatty atrophy of the pancreas consistent with cystic fibrosis. PG Care Time/CCT Total # of Minutes Spent Total Time Spent with Patient: Total time spent is greater than 50% in coordination of care (as documented) at patient's floor/unit and/or counseling patient: Coding Level of Care Code 43229 IN/OBS CONSULT LVL 4,60M Diagnoses KRISTI (acute kidney injury) N17.9 CKD (chronic kidney disease), stage III N18.3 Partial small bowel obstruction K56.600 Lung replaced by transplant Z94.2
[2022-08-11] MEDS ORDERED: SODIUM CHLORIDE 0.9% 1000ML 500 ML IV ONE (13:46)
[2022-08-11] MEDS: PLASMA-LYTE A 1,000 ML IV SCH ×2 (14:45→23:43)
[2022-08-11 22:16] LABS: BUN Creatinine Ratio 13.7 (10-20); Calcium 7.7 mg/dl (8.6-10.3); Creatinine Clr Calc Pharmacy 30.9 ml/min; Est GFR (African American) 35.1 ml/min; Est GFR (Non-African American) 30.3 ml/min; Potassium 4.5 mmol/L (3.5-5.1)
[2022-08-12 02:58] LABS: Appearance Urine Clear (Clear); Bacteria Urine Automated Negative (Negative); Bilirubin Urine Negative (Negative); Blood Urine 1+ (Negative); Color Urine Yellow; Epithelial Cell Urine Auto >30 /lpf (0-5); Glucose Urine UA Negative (Negative); Ketones Urine Negative (Negative); Leukocyte Esterase Urine 2+ (Negative); Nitrite Urine Negative (Negative); Protein Urine Negative (Negative); Specific Gravity Urine 1.012 (1.000-1.030); Urobilinogen Urine Negative (Negative); WBC Urine Automated >30 /hpf (0-5)
[2022-08-12] MEDS ORDERED: HEPARIN 100 UNIT/ML 5ML FLUSH FLUSH PRN (03:42)
[2022-08-12 05:57] LABS: Hematocrit (blood only) 28.9 % (42.0-52.0); Hemoglobin 9.2 g/dl (14.0-18.0); Mean Corpuscular Hemoglobin 28.1 pg (25.0-34.0); Mean Corpuscular Hgb Conc 31.8 g/dL (32.0-36.0); Mean Corpuscular Volume 88.4 fL (80.0-100.0); Mean Platelet Volume 9.2 fL (9.4-12.4); Platelet Count 283 K/uL (130-400); RDW Coefficient of Variation 14.8 % (11.5-14.5); RDW Standard Deviation 47.8 fL (36.4-46.3); Red Blood Count 3.27 M/uL (4.70-6.10); White Blood Count 9.36 K/ul (4.8-10.8)
[2022-08-12 06:34] LABS: Albumin Level 2.7 gm/dl (3.4-5.0); BUN Creatinine Ratio 11.6 (10-20); Calcium 7.7 mg/dl (8.6-10.3); Creatinine Clr Calc Pharmacy 32.1 ml/min; Est GFR (African American) 36.1 ml/min; Est GFR (Non-African American) 31.2 ml/min; Magnesium 2.1 mg/dl (1.7-2.4); Phosphorus 3.1 mg/dl (2.5-4.9)
[2022-08-12] MEDS: PLASMA-LYTE A 1,000 ML IV SCH (07:27)
--- NOTE | 2022-08-12 07:48 | Hospitalist Progress Note ---
Date of Service August 12, 2022 Assessment & Plan (1) Cystic fibrosis: (2) Abdominal pain: Plan: On admission - Transplant Team at [facility] was called and notified about the patients status and admission to the hospital. Discussed with Dr. Waleska See (cell: [phone]) - Concerned for JOYCE - distal intestinal obstructive syndrome. Usually pt requires NGT, barium enema with IR if high stool burden however at this time does not appear that way on CT. Go-lytely PO now- but if nauseous and vomits will need to place NGT. Low threshold for possible transfer if pt is not improved within the next 24 hrs. Hold everlimus. Continue tacrolimus, 1 mg Q12H- starting now and then 6 am and 6pm and will draw tacromilus labs. , - if he vomits it then will need sublingual and needs dose changes - call back to discuss those dosing recommendations. Cont prednisone for now but if doesnt tolerate then switch to solumedrol 4 mg IV. If any decompensation, then will need stress dosing and likely transfer. - WBC 17.19, neutrophils 13.94 indicating a left shift, Hgb 11.7, HCT 36.5, PLT 283. - Start on Zosyn IV with leukocytosis - CT reviewed showin. Edematous wall thickening of numerous small bowel loops as well as mild wall thickening of the right colon with associated mesenteric stranding and a small amount of ascites. In addition, multiple small bowel loops are mildly dilated and fluid-filled raising the possibility of a partial small bowel obs truction although no discrete contusion point. The findings represent a nonspecific enterocolitis however distal intestinal obstruction syndrome is a consideration given cystic fibrosis. 2. No evidence for acute appendicitis. 3. Bilateral nephrolithiasis. No ureteral calculi. No hydronephrosis. 4. Mild bladder wall thickening, unchanged. 5. Fatty atrophy of the pancreas consistent with cystic fibrosis. - Consult GI and General Surgery - Dr. Angel - plan for IVFs, NPO except meds, advance diet if tolerates and moves bowels, no plans for surgery at this time and will continue with conservative management - Lipase < 3 - Will check stool studies and PCR to r/o infectious cause with hx of being on immunosuppressants 08/11 -patient had a bowel movement yesterday after GoLytely. Unfortunately stool studies were not obtained. Currently denies any abdominal pain. Denies nausea. White blood cell count now normalized. We will advance diet to clear liquid. 08/12 -patient is tolerating full liquid diet, denies any more abdominal pain. Denies any nausea or vomiting. WBC normalized yesterday. (3) Lung transplant status, bilateral: Plan: - Underwent double lung transplant for cystic fibrosis on 02/22/2016. Basiliximab induction, CMV mismatch, EBV +/+, complicated by severe PGD requiring post operative VV ECMO and open chest for a few days, recovered quickly and was weaned off O2 after about 10 days. - CoVID -19 infection in mid July 2021 now resolved with outpatient MAB and levofloxacin. - Pt is on immunosuppressant therapies including zenpep, tacrolimus, everolimus, valgancyclovir, prednisone 5 mg daily, He is OFF xifata and azithromycin mwf for past 6 months. - Transplant team rec holding everolimus but will continue all other therapies - follows with transplant team in [facility] with Dr. 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 Bobbi Mckeon (5) CKD (chronic kidney disease), stage III: Plan: - Cr. chronically in the mid 2s since 2020, today Cr. is 2.03, BUN 27, trend with am labs - cont. IVF NS (6) GERD (gastroesophageal reflux disease): Plan: - Cont nexium, EGD hx in 2017 notable for LA grade C reflux esophagitis with possible short segment Barretts endoscopically but biopsy negative, and large hiatal hernia, s/p fundoplication in July 2020 - Plan was to possibly repeat alejandra/manometry to assess as barium swallow - pt reports this was done last week but was negative for specific findings regarding gastroparesis. Previously revealed moderate paraesophageal hernia containing the intact Hang wrap. (7) Vitamin D deficiency: Plan: - on supplement - planned for DEXA scan this year DVT ppx: - teds, scds CODE: FULL code Dispo: Plan to DC home Admission and Anticipated Discharge Date Admission Date: August 10, 2022 Subjective Pt seen in follow-up of abdominal pain, partial bowel obstruction, history of cystic fibrosis, status post lung transplant Patient is currently lying in bed, in no acute distress, denies any more abdominal pain Had a bowel movement after admission. Unfortunately stool sample was not obtained. Patient denies any nausea, vomiting. No fevers chills. Tolerating full liquid diet. Review of Systems Review of Systems: All systems reviewed & are unremarkable except as noted in Subjective Physical Exam Physical Exam: Constitutional:I WD/WN, M in NAD Eyes: PERRL, EOMI, conju nctivae normal, an icteric sclerae ENMT: external ear and n ose normal, oropha rynx normal Neck: supple Respiratory: normal respiratory effort, lungs joe ar to auscultation Cardiovascular:I RRR, no murmur, no edema Chest (Breasts): Chest: normal insp ection of chest Gastrointestinal ( Abdomen): normal bowel sound s, soft, nontender Musculoskeletal: extremities motor strength 5/5 Skin: no rashes, warm an d dry Neurologic: PERRL, EOMI, no fa ce palsy, no dysar thria, moves extre mities Psychiatric: A+Ox3, euthymic af fect Results & Data Results & Data Vital Signs (Past 12 Hours) Vital Signs Temp Pulse Pulse Resp BP Pulse Ox O2 Del Method 08/12/22 07:33 36.6 C 73 18 110/74 98 Room Air 08/12/22 03:01 36.5 C 77 18 109/74 97 Room Air 08/12/22 00:14 79 08/11/22 23:17 36.7 C 69 18 145/82 H 96 Room Air 08/11/22 20:54 80 133/80 Laboratory Results 08/12/22 08/12/22 08/12/22 Range/Units 07:06 05:30 05:30 WBC 9.36 (4.8-10.8) K/ul RBC 3.27 L (4.70-6.10) M/uL Hgb 9.2 L (14.0-18.0) g/dl Hct 28.9 L (42.0-52.0) % MCV 88.4 (80.0-100.0) fL MCH 28.1 (25.0-34.0) pg MCHC 31.8 L (32.0-36.0) g/dL RDW Std Deviation 47.8 H (36.4-46.3) fL RDW Coeff of Adrianna 14.8 H (11.5-14.5) % Plt Count 283 (130-400) K/uL MPV 9.2 L (9.4-12.4) fL Sodium 140 (136-145) mmol/L Potassium 4.0 (3.5-5.1) mmol/L Chloride 111 H (98-107) mmol/L Carbon Dioxide 26 (21-32) mmol/L Anion Gap 3 (3-11) BUN 29 H (6-23) mg/dl Creatinine 2.50 H (0.6-1.4) mg/dl Est Cr Clr Drug Dosing 32.1 ml/min Est GFR ( Amer) 36.1 ml/min Est GFR (Non-Af Amer) 31.2 ml/min BUN/Creatinine Ratio 11.6 (10-20) Glucose 49 L* (70-99(Fasting)) mg/dl POC Glucose 74 (70-99) mg/dl Calcium 7.7 L (8.6-10.3) mg/dl Phosphorus 3.1 D (2.5-4.9) mg/dl Magnesium 2.1 (1.7-2.4) mg/dl Albumin 2.7 L (3.4-5.0) gm/dl Urine Color Urine Appearance (Clear) Urine pH (4.5-7.5) Ur Specific [place] (1.000-1.030) Urine Protein (Negative) Urine Glucose (UA) (Negative) Urine Ketones (Negative) Urine Blood (Negative) Urine Nitrite (Negative) Urine Bilirubin (Negative) Urine Urobilinogen (Negative) Ur Leukocyte Esterase (Negative) Urine WBC (Auto) (0-5) /hpf Urine RBC (Auto) (0-4) /hpf U Hyaline Cast (Auto) (0-5) /lpf U Epithel Cells (Auto) (0-5) /lpf Urine Bacteria (Auto) (Negative) Tacrolimus 08/12/22 08/12/22 08/11/22 Range/Units 05:30 02:35 21:36 WBC (4.8-10.8) K/ul RBC (4.70-6.10) M/uL Hgb (14.0-18.0) g/dl Hct (42.0-52.0) % MCV (80.0-100.0) fL MCH (25.0-34.0) pg MCHC (32.0-36.0) g/dL RDW Std Deviation (36.4-46.3) fL RDW Coeff of Adrianna (11.5-14.5) % Plt Count (130-400) K/uL MPV (9.4-12.4) fL Sodium 138 (136-145) mmol/L Potassium 4.5 (3.5-5.1) mmol/L Chloride 109 H (98-107) mmol/L Carbon Dioxide 24 (21-32) mmol/L Anion Gap 5 (3-11) BUN 35 H (6-23) mg/dl Creatinine 2.56 H (0.6-1.4) mg/dl Est Cr Clr Drug Dosing 30.9 ml/min Est GFR ( Amer) 35.1 ml/min Est GFR (Non-Af Amer) 30.3 ml/min BUN/Creatinine Ratio 13.7 (10-20) Glucose 145 H (70-99(Fasting)) mg/dl POC Glucose (70-99) mg/dl Calcium 7.7 L (8.6-10.3) mg/dl Phosphorus (2.5-4.9) mg/dl Magnesium (1.7-2.4) mg/dl Albumin (3.4-5.0) gm/dl Urine Color Yellow Urine Appearance Clear (Clear) Urine pH 5.0 (4.5-7.5) Ur Specific [place] 1.012 (1.000-1.030) Urine Protein Negative (Negative) Urine Glucose (UA) Negative (Negative) Urine Ketones Negative (Negative) Urine Blood 1+ H (Negative) Urine Nitrite Negative (Negative) Urine Bilirubin Negative (Negative) Urine Urobilinogen Negative (Negative) Ur Leukocyte Esterase 2+ H (Negative) Urine WBC (Auto) >30 H (0-5) /hpf Urine RBC (Auto) 10-30 H (0-4) /hpf U Hyaline Cast (Auto) 1-5 (0-5) /lpf U Epithel Cells (Auto) >30 H (0-5) /lpf Urine Bacteria (Auto) Negative (Negative) Tacrolimus Pending 08/11/22 08/11/22 08/11/22 Range/Units 20:06 16:22 11:05 WBC (4.8-10.8) K/ul RBC (4.70-6.10) M/uL Hgb (14.0-18.0) g/dl Hct (42.0-52.0) % MCV (80.0-100.0) fL MCH (25.0-34.0) pg MCHC (32.0-36.0) g/dL RDW Std Deviation (36.4-46.3) fL RDW Coeff of Adrianna (11.5-14.5) % Plt Count (130-400) K/uL MPV (9.4-12.4) fL Sodium (136-145) mmol/L Potassium (3.5-5.1) mmol/L Chloride (98-107) mmol/L Carbon Dioxide (21-32) mmol/L Anion Gap (3-11) BUN (6-23) mg/dl Creatinine (0.6-1.4) mg/dl Est Cr Clr Drug Dosing ml/min Est GFR ( Amer) ml/min Est GFR (Non-Af Amer) ml/min BUN/Creatinine Ratio (10-20) Glucose (70-99(Fasting)) mg/dl POC Glucose 185 H 178 H 174 H (70-99) mg/dl Calcium (8.6-10.3) mg/dl Phosphorus (2.5-4.9) mg/dl Magnesium (1.7-2.4) mg/dl Albumin (3.4-5.0) gm/dl Urine Color Urine Appearance (Clear) Urine pH (4.5-7.5) Ur Specific [place] (1.000-1.030) Urine Protein (Negative) Urine Glucose (UA) (Negative) Urine Ketones (Negative) Urine Blood (Negative) Urine Nitrite (Negative) Urine Bilirubin (Negative) Urine Urobilinogen (Negative) Ur Leukocyte Esterase (Negative) Urine WBC (Auto) (0-5) /hpf Urine RBC (Auto) (0-4) /hpf U Hyaline Cast (Auto) (0-5) /lpf U Epithel Cells (Auto) (0-5) /lpf Urine Bacteria (Auto) (Negative) Tacrolimus 08/11/22 08/11/22 Range/Units 07:20 07:20 WBC (4.8-10.8) K/ul RBC (4.70-6.10) M/uL Hgb (14.0-18.0) g/dl Hct (42.0-52.0) % MCV (80.0-100.0) fL MCH (25.0-34.0) pg MCHC (32.0-36.0) g/dL RDW Std Deviation (36.4-46.3) fL RDW Coeff of Adrianna (11.5-14.5) % Plt Count (130-400) K/uL MPV (9.4-12.4) fL Sodium 136 (136-145) mmol/L Potassium 4.8 (3.5-5.1) mmol/L Chloride 107 (98-107) mmol/L Carbon Dioxide 22 (21-32) mmol/L Anion Gap 7 (3-11) BUN 39 H (6-23) mg/dl Creatinine 2.74 H D (0.6-1.4) mg/dl Est Cr Clr Drug Dosing 28.9 ml/min Est GFR ( Amer) 32.3 ml/min Est GFR (Non-Af Amer) 27.9 ml/min BUN/Creatinine Ratio 14.2 (10-20) Glucose 189 H (70-99(Fasting)) mg/dl POC Glucose (70-99) mg/dl Calcium 8.0 L (8.6-10.3) mg/dl Phosphorus 4.7 (2.5-4.9) mg/dl Magnesium 1.6 L (1.7-2.4) mg/dl Albumin (3.4-5.0) gm/dl Urine Color Urine Appearance (Clear) Urine pH (4.5-7.5) Ur Specific [place] (1.000-1.030) Urine Protein (Negative) Urine Glucose (UA) (Negative) Urine Ketones (Negative) Urine Blood (Negative) Urine Nitrite (Negative) Urine Bilirubin (Negative) Urine Urobilinogen (Negative) Ur Leukocyte Esterase (Negative) Urine WBC (Auto) (0-5) /hpf Urine RBC (Auto) (0-4) /hpf U Hyaline Cast (Auto) (0-5) /lpf U Epithel Cells (Auto) (0-5) /lpf Urine Bacteria (Auto) (Negative) Tacrolimus Pending Medications Administered Current Inpatient Medications Acetaminophen (Acetaminophen 325 Mg Tab) 650 mg PO Q4H PRN PRN Reason: Moderate Pain (Scale 4, 5, 6) Stop: 09/09/22 15:32 Lipase/Protease/Amylase (Pancreaze (Lipase 10,500u) Cap) 6 cap PO TIDM [facility] Stop: 09/11/22 11:59 Last Admin: 08/12/22 11:34 Dose: 6 cap Lipase/Protease/Amylase (Pancreaze (Lipase 10,500u) Cap) 1 cap PO UD PRN PRN Reason: Pancreatic insufficiency Stop: 09/11/22 08:56 Ferrous Sulfate (Ferrous Sulfate 325 Mg Tab) 325 mg PO BIDM [facility] Stop: 09/09/22 15:32 Last Admin: 08/11/22 08:15 Dose: Not Given Fexofenadine HCl (Fexofenadine Hcl 180 Mg Tab) 180 mg PO QAM PRN PRN Reason: nasal congestion Stop: 09/09/22 15:32 Heparin Sodium (Porcine) (Heparin 100 Unit/Ml 5ml Flush) 5 ml FLUSH PRN PRN PRN Reason: Flush Stop: 09/11/22 03:41 Piperacillin Sod/Tazobactam (Sod 4.5 gm/ Dextrose) 120 mls @ 30 mls/hr IV Q8H [facility]; Protocol Stop: 08/14/22 15:29 Last Infusion: 08/12/22 12:51 Dose: Infused Parenteral Electrolytes (Plasma-Lyte A Ph 7.4) 1,000 mls @ 100 mls/hr IV .Q10H [facility] Stop: 09/10/22 13:44 Last Admin: 08/12/22 07:27 Dose: 125 mls/hr Magnesium Oxide (Magnesium Oxide 400 Mg Tab) 200 mg PO BID [facility] Stop: 09/09/22 20:59 Last Admin: 08/12/22 08:52 Dose: 200 mg Metoclopramide HCl (Metoclopramide Hcl 10 Mg Tablet) 10 mg PO ACHS [facility] Stop: 09/09/22 15:32 Last Admin: 08/12/22 11:34 Dose: 10 mg Metoprolol Tartrate (Metoprolol Tartrate 50 Mg Tab) 50 mg PO BID [facility] Stop: 09/09/22 20:59 Last Admin: 08/12/22 08:52 Dose: 50 mg Ondansetron HCl (Ondansetron Inj 2 Mg/Ml 2 Ml Vial) 4 mg IV Q4H PRN PRN Reason: Nausea And Vomiting Stop: 09/09/22 15:32 Polyethylene Glycol (Polyethylene (Miralax) 17 Gm Pack) 17 gm PO DAILY [place] Stop: 09/09/22 15:32 Last Admin: 08/12/22 08:52 Dose: 17 gm Prednisone (Prednisone 5 Mg Tab) 5 mg PO QAM [facility] Stop: 09/09/22 15:32 Last Admin: 08/12/22 08:52 Dose: 5 mg Tacrolimus (Tacrolimus 1 Mg Cap) 2 mg PO BID [facility] Stop: 09/09/22 15:32 Last Admin: 08/12/22 08:52 Dose: 2 mg Valganciclovir (Valganciclovir Hcl 450 Mg Tablet) 450 mg PO DAILY [place] Stop: 09/09/22 15:32 Last Admin: 08/12/22 08:52 Dose: 450 mg
[2022-08-12] MEDS: METOCLOPRAMIDE HCL 10 MG TABLET PO SCH ×2 (08:51→11:34)
[2022-08-12] MEDS: PIPERACILLIN/TAZOBACTAM 4.5 GM in DEXTROSE 5% 100 ML IV SCH (08:51)
[2022-08-12] MEDS: TACROLIMUS 1 MG CAP PO SCH (08:52)
[2022-08-12] MEDS: METOPROLOL TARTRATE 50 MG TAB PO SCH (08:52)
[2022-08-12] MEDS: MAGNESIUM OXIDE 400 MG TAB PO SCH (08:52)
[2022-08-12] MEDS: VALGANCICLOVIR HCL 450 MG TABLET PO SCH (08:52)
[2022-08-12] MEDS: predniSONE 5 MG TAB PO SCH (08:52)
[2022-08-12] MEDS: POLYETHYLENE (MIRALAX) 17 GM PACK PO SCH (08:52)
[2022-08-12] MEDS ORDERED: PANCREAZE (LIPASE 10,500U) CAP PO PRN (08:57)
--- NOTE | 2022-08-12 11:06 | Nephrology Progress Note ---
Date of Service August 12, 2022 Assessment & Plan (1) KRISTI (acute kidney injury): Plan: Non-oliguric. Electrolytes acceptable. Volume status euvolemic. CT did not demonstrate evidence of obstruction. Clinically consistent with prerenal component. Creatinine slightly improved this AM. UA +blood and LE. Microscopy with >30 WBC and 10-30 RBC. Will continue plasmalyte infusion at 100 ml/hr for now. Repeat metabolic profile ordered for tomorrow AM. Document I/O's. Medications are currently appropriately dosed for kidney function. No change in tacrolimus dosing at this time. If discharged, close outpatient follow up labs would be encouraged. 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 Baseline creatinine 2.0 mg/dL. Does not routinely follow with nephrology. (3) Partial small bowel obstruction: Plan: Clinically improving. General surgery following. Tolerating full liquid diet. (4) Lung replaced by transplant: Plan: Continue IS as Rx. No changes at this time. Will continue to monitor kidney function closely with management of intravascular volume depletion. Admission and Anticipated Discharge Date Admission Date: August 10, 2022 Subjective No acute events overnight. Ethan feels well this AM. Abdominal pain improved. Tolerating full liquid diet. Tolerating IVF well. No fluid retention or edema. Some chronic urinary symptoms including weak stream but Ethan denies any pain, burning, discomfort. He was hopeful to potentially be discharged today. Review of Systems Review of Systems: All systems reviewed & are unremarkable except as noted in HPI & below Physical Exam Constitutional: well developed and + thin; no acute distress Eyes: + anicteric sclerae; no corneal abnormality ENMT: Mouth: no oral mucosal abnormality and oral mucous membranes not dry Neck: normal visual inspection and trachea midline Respiratory: normal respiratory effort; no respiratory distress Cardiovascular: Rate/Rhythm: regular rate Heart Sounds: normal S1 and normal S2 Extremities: no edema Musculoskeletal: Extremities: no cyanosis and no clubbing Skin: normal turgor; no lesions Neurologic: Motor/Sensory: no tremor and no asterixis Psychiatric: Orientation: alert and oriented x 3 Results & Data Vital Signs (Past 12 Hours) Vital Signs Temp Pulse Pulse Resp BP Pulse Ox O2 Del Method 08/12/22 07:33 36.6 C 73 18 110/74 98 Room Air 08/12/22 03:01 36.5 C 77 18 109/74 97 Room Air 08/12/22 00:14 79 08/11/22 23:17 36.7 C 69 18 145/82 H 96 Room Air Laboratory Results Laboratory Results - last 24 hr 08/11/22 08/11/22 08/11/22 11:05 16:22 20:06 WBC RBC Hgb Hct MCV MCH MCHC RDW Std Deviation RDW Coeff of Adrianna Plt Count MPV Sodium Potassium Chloride Carbon Dioxide Anion Gap BUN Creatinine Est Cr Clr Drug Dosing Est GFR ( Amer) Est GFR (Non-Af Amer) BUN/Creatinine Ratio Glucose POC Glucose 174 H 178 H 185 H Calcium Phosphorus Magnesium Albumin Urine Color Urine Appearance Urine pH Ur Specific [place] Urine Protein Urine Glucose (UA) Urine Ketones Urine Blood Urine Nitrite Urine Bilirubin Urine Urobilinogen Ur Leukocyte Esterase Urine WBC (Auto) Urine RBC (Auto) U Hyaline Cast (Auto) U Epithel Cells (Auto) Urine Bacteria (Auto) Tacrolimus 08/11/22 08/12/22 08/12/22 21:36 02:35 05:30 WBC RBC Hgb Hct MCV MCH MCHC RDW Std Deviation RDW Coeff of Adrianna Plt Count MPV Sodium 138 Potassium 4.5 Chloride 109 H Carbon Dioxide 24 Anion Gap 5 BUN 35 H Creatinine 2.56 H Est Cr Clr Drug Dosing 30.9 Est GFR ( Amer) 35.1 Est GFR (Non-Af Amer) 30.3 BUN/Creatinine Ratio 13.7 Glucose 145 H POC Glucose Calcium 7.7 L Phosphorus Magnesium Albumin Urine Color Yellow Urine Appearance Clear Urine pH 5.0 Ur Specific [place] 1.012 Urine Protein Negative Urine Glucose (UA) Negative Urine Ketones Negative Urine Blood 1+ H Urine Nitrite Negative Urine Bilirubin Negative Urine Urobilinogen Negative Ur Leukocyte Esterase 2+ H Urine WBC (Auto) >30 H Urine RBC (Auto) 10-30 H U Hyaline Cast (Auto) 1-5 U Epithel Cells (Auto) >30 H Urine Bacteria (Auto) Negative Tacrolimus Pending 08/12/22 08/12/22 08/12/22 05:30 05:30 07:06 WBC 9.36 RBC 3.27 L Hgb 9.2 L Hct 28.9 L MCV 88.4 MCH 28.1 MCHC 31.8 L RDW Std Deviation 47.8 H RDW Coeff of Adrianna 14.8 H Plt Count 283 MPV 9.2 L Sodium 140 Potassium 4.0 Chloride 111 H Carbon Dioxide 26 Anion Gap 3 BUN 29 H Creatinine 2.50 H Est Cr Clr Drug Dosing 32.1 Est GFR ( Amer) 36.1 Est GFR (Non-Af Amer) 31.2 BUN/Creatinine Ratio 11.6 Glucose 49 L* POC Glucose 74 Calcium 7.7 L Phosphorus 3.1 D Magnesium 2.1 Albumin 2.7 L Urine Color Urine Appearance Urine pH Ur Specific [place] Urine Protein Urine Glucose (UA) Urine Ketones Urine Blood Urine Nitrite Urine Bilirubin Urine Urobilinogen Ur Leukocyte Esterase Urine WBC (Auto) Urine RBC (Auto) U Hyaline Cast (Auto) U Epithel Cells (Auto) Urine Bacteria (Auto) Tacrolimus PG Care Time/CCT Total # of Minutes Spent Total Time Spent with Patient: Total time spent is greater than 50% in coordination of care (as documented) at patient's floor/unit and/or counseling patient: Coding Level of Care Code 01697 SUB INP/OBS CARE 3/50MIN Diagnoses KRISTI (acute kidney injury) N17.9 CKD (chronic kidney disease), stage III N18.3 Partial small bowel obstruction K56.600 Lung replaced by transplant Z94.2
--- NOTE | 2022-08-12 11:54 | Surgery Progress Note ---
Date of Service August 12, 2022 Assessment & Plan (1) Abdominal pain: (2) Nausea: Plan 37 yo male with cystic fibrosis presented to ED with complaint of cramping abdominal pain that progressively increased in severity starting yesterday after lunch with associated chills and nausea. CT scan with multiple edematous loops of small bowel and the right colon with dilated fluid filled small bowel without transition point likely enterocolitis vs partial SBO. Lactate normal. Leukocyt osis of 17. History of prior obstruction treated conservatively. Plan: No acute surgical intervention required Recommend hospitalist admission with conservative management conservative management : NPO for bowel rest, IV fluids, pain management as needed, antiemetics as needed May require laxatives given history of requiring them during past obstruction and CT scan showing moderate amount of stool in colon Consult GI for co-manage enterocolitis We agreed with -Low threshold for possible transfer if pt is not improved within the next 24 hrs. encourage ambulation repeat am labs will follow along Discussed with Dr. Angel who agrees with above. I saw pt at ER and reviewed pt's H/P, labs and CT scan with pt. I agreed with above treatment plans. Dr. Angel 08/11/2022 12:[address] Angel F/U PSBO, resolved clear diet today, WBC down to 10 from 17 Cr up to 2.7 from 2 may consult nephrology for CR 2.7 continue treatment. will F/U 08/12/2022 11:[address] Angel F/Kaley [facility], resolved tolerated diet pt can be discharged today, Follow up me or PCP 2 weeks, Admission and Anticipated Discharge Date Admission Date: August 10, 2022 Supervising Physician Co-Signing Physician Notes Pt seen and examined by me , care coordinated w/ Ebony Gillette PA-C, pls refer to her note above for further detail. Pt is a 37-year-old male with cystic fibrosis (s/p lung transplant) with pancreatic insufficiency and malnutrition, gastroparesis, immunosuppression therapy, lung transplant in 2016, Blayne fundoplication, DM due to aforementioned on insulin pump, osteopenia, vitamin D deficiency, GERD who presents with abdominal pain. CT abdomen obtained in ED - Edematous wall thickening of numerous small bowel loops as well as mild wall thickening of the right colon with associated mesenteric stranding. In addition, multiple small bowel loops are mildly dilated and fluid-filled raising the possibility of a partial small bowel obstruction although no discrete contusion point. The findings represent a nonspecific enterocolitis however distal intestinal obstruction syndrome is a consideration given cystic fibrosis. Currently patient is lying in bed, in no acute distress, says that he feels better since coming to the hospital. Reports having 2 episodes of diarrhea yesterday, and nausea. He is passing flatus. He is awake alert oriented answering appropriately. Lung sounds clear. Heart sounds regular. Abdomen is soft mildly tender to palpation at left lower quadrant. Patient moves extremities, no lower extremity edema. Skin is warm and dry. White blood cell count elevated, and given patient's immunocompromise status, Z osyn started, continue IV fluids. Check stool studies. GI and surgery consulted. Transplant team also contacted. Continue to closely monitor. MD Lien Subjective No acute events overnight. Ethan feels well this AM. Abdominal pain improved. Tolerating full liquid diet. Tolerating IVF well. No fluid retention or edema. Some chronic urinary symptoms including weak stream but Ethan denies any pain, burning, discomfort. He was hopeful to potentially be discharged today. 08/12/2022 11:50 Am, Dr. Angel doing fine, no abdominal pain, passed gas and small BM. no fever. Physical Exam Constitutional: WD/WN, vitals as above Eyes: PERRL, conjunctivae normal, anicteric sclerae Neck: trachea midline, no thyromegaly Respiratory: normal respiratory effort, lungs clear to auscultation Cardiovascular: RRR, no murmur, no edema Gastrointestinal (Abdomen): soft, NT, ND, BS +, Musculoskeletal: no cyanosis or clubbing, extremities motor strength 5/5 Neurologic: patellar DTR's 2+ bilat, sensation intact Psychiatric: A+Ox3, euthymic affect Results & Data Vital Signs (Past 12 Hours) Vital Signs Temp Pulse Pulse Resp BP Pulse Ox O2 Del Method 08/12/22 07:00 71 08/12/22 11:16 36.4 C L 67 18 114/77 97 Room Air 08/12/22 07:33 36.6 C 73 18 110/74 98 Room Air 08/12/22 03:01 36.5 C 77 18 109/74 97 Room Air 08/12/22 00:14 79 Laboratory Results Lab Results 08/10/22 08/10/22 08/10/22 Range/Units 05:25 05:25 06:35 WBC 17.19 H (4.8-10.8) K/ul RBC 4.09 L (4.70-6.10) M/uL Hgb 11.7 L (14.0-18.0) g/dl Hct 36.5 L (42.0-52.0) % MCV 89.2 (80.0-100.0) fL MCH 28.6 (25.0-34.0) pg MCHC 32.1 (32.0-36.0) g/dL RDW Std Deviation 48.2 H (36.4-46.3) fL RDW Coeff of Adrianna 14.8 H (11.5-14.5) % Plt Count 283 (130-400) K/uL MPV 9.0 L (9.4-12.4) fL Immature Gran % (Auto) 0.6 % Neut % (Auto) 81.1 % Lymph % (Auto) 10.6 % [place] % (Auto) 5.8 % Eos % (Auto) 1.6 % Baso % (Auto) 0.3 % Neut # (Auto) 13.94 H (1.40-6.50) K/uL Lymph # (Auto) 1.83 (1.2-3.4) K/uL [place] # (Auto) 0.99 H (0.11-0.59) K/uL Eos # (Auto) 0.27 (0-0.50) K/uL Baso # (Auto) 0.05 (0-0.2) K/uL Immature Gran # (Auto) 0.11 (0.01-0.20) K/uL Sodium 138 (136-145) mmol/L Potassium 4.1 (3.5-5.1) mmol/L Chloride 110 H (98-107) mmol/L Carbon Dioxide 22 (21-32) mmol/L Anion Gap 6 (3-11) BUN 27 H (6-23) mg/dl Creatinine 2.03 H (0.6-1.4) mg/dl Est Cr Clr Drug Dosing 38.1 ml/min Est GFR ( Amer) 46.5 ml/min Est GFR (Non-Af Amer) 40.1 ml/min BUN/Creatinine Ratio 13.3 (10-20) Glucose 90 (70-99(Fasting)) mg/dl POC Glucose (70-99) mg/dl Lactate 1.1 (0.4-2.0) mmol/L Calcium 7.6 L (8.6-10.3) mg/dl Phosphorus (2.5-4.9) mg/dl Magnesium (1.7-2.4) mg/dl Total Bilirubin 1.4 H (0.2-1.0) mg/dl AST 19 (13-39) U/L ALT 27 (7-52) U/L Alkaline Phosphatase 104 (34-104) U/L Total Protein 6.3 (6.0-8.3) gm/dl Albumin 3.2 L (3.4-5.0) gm/dl Globulin 3.1 (2.5-4.0) gm/dl Albumin/Globulin Ratio 1.0 (0.9-2) Lipase < 3 L (11-82) U/L Urine Color Urine Appearance (Clear) Urine pH (4.5-7.5) Ur Specific [place] (1.000-1.030) Urine Protein (Negative) Urine Glucose (UA) (Negative) Urine Ketones (Negative) Urine Blood (Negative) Urine Nitrite (Negative) Urine Bilirubin (Negative) Urine Urobilinogen (Negative) Ur Leukocyte Esterase (Negative) Urine WBC (Auto) (0-5) /hpf Urine RBC (Auto) (0-4) /hpf U Hyaline Cast (Auto) (0-5) /lpf U Epithel Cells (Auto) (0-5) /lpf Urine Bacteria (Auto) (Negative) SARS-CoV-2, RNA, NAAT (NEGATIVE) 08/10/22 08/10/22 08/11/22 Range/Units 16:43 Unknown 06:14 WBC (4.8-10.8) K/ul RBC (4.70-6.10) M/uL Hgb (14.0-18.0) g/dl Hct (42.0-52.0) % MCV (80.0-100.0) fL MCH (25.0-34.0) pg MCHC (32.0-36.0) g/dL RDW Std Deviation (36.4-46.3) fL RDW Coeff of Adrianna (11.5-14.5) % Plt Count (130-400) K/uL MPV (9.4-12.4) fL Immature Gran % (Auto) % Neut % (Auto) % Lymph % (Auto) % [place] % (Auto) % Eos % (Auto) % Baso % (Auto) % Neut # (Auto) (1.40-6.50) K/uL Lymph # (Auto) (1.2-3.4) K/uL [place] # (Auto) (0.11-0.59) K/uL Eos # (Auto) (0-0.50) K/uL Baso # (Auto) (0-0.2) K/uL Immature Gran # (Auto) (0.01-0.20) K/uL Sodium (136-145) mmol/L Potassium (3.5-5.1) mmol/L Chloride (98-107) mmol/L Carbon Dioxide (21-32) mmol/L Anion Gap (3-11) BUN (6-23) mg/dl Creatinine (0.6-1.4) mg/dl Est Cr Clr Drug Dosing ml/min Est GFR ( Amer) ml/min Est GFR (Non-Af Amer) ml/min BUN/Creatinine Ratio (10-20) Glucose (70-99(Fasting)) mg/dl POC Glucose 102 H 177 H (70-99) mg/dl Lactate (0.4-2.0) mmol/L Calcium (8.6-10.3) mg/dl Phosphorus (2.5-4.9) mg/dl Magnesium (1.7-2.4) mg/dl Total Bilirubin (0.2-1.0) mg/dl AST (13-39) U/L ALT (7-52) U/L Alkaline Phosphatase (34-104) U/L Total Protein (6.0-8.3) gm/dl Albumin (3.4-5.0) gm/dl Globulin (2.5-4.0) gm/dl Albumin/Globulin Ratio (0.9-2) Lipase (11-82) U/L Urine Color Urine Appearance (Clear) Urine pH (4.5-7.5) Ur Specific [place] (1.000-1.030) Urine Protein (Negative) Urine Glucose (UA) (Negative) Urine Ketones (Negative) Urine Blood (Negative) Urine Nitrite (Negative) Urine Bilirubin (Negative) Urine Urobilinogen (Negative) Ur Leukocyte Esterase (Negative) Urine WBC (Auto) (0-5) /hpf Urine RBC (Auto) (0-4) /hpf U Hyaline Cast (Auto) (0-5) /lpf U Epithel Cells (Auto) (0-5) /lpf Urine Bacteria (Auto) (Negative) SARS-CoV-2, RNA, NAAT NEGATIVE (NEGATIVE) 08/11/22 08/11/22 08/11/22 Range/Units 07:20 07:20 11:05 WBC 10.50 (4.8-10.8) K/ul RBC 3.44 L (4.70-6.10) M/uL Hgb 9.8 L (14.0-18.0) g/dl Hct 30.6 L (42.0-52.0) % MCV 89.0 (80.0-100.0) fL MCH 28.5 (25.0-34.0) pg MCHC 32.0 (32.0-36.0) g/dL RDW Std Deviation 49.3 H (36.4-46.3) fL RDW Coeff of Adrianna 15.1 H (11.5-14.5) % Plt Count 289 (130-400) K/uL MPV 9.2 L (9.4-12.4) fL Immature Gran % (Auto) 0.5 % Neut % (Auto) 55.8 % Lymph % (Auto) 35.0 % [place] % (Auto) 4.4 % Eos % (Auto) 3.8 % Baso % (Auto) 0.5 % Neut # (Auto) 5.86 (1.40-6.50) K/uL Lymph # (Auto) 3.68 H (1.2-3.4) K/uL [place] # (Auto) 0.46 (0.11-0.59) K/uL Eos # (Auto) 0.40 (0-0.50) K/uL Baso # (Auto) 0.05 (0-0.2) K/uL Immature Gran # (Auto) 0.05 (0.01-0.20) K/uL Sodium 136 (136-145) mmol/L Potassium 4.8 (3.5-5.1) mmol/L Chloride 107 (98-107) mmol/L Carbon Dioxide 22 (21-32) mmol/L Anion Gap 7 (3-11) BUN 39 H (6-23) mg/dl Creatinine 2.74 H D (0.6-1.4) mg/dl Est Cr Clr Drug Dosing 28.9 ml/min Est GFR ( Amer) 32.3 ml/min Est GFR (Non-Af Amer) 27.9 ml/min BUN/Creatinine Ratio 14.2 (10-20) Glucose 189 H (70-99(Fasting)) mg/dl POC Glucose 174 H (70-99) mg/dl Lactate (0.4-2.0) mmol/L Calcium 8.0 L (8.6-10.3) mg/dl Phosphorus 4.7 (2.5-4.9) mg/dl Magnesium 1.6 L (1.7-2.4) mg/dl Total Bilirubin (0.2-1.0) mg/dl AST (13-39) U/L ALT (7-52) U/L Alkaline Phosphatase (34-104) U/L Total Protein (6.0-8.3) gm/dl Albumin (3.4-5.0) gm/dl Globulin (2.5-4.0) gm/dl Albumin/Globulin Ratio (0.9-2) Lipase (11-82) U/L Urine Color Urine Appearance (Clear) Urine pH (4.5-7.5) Ur Specific [place] (1.000-1.030) Urine Protein (Negative) Urine Glucose (UA) (Negative) Urine Ketones (Negative) Urine Blood (Negative) Urine Nitrite (Negative) Urine Bilirubin (Negative) Urine Urobilinogen (Negative) Ur Leukocyte Esterase (Negative) Urine WBC (Auto) (0-5) /hpf Urine RBC (Auto) (0-4) /hpf U Hyaline Cast (Auto) (0-5) /lpf U Epithel Cells (Auto) (0-5) /lpf Urine Bacteria (Auto) (Negative) SARS-CoV-2, RNA, NAAT (NEGATIVE) 08/11/22 08/11/22 08/11/22 Range/Units 16:22 20:06 21:36 WBC (4.8-10.8) K/ul RBC (4.70-6.10) M/uL Hgb (14.0-18.0) g/dl Hct (42.0-52.0) % MCV (80.0-100.0) fL MCH (25.0-34.0) pg MCHC (32.0-36.0) g/dL RDW Std Deviation (36.4-46.3) fL RDW Coeff of Adrianna (11.5-14.5) % Plt Count (130-400) K/uL MPV (9.4-12.4) fL Immature Gran % (Auto) % Neut % (Auto) % Lymph % (Auto) % [place] % (Auto) % Eos % (Auto) % Baso % (Auto) % Neut # (Auto) (1.40-6.50) K/uL Lymph # (Auto) (1.2-3.4) K/uL [place] # (Auto) (0.11-0.59) K/uL Eos # (Auto) (0-0.50) K/uL Baso # (Auto) (0-0.2) K/uL Immature Gran # (Auto) (0.01-0.20) K/uL Sodium 138 (136-145) mmol/L Potassium 4.5 (3.5-5.1) mmol/L Chloride 109 H (98-107) mmol/L Carbon Dioxide 24 (21-32) mmol/L Anion Gap 5 (3-11) BUN 35 H (6-23) mg/dl Creatinine 2.56 H (0.6-1.4) mg/dl Est Cr Clr Drug Dosing 30.9 ml/min Est GFR ( Amer) 35.1 ml/min Est GFR (Non-Af Amer) 30.3 ml/min BUN/Creatinine Ratio 13.7 (10-20) Glucose 145 H (70-99(Fasting)) mg/dl POC Glucose 178 H 185 H (70-99) mg/dl Lactate (0.4-2.0) mmol/L Calcium 7.7 L (8.6-10.3) mg/dl Phosphorus (2.5-4.9) mg/dl Magnesium (1.7-2.4) mg/dl Total Bilirubin (0.2-1.0) mg/dl AST (13-39) U/L ALT (7-52) U/L Alkaline Phosphatase (34-104) U/L Total Protein (6.0-8.3) gm/dl Albumin (3.4-5.0) gm/dl Globulin (2.5-4.0) gm/dl Albumin/Globulin Ratio (0.9-2) Lipase (11-82) U/L Urine Color Urine Appearance (Clear) Urine pH (4.5-7.5) Ur Specific [place] (1.000-1.030) Urine Protein (Negative) Urine Glucose (UA) (Negative) Urine Ketones (Negative) Urine Blood (Negative) Urine Nitrite (Negative) Urine Bilirubin (Negative) Urine Urobilinogen (Negative) Ur Leukocyte Esterase (Negative) Urine WBC (Auto) (0-5) /hpf Urine RBC (Auto) (0-4) /hpf U Hyaline Cast (Auto) (0-5) /lpf U Epithel Cells (Auto) (0-5) /lpf Urine Bacteria (Auto) (Negative) SARS-CoV-2, RNA, NAAT (NEGATIVE) 08/12/22 08/12/22 08/12/22 Range/Units 02:35 05:30 05:30 WBC 9.36 (4.8-10.8) K/ul RBC 3.27 L (4.70-6.10) M/uL Hgb 9.2 L (14.0-18.0) g/dl Hct 28.9 L (42.0-52.0) % MCV 88.4 (80.0-100.0) fL MCH 28.1 (25.0-34.0) pg MCHC 31.8 L (32.0-36.0) g/dL RDW Std Deviation 47.8 H (36.4-46.3) fL RDW Coeff of Adrianna 14.8 H (11.5-14.5) % Plt Count 283 (130-400) K/uL MPV 9.2 L (9.4-12.4) fL Immature Gran % (Auto) % Neut % (Auto) % Lymph % (Auto) % [place] % (Auto) % Eos % (Auto) % Baso % (Auto) % Neut # (Auto) (1.40-6.50) K/uL Lymph # (Auto) (1.2-3.4) K/uL [place] # (Auto) (0.11-0.59) K/uL Eos # (Auto) (0-0.50) K/uL Baso # (Auto) (0-0.2) K/uL Immature Gran # (Auto) (0.01-0.20) K/uL Sodium 140 (136-145) mmol/L Potassium 4.0 (3.5-5.1) mmol/L Chloride 111 H (98-107) mmol/L Carbon Dioxide 26 (21-32) mmol/L Anion Gap 3 (3-11) BUN 29 H (6-23) mg/dl Creatinine 2.50 H (0.6-1.4) mg/dl Est Cr Clr Drug Dosing 32.1 ml/min Est GFR ( Amer) 36.1 ml/min Est GFR (Non-Af Amer) 31.2 ml/min BUN/Creatinine Ratio 11.6 (10-20) Glucose 49 L* (70-99(Fasting)) mg/dl POC Glucose (70-99) mg/dl Lactate (0.4-2.0) mmol/L Calcium 7.7 L (8.6-10.3) mg/dl Phosphorus 3.1 D (2.5-4.9) mg/dl Magnesium 2.1 (1.7-2.4) mg/dl Total Bilirubin (0.2-1.0) mg/dl AST (13-39) U/L ALT (7-52) U/L Alkaline Phosphatase (34-104) U/L Total Protein (6.0-8.3) gm/dl Albumin 2.7 L (3.4-5.0) gm/dl Globulin (2.5-4.0) gm/dl Albumin/Globulin Ratio (0.9-2) Lipase (11-82) U/L Urine Color Yellow Urine Appearance Clear (Clear) Urine pH 5.0 (4.5-7.5) Ur Specific [place] 1.012 (1.000-1.030) Urine Protein Negative (Negative) Urine Glucose (UA) Negative (Negative) Urine Ketones Negative (Negative) Urine Blood 1+ H (Negative) Urine Nitrite Negative (Negative) Urine Bilirubin Negative (Negative) Urine Urobilinogen Negative (Negative) Ur Leukocyte Esterase 2+ H (Negative) Urine WBC (Auto) >30 H (0-5) /hpf Urine RBC (Auto) 10-30 H (0-4) /hpf U Hyaline Cast (Auto) 1-5 (0-5) /lpf U Epithel Cells (Auto) >30 H (0-5) /lpf Urine Bacteria (Auto) Negative (Negative) SARS-CoV-2, RNA, NAAT (NEGATIVE) 08/12/22 08/12/22 Range/Units 07:06 11:25 WBC (4.8-10.8) K/ul RBC (4.70-6.10) M/uL Hgb (14.0-18.0) g/dl Hct (42.0-52.0) % MCV (80.0-100.0) fL MCH (25.0-34.0) pg MCHC (32.0-36.0) g/dL RDW Std Deviation (36.4-46.3) fL RDW Coeff of Adrianna (11.5-14.5) % Plt Count (130-400) K/uL MPV (9.4-12.4) fL Immature Gran % (Auto) % Neut % (Auto) % Lymph % (Auto) % [place] % (Auto) % Eos % (Auto) % Baso % (Auto) % Neut # (Auto) (1.40-6.50) K/uL Lymph # (Auto) (1.2-3.4) K/uL [place] # (Auto) (0.11-0.59) K/uL Eos # (Auto) (0-0.50) K/uL Baso # (Auto) (0-0.2) K/uL Immature Gran # (Auto) (0.01-0.20) K/uL Sodium (136-145) mmol/L Potassium (3.5-5.1) mmol/L Chloride (98-107) mmol/L Carbon Dioxide (21-32) mmol/L Anion Gap (3-11) BUN (6-23) mg/dl Creatinine (0.6-1.4) mg/dl Est Cr Clr Drug Dosing ml/min Est GFR ( Amer) ml/min Est GFR (Non-Af Amer) ml/min BUN/Creatinine Ratio (10-20) Glucose (70-99(Fasting)) mg/dl POC Glucose 74 180 H (70-99) mg/dl Lactate (0.4-2.0) mmol/L Calcium (8.6-10.3) mg/dl Phosphorus (2.5-4.9) mg/dl Magnesium (1.7-2.4) mg/dl Total Bilirubin (0.2-1.0) mg/dl AST (13-39) U/L ALT (7-52) U/L Alkaline Phosphatase (34-104) U/L Total Protein (6.0-8.3) gm/dl Albumin (3.4-5.0) gm/dl Globulin (2.5-4.0) gm/dl Albumin/Globulin Ratio (0.9-2) Lipase (11-82) U/L Urine Color Urine Appearance (Clear) Urine pH (4.5-7.5) Ur Specific [place] (1.000-1.030) Urine Protein (Negative) Urine Glucose (UA) (Negative) Urine Ketones (Negative) Urine Blood (Negative) Urine Nitrite (Negative) Urine Bilirubin (Negative) Urine Urobilinogen (Negative) Ur Leukocyte Esterase (Negative) Urine WBC (Auto) (0-5) /hpf Urine RBC (Auto) (0-4) /hpf U Hyaline Cast (Auto) (0-5) /lpf U Epithel Cells (Auto) (0-5) /lpf Urine Bacteria (Auto) (Negative) SARS-CoV-2, RNA, NAAT (NEGATIVE)
[2022-08-12] MEDS ORDERED: PANCREAZE (LIPASE 10,500U) CAP PO SCH (12:00)
--- NOTE | 2022-08-12 12:58 | Discharge Summary ---
Date of Service August 12, 2022 Admission HPI Per Admitting Provider This is a 37-year-old male with PMHx of cystic fibrosis with pancreatic insufficiency and malnutrition, gastroparesis,, immunosuppression therapy, lung transplant in 2016, Blayne fundoplication, DM due to aforementioned on insulin pump, osteopenia, vitamin D deficiency, GERD who presents with abdominal pain. Pt reports starting to have abdominal pain, cramping and discomfort yesterday which lasted all night. Pt is passing gas, no bowel movement today, last BM was 7:30pm last evening with diarrhea twice at that time. He states pain was not relieved with the BM. Admits that he had some nausea, but no vomiting due to hx of Blayne procedure. He has previously used mirilax to help but ran out of this at home. Pt has had similar episodes like this before and has used mirilax to help with this in the past. Pt denies any recent sick contacts. He admits to some chills, but denies fever and sweats. Pt was able to take all of his normal home medications last night, but did not take any this morning yet. He reports having a gastric emptying study last week which he reports it was normal. Pt notes more cramping than normal during the last bout which was about 5 years ago. He has previously required bowel prep and enemas to resolve obstructions along with NGT to treat such. Admission Exam Per Admitting Provider Constitutional: WD/WN, vitals as above Eyes: PERRL, conjunctivae normal, anicteric sclerae ENMT: external ear and nose normal, oropharynx normal Neck: trachea midline, no thyromegaly Respiratory: normal respiratory effort, lungs clear to auscultation Cardiovascular: RRR, no murmur, no edema Chest (Breasts): Chest: normal inspection of chest Gastrointestinal (Abdomen): normal bowel sounds, soft, nontender, no hepatosplenomegaly Musculoskeletal: no cyanosis or clubbing, extremities motor strength 5/5 Skin: no rashes, warm and dry Neurologic: PERRL, EOMI, accommodation nl, no face palsy, no dysarthria Psychiatric: A+Ox3, euthymic affect Principal Diagnosis Constipation, partial bowel obstruction, history of cystic fibrosis KRISTI Discharge Exam Constitutional: WD/WN,M in NAD Eyes: PERRL, EOMI, conjunctivae normal, anicteric sclerae ENMT: external ear and nose normal, oropharynx normal Neck: supple Respiratory: normal respiratory effort, lungs clear to auscultation Cardiovascular: RRR, no murmur, no edema Chest (Breasts): Chest: normal inspection of chest Gastrointestinal (Abdomen): normal bowel sounds, soft, nontender Musculoskeletal: extremities motor strength 5/5 Skin: no rashes, warm and dry Neurologic: PERRL, EOMI, no face palsy, no dysarthria, moves extremities Psychiatric: A+Ox3, euthymic affect Discharge Data Allergies Allergy/AdvReac Type Severity Reaction Status Date / Time vancomycin Allergy Intermediate Red man Verified 10/19/21 12:09 syndrome Consultations 08/10/22 07:18 Consult General Surgery Stat ED Decision to Admit Stat 08/10/22 13:23 Consult Gastroenterology Routine 08/10/22 15:33 Consult General Surgery Routine 08/11/22 12:25 Consult Nephrology Routine Ordered Studies 08/10/22 05:20 CT abd pelvis wo con Stat FINDINGS: A moderate-sized hiatal hernia with partially intrathoracic stomach is present. There is a small amount of ascites within the hernia. Subpleural reticulation and groundglass opacities within the lower lungs are noted. There is no pneumatosis, free air or portal venous gas. Evaluation of the abdomen and pelvis is suboptimal on this unenhanced examination. Unenhanced images of the liver, spleen and adrenal glands are unremarkable. There is fatty atrophy of the pancreas. No biliary or pancreatic ductal dilatation is present. There is no evidence for acute appendicitis. There is moderate wall thickening of numerous small bowel loops. The wall appears edematous. There is associated mesenteric stranding and a small amount of ascites. Several small bowel loops are mildly dilated and fluid-filled as well. A well-defined transition point is not identified. The right colon is also mildly dilated. There is a moderate amount of stool within the colon. No colonic transition point is identified. There is no fluid collection. Mild bladder wall thickening is unchanged. There is trace ascites within the pelvis. No acute fractures are present. There is no lymphadenopathy. Small bilateral renal calculi are noted. These measure up to 4 mm. There are no ureteral calculi. There is no hydronephrosis. IMPRESSION: 1. Edematous wall thickening of numerous small bowel loops as well as mild wall thickening of the right colon with associated mesenteric stranding and a small amount of ascites. In addition, multiple small bowel loops are mildly dilated and fluid-filled raising the possibility of a partial small bowel obstruction although no discrete contusion point. The findings represent a nonspecific enterocolitis however distal intestinal obstruction syndrome is a consideration given cystic fibrosis. 2. No evidence for acute appendicitis. 3. Bilateral nephrolithiasis. No ureteral calculi. No hydronephrosis. 4. Mild bladder wall thickening, unchanged. 5. Fatty atrophy of the pancreas consistent with cystic fibrosis. Hospital Course (1) Cystic fibrosis: (2) Abdominal pain: On admission - Transplant Team at [facility] was called and notified about the patients status and admission to the hospital. Discussed with Dr. Waleska See (cell: [phone]) - Concerned for JOYCE - distal intestinal obstructive syndrome. Usually pt requires NGT, barium enema with IR if high stool burden however at this time does not appear that way on CT. Go-lytely PO now- but if nauseous and vomits will need to place NGT. Low threshold for possible transfer if pt is not improved within the next 24 hrs. Hold everlimus. Continue tacrolimus, 1 mg Q12H- starting now and then 6 am and 6pm and will draw tacromilus labs. , - if he vomits it then will need sublingual and needs dose changes - call back to discuss those dosing recommendations. Cont prednisone for now but if doesnt tolerate then switch to solumedrol 4 mg IV. If any decompensation, then will need stress dosing and likely transfer. - WBC 17.19, neutrophils 13.94 indicating a left shift, Hgb 11.7, HCT 36.5, PLT 283. - Start on Zosyn IV with leukocytosis - CT reviewed showin. Edematous wall thickening of numerous small bowel loops as well as mild wall thickening of the right colon with associated mesenteric stranding and a small amount of ascites. In addition, multiple small bowel loops are mildly dilated and fluid-filled raising the possibility of a partial small bowel obstruction although no discrete contusion point. The findings represent a nonspecific enterocolitis however distal intestinal obstruction syndrome is a consideration given cystic fibrosis. 2. No evidence for acute appendicitis. 3. Bilateral nephrolithiasis. No ureteral calculi. No hydronephrosis. 4. Mild bladder wall thickening, unchanged. 5. Fatty atrophy of the pancreas consistent with cystic fibrosis. - Consult GI and General Surgery - Dr. Angel - plan for IVFs, NPO except meds, advance diet if tolerates and moves bowels, no plans for surgery at this time and will continue with conservative management - Lipase < 3 - Will check stool studies and PCR to r/o infectious cause with hx of being on immunosuppressants 08/11 -patient had a bowel movement yesterday after GoLytely. Unfortunately stool studies were not obtained. Currently denies any abdominal pain. Denies nausea. White blood cell count now normalized. We will advance diet to clear liquid. 08/12 -patient is tolerating full liquid diet, denies any more abdominal pain. Denies any nausea or vomiting. WBC normalized yesterday. (3) Lung transplant status, bilateral: - Underwent double lung transplant for cystic fibrosis on 02/22/2016. Basiliximab induction, CMV mismatch, EBV +/+, complicated by severe PGD requiring post operative VV ECMO and open chest for a few days, recovered quickly and was weaned off O2 after about 10 days. - CoVID -19 infection in mid July 2021 now resolved with outpatient MAB and levofloxacin. - Pt is on immunosuppressant therapies including zenpep, tacrolimus, everolimus, valgancyclovir, prednisone 5 mg daily, He is OFF xifata and azithromycin mwf for past 6 months. - Transplant team rec holding everolimus but will continue all other therapies - follows with transplant team in [facility] with Dr. 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 Bobbi Mckeon (5) CKD (chronic kidney disease), stage III: KRISTI on CKD Cr up at 2.7 from 2 , then down to 2.5 - Cr. chronically in the mid 2s since 2020, on admission Cr. is 2.03, BUN 27, trend with am labs - received IVF, seen by nephrology (6) GERD (gastroesophageal reflux disease): - Cont nexium, EGD hx in 2017 notable for LA grade C reflux esophagitis with possible short segment Barretts endoscopically but biopsy negative, and large hiatal hernia, s/p fundoplication in July 2020 - Plan was to possibly repeat alejandra/manometry to assess as barium swallow - pt reports this was done last week but was negative for specific findings regarding gastroparesis. Previously revealed moderate paraesophageal hernia containing the intact Hang wrap. (7) Vitamin D deficiency: - on supplement - planned for DEXA scan this year Total Time Total Time Spent Total Time Spent (In Minutes): 40 Discharge Plan Discharge Items Patient Disposition: Home - Self-Care Reason For Visit: SMALL BOWEL OBSTRUCTION Discharge Diagnosis: Constipation, partial bowel obstruction, history of cystic fibrosis KRISTI Activity: Per Instructions section Non-emergency contact: Primary Care Provider and Specialist Call non-emergency contact if: you have any medication questions and your symptoms worsen Follow-up/Referrals: Sindy Isbell MD [Primary Care Provider] - Diet: Carb Count or DM1 and Low Fiber Addtl Attending Provider Instructions: Follow-up with your primary care doctor, and your transplant team. Finish antibiotic treatment with Augmentin, as prescribed. Make sure to stay well-hydrated. Slowly advance your diet to low fiber, and further advance to regular. Pending Studies at Discharge: Yes Studies:: final blood cultx Stand-Alone Forms: My [facility] [employer], Smoking Cessation Medications and DC Order Prescriptions: New amoxicillin-pot clavulanate 875-125 mg tablet 1 tab PO BID 3 Days Qty: 6 0RF Continued (DME) Accu-Chek Guide test strips Strip See Rx Instructions .ROUTE .MEDSUPPLY Qty: 500 3RF Rx Instructions: Test five times daily Novolog U-100 Insulin aspart 100 unit/mL solution See Rx Instructions continuous subcutaneous infusion UD 90 Days Qty: 90 0RF Rx Instructions: Use up to 100 units daily continuous subcutaneous infusion as directed ergocalciferol (vitamin D2) [Vitamin D2] 1,250 mcg (50,000 unit) capsule 1,250 mcg PO DAILY valganciclovir 450 mg tablet 450 mg PO DAILY prednisone 5 mg tablet 5 mg PO QAM fexofenadine [Radha Allergy] 180 mg Tablet 180 mg PO QAM PRN (Reason: nasal congestion) metoprolol tartrate 50 mg tablet 50 mg PO BID magnesium 250 mg Tablet 250 mg PO BID albuterol sulfate [Ventolin HFA] 90 mcg/actuation Hfa Aerosol Inhaler 2 puff INHALATION Q4H PRN (Reason: Shortness Of Breath Or Wheezing) ferrous sulfate 325 mg (65 mg iron) Tablet,Delayed Release (Dr/Ec) 325 mg PO BID Zenpep 40,000-126,000- 168,000 unit Capsule,Delayed Release(Dr/Ec) 6 cap PO UD Rx Instructions: take 6 capsules with meals, take 1 capsule w/snacks everolimus (immunosuppressive) [Zortress] 0.5 mg tablet 1 mg PO BID acetaminophen [Tylenol] 325 mg Tablet 650 mg PO Q6H PRN (Reason: fever/pain) tacrolimus 1 mg Capsule 2 mg PO BID metoclopramide HCl 10 mg Tablet 10 mg PO ACHS Discharge Orders: Discharge Order (Routine); Ordered 08/12/22 Ordered By: Oc Emmanuel Admission Data Admit Date/Time: 08/10/22 09:05 Attending Provider: Oc Emmanuel Admit Provider: Yulia Gillette Primary Care Provider: Sindy Isbell Other Providers: Meghan Angel ; Yusef Lynn ; Stephen Holden ; Mina Marti ; Kandis Hilton Kevin C. ; Nataly Multani
== END 2022-08-12 14:40 | disposition home or self-care (01) | DRG 389 ==
LOC: ED 05:11 → EDINP 09:05 → 2W 14:12
DX: E46 Unspecified protein-calorie malnutrition; E13.43 Other specified diabetes mellitus with diabetic autonomic (poly)neuropathy; N18.30 Chronic kidney disease, stage 3 unspecified; Z88.1 Allergy status to other antibiotic agents; D84.821 Immunodeficiency due to drugs; E55.9 Vitamin D deficiency, unspecified; K56.600 Partial intestinal obstruction, unspecified as to cause; Z79.4 Long term (current) use of insulin; K59.00 Constipation, unspecified; N17.9 Acute kidney failure, unspecified; E84.9 Cystic fibrosis, unspecified; E13.21 Other specified diabetes mellitus with diabetic nephropathy; Z94.2 Lung transplant status; K21.9 Gastro-esophageal reflux disease without esophagitis; Z86.16 Personal history of COVID-19